=== PATIENT | male | born 1975 | race Caucasian/White ===

== ENCOUNTER 2021-03-15 08:12 | Emergency (ER) | payer BC, SELFPAY ==
[2021-03-15 08:14] VITALS: PULSE 94; RESP 28; TEMP 36.8; O2SAT 96; BMI 31.1
[2021-03-15 08:21] VITALS: BMI 31.1
--- NOTE | 2021-03-15 08:24 | EKG12_ITS ---
Test Reason : STROKE TEAM Blood Pressure : / mmHG Vent. Rate : 086 BPM Atrial Rate : 086 BPM P-R Int : 138 ms QRS Dur : 088 ms QT Int : 378 ms P-R-T Axes : 053 026 050 degrees QTc Int : 452 ms Normal sinus rhythm Low voltage QRS Borderline ECG Confirmed by CORNELIA LILLY, LORENA ([id number]), editor newspaper GUSTAVO AUSTIN ([id number]) on 03/16/2021 11:02:33 AM Referred By: JESSY Confirmed By:LORENA LOCKE MD
--- NOTE | 2021-03-15 08:24 | CT_ITS ---
STUDY: CT HEAD STROKE PROTOCOL W/O CONTRAST INJECTION REASON FOR EXAM: Male, 46 years old. Neuro deficit, acute, stroke suspected RADIATION DOSAGE (If Supplied By Facility): CTDIvol = ( ) mGy, DLP = ( ) mGycm TECHNIQUE: Transaxial CT imaging of the brain was performed without administration of intravenous contrast material. Individualized dose optimization techniques were used for this CT. COMPARISON: No relevant priors. FINDINGS: Normal soft tissue structures. Normal calvarium. Normal size ventricles and extra-axial spaces for the patient''s age. Normal white matter tracts of the cerebral hemispheres. Normal basal ganglia and thalami. Normal brainstem. Normal cerebellum. There is no intracranial hemorrhage. Subtle loss of leung-white differentiation within the right temporal lobe with increased attenuation of the right middle cerebral artery (dense MCA sign) worrisome for an acute right middle cerebral artery infarct. Mucosal thickening of the johnson of the left maxillary sinus consistent with chronic sinusitis. ASPECT score: CT/STROKE Brain/Head without Cont IMPRESSION: Suspect acute right middle cerebral artery infarct. No intracranial hemorrhage. Correlation with MRI is recommended. N.B. : The above Results were Read Back by Aman Mclaughlin MD to Fady Brian MD, and understanding confirmed on 03/15/2021 08:47:55 (ET). Electronically Signed: Aman Mclaughlin MD at 8:49 EST Tel , Service support ,
--- NOTE | 2021-03-15 08:24 | RAD_ITS ---
STUDY: X-RAY CHEST REASON FOR EXAM: Male, 46 years old. Neuro deficit, acute, stroke suspected TECHNIQUE: Single AP portable view of the chest. COMPARISON: None. FINDINGS: The lungs are clear and expanded. There is no demonstrated pleural abnormality. Normal size heart. Normal mediastinum and vernell. Normal visualized pulmonary arteries. Normal visualized aortic arch and descending thoracic aorta. Normal visualized thoracic spine. Normal visualized ribs, clavicles, and shoulders. There is no demonstrated abnormality of the visualized soft tissue structures of the upper abdomen. RAD/Chest 1 View IMPRESSION: Normal x-ray examination of the chest. Electronically Signed: Aman Mclaughlin MD at 9:21 EST Tel , Service support ,
[2021-03-15 08:25] VITALS: BP 124/88; PULSE 86; RESP 24; O2SAT 94
[2021-03-15 08:25] LABS: Bedside Glucose 123 mg/dL (70-110)
--- NOTE | 2021-03-15 08:25 | CT_ITS ---
STUDY: CTA HEAD AND NECK WITH CONTRAST REASON FOR EXAM: Male, 46 years old. Neuro deficit, acute, stroke suspected RADIATION DOSAGE (If Supplied By Facility): CTDIvol = ( 17.93 ) mGy, DLP = ( 804.30 ) mGycm TECHNIQUE: CT angiography was performed with a multi-detector CT scanner. Data acquisition was obtained from the skull base through the vertex following intravenous administration of . MIP images were reconstructed from the axial data set. Post-processing of the angiographic images was performed, with multiplanar reformation and 3D reconstruction. Individualized dose optimization techniques were used for this CT. COMPARISON: No relevant priors. FINDINGS: Normal bilateral petrous carotid arteries. Normal right cavernous carotid artery with a normal supraclinoid bifurcation. Normal left cavernous carotid artery with a normal supraclinoid bifurcation. Normal right A1 segments of the anterior cerebral artery. Normal left A1 segments of the anterior cerebral artery. Normal intact anterior communicating artery (ACOM). Normal bilateral A2 segments of the anterior cerebral arteries. Lack of enhancement of the M1 segment right middle cerebral artery with reconstitution distally in the sylvian fissure worrisome for occlusion. Oormal left M1 and M2 segments of the middle cerebral arteries, with a normal M1 bifurcation. Normal right posterior communicating artery (PCOM). Normal left posterior communicating artery (PCOM). Normal bilateral vertebral arteries. Normal basilar artery with a normal basilar bifurcation. The visualized bilateral superior cerebellar (SCA) arteries are normal. Normal bilateral P1, P2 and visualized P3 segments of the posterior cerebral arteries. There is no demonstrated aneurysm of the nikolski of Page. There is no demonstrated abnormality of the visualized brain. AORTIC ARCH: There is a bovine origin of the great vessels arising from the aortic arch with a common origin of the brachiocephalic and left common carotid artery. Normal origin of the left subclavian artery. Normal origins of the brachiocephalic, left common carotid, and left subclavian arteries. RIGHT CAROTID ARTERIES: Normal right common carotid artery (CCA). Normal right common carotid bulb. Normal origin of the right internal carotid (ICA) artery without a hemodynamically significant stenosis. Normal visualized cervical portion of the right internal carotid artery. Normal origin of the right external carotid artery (ECA). LEFT CAROTID ARTERIES: Normal left common carotid artery (CCA). Normal left common carotid bulb. Normal origin of the left internal carotid (ICA) artery without a hemodynamically significant stenosis. Normal visualized cervical portion of the left internal carotid artery. Normal origin of the left external carotid artery (ECA). VERTEBRAL ARTERIES: Normal bilateral vertebral arteries. CT/STROKE CTA Head AND Neck W/Con IMPRESSION: 1. Occluded M1 segment of the right middle cerebral artery with reconstitution of the distal M1 segment proximal M2 segment in the sylvian fissure. No other intracranial stenosis or aneurysm. 2. Bovine arch. 3. No carotid stenosis. 4. Patent vertebral arteries bilaterally. N.B. : The above Results were Read Back by Aman Mclaughlin MD to Fady Brian and understanding confirmed on 03/15/2021 09:00:34 (ET). Electronically Signed: Aman Mclaughlin MD at 9:02 EST Tel , Service support ,
[2021-03-15 08:35] LABS: Absolute Lymphocyte Count 1.02 X10^3/uL (0.83-4.51); Absolute Neutrophil Count 11.3 X10^3/uL (2.0-7.7); Basophil# 0.03 X10^3/uL; Basophil% 0.2 % (0-1); Eosinophil# 0.03 X10^3/uL; Eosinophils% 0.2 % (0-5); Hematocrit 39.4 % (40-54); Hemoglobin 13.2 g/dL (13.0-16.5); Lymphocyte # 1.02 X10^3/ul (0.83-4.51); Lymphocyte % 7.8 % (19-41); Mean Corp Hgb Conc 33.5 g/dL (32-36); Mean Corpuscular Hgb 32.1 pg (27.0-32.0); Mean Corpuscular Volume 95.9 fL (80-94); Mean Platelet Vol. 9.6 fl (6.2-12.0); Monocyte# 0.62 X10^3/uL; Monocyte% 4.8 % (0-10); NRBC Flagged by Analyzer 0 % (0-5); Neutrophil # 11.28 X10^3/uL (2.7-7.7); Neutrophil % 86.5 % (47-70); Platelet Count 262 K/mm3 (150-450); RBC Distribution Width CV 12.6 % (11.6-14.6); RBC Distribution Width SD 44.6 fl (35.1-43.9); Red Blood Count 4.11 M/mm3 (4.6-6.2); White Blood Count 13.1 K/mm3 (4.4-11.0)
[2021-03-15 08:37] VITALS: O2SAT 97; BMI 31.1
--- NOTE | 2021-03-15 08:40 | NURSING ---
NO OLD EKG IN OUR SYSTEM
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
[2021-03-15 08:52] LABS: Anion Gap 5 (5-15); BUN 14 mg/dL (7-18); BUN/Creat Ratio 15.4 RATIO (10-20); Calcium,Total 7.5 mg/dL (8.5-10.1); Chloride 114 mmol/L (98-107); Creatinine, Serum 0.91 mg/dL (0.70-1.30); EST Glomerular Filtration Rate 94 mL/min (>60); Est Glom Filt Rate - Afr Amer 114 mL/min (>60); Estimated Creatinine Clearance 99.27 ml/min; Glucose 94 mg/dL (74-106); Sodium Level 142 mmol/L (136-145); Troponin-I HS 6 pg/mL (3.0-78.0)
[2021-03-15 08:53] LABS: Alcohol, Blood (Medical)-Serum < 3.0 mg/dL
[2021-03-15 09:10] LABS: International Normalized Ratio 1.4; Prothrombin Time (Protime)PT. 16.2 SECONDS (11.7-14.9)
[2021-03-15 09:11] LABS: Partial Thromboplast Time 31.9 Seconds (24.1-36.2)
--- NOTE | 2021-03-15 09:16 | RAD_ITS ---
STUDY: X-RAY - PELVIS AND LEFT HIP REASON FOR EXAM: Male, 46 years old. pain TECHNIQUE: 3 views of the pelvis and hip. COMPARISON: None. FINDINGS: There is a non-specific bowel gas pattern. Normal visualized soft tissue structures. Normal bilateral iliac wings, sacroiliac joints and visualized sacrum. Normal bilateral superior and inferior pubic rami. Normal pubic symphysis. Normal bilateral ischial tuberosities. Normal visualized femoral head. Normal acetabulum. Normal hip joint. RAD/HIP, UNI W/ Pelvis 2-3 Views IMPRESSION: Normal x-ray examination of the pelvis and hip. Electronically Signed: Aman Mclaughlin MD at 9:53 EST Tel , Service support ,
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
[2021-03-15 09:18] VITALS: BP 118/86; PULSE 96; RESP 19; RESP 23; O2SAT 96; O2SAT 97
[2021-03-15 09:30] VITALS: BP 118/86; PULSE 76; RESP 19; O2SAT 97
[2021-03-15 09:36] VITALS: BP 118/76; PULSE 76; RESP 19; O2SAT 97
--- NOTE | 2021-03-15 09:37 | ED.RN ---
pt is NPO.
--- NOTE | 2021-03-15 09:51 | ED.RN ---
per pt okay to give information to son, leoncio.
--- NOTE | 2021-03-15 10:03 | ED.RN ---
per elsa at [facility], no RN report needed.
== END 2021-03-15 09:59 | disposition short-term general hospital (02) ==
PROVIDERS: Emergency Provider Emergency Medicine; PCP Family Medicine
DX: I63.511 Cerebral infarction due to unspecified occlusion or stenosis of right middle cerebral artery (principal); R47.81 Slurred speech; G83.24 Monoplegia of upper limb affecting left nondominant side; G83.14 Monoplegia of lower limb affecting left nondominant side; R29.810 Facial weakness; R29.712 NIHSS score 12; I10 Essential (primary) hypertension; G43.909 Migraine, unspecified, not intractable, without status migrainosus; Z79.899 Other long term (current) drug therapy; F17.210 Nicotine dependence, cigarettes, uncomplicated; Z86.73 Personal history of transient ischemic attack (TIA), and cerebral infarction without residual deficits
CPT/HCPCS: 70450; 70496; 70498; 71045; 73502; 73630; 80048; 82077; 82962; 84484; 85025; 85610; 85730; 93005; 99285; Q9967; A4216

== ENCOUNTER 2021-03-20 18:40 | Inpatient (IN) | payer BC, SELFPAY ==
[2021-03-20 18:57] VITALS: BMI 29.3
[2021-03-20 19:05] VITALS: BP 121/84; PULSE 82; RESP 16; TEMP 36.4; O2SAT 96
[2021-03-20 19:32] VITALS: O2SAT 98
[2021-03-20] MEDS: Atorvastatin Calcium 40 MG Tablet PO (21:51)
[2021-03-20 22:00] VITALS: BP 124/80; PULSE 80; RESP 18; TEMP 36.6; O2SAT 96
[2021-03-21] MEDS: Enoxaparin 40 MG/0.4 ML Syringe SC (05:49)
[2021-03-21 08:10] VITALS: O2SAT 95
[2021-03-21 08:33] VITALS: BP 105/62; PULSE 80; RESP 16; TEMP 36.1; O2SAT 96
[2021-03-21] MEDS: Pantoprazole Sodium 40 MG Tablet PO (08:51)
[2021-03-21 08:52] VITALS: BP 105/62; PULSE 80
[2021-03-21] MEDS: Methocarbamol 750 MG Tablet PO (08:52)
[2021-03-21] MEDS: Metoprolol(XL)Succ 25 MG Tablet PO (08:52)
[2021-03-21] MEDS: Aspirin 81 MG TAB.CHEW PO (08:52)
[2021-03-21] MEDS: Lisinopril 10 MG Tablet PO (08:53)
[2021-03-21] MEDS: Montelukast 10 MG Tablet PO (08:53)
[2021-03-21] MEDS: Acetaminophen 325 MG Tablet 650 MG PO ×2 (08:58→21:04)
[2021-03-21 09:24] LABS: ALB/GLOB Ratio 0.7 RATIO (0.9-2.4); AST(SGOT) 41 U/L (15-37); Alanine Aminotransfer ALT/SGPT 71 U/L (16-61); Alkaline Phosphatase 82 U/L (45-117); Anion Gap 6 (5-15); BUN 14 mg/dL (7-18); BUN/Creat Ratio 12.3 RATIO (10-20); Calcium,Total 9.3 mg/dL (8.5-10.1); Chloride 104 mmol/L (98-107); Creatinine, Serum 1.14 mg/dL (0.70-1.30); EST Glomerular Filtration Rate 73 mL/min (>60); Est Glom Filt Rate - Afr Amer 88 mL/min (>60); Estimated Creatinine Clearance 79.24 ml/min; Globulin 4.2 g/dL (2.2-4.2); Glucose 109 mg/dL (74-106); Magnesium 2.1 mg/dL (1.6-2.6); Phosphorus 2.8 mg/dL (2.5-4.9); Protein, Total 7.2 g/dL (6.4-8.2); Sodium Level 138 mmol/L (136-145)
[2021-03-21 10:06] LABS: Hematocrit 40.7 % (40-54); Hemoglobin 13.5 g/dL (13.0-16.5); Mean Corp Hgb Conc 33.2 g/dL (32-36); Mean Corpuscular Hgb 31.8 pg (27.0-32.0); Mean Corpuscular Volume 95.8 fL (80-94); Mean Platelet Vol. 9.6 fl (6.2-12.0); Platelet Count 365 K/mm3 (150-450); RBC Distribution Width CV 12.6 % (11.6-14.6); RBC Distribution Width SD 43.9 fl (35.1-43.9); Red Blood Count 4.25 M/mm3 (4.6-6.2); White Blood Count 7.1 K/mm3 (4.4-11.0)
--- NOTE | 2021-03-21 17:53 | HP.PCM_ITS ---
HPI - General General Date of Admission: 03/20/21 Date of Service: 03/21/21 Chief Complaint: Debility due to ischemic CVA. HPI Narrative CASTILLO HOLLINS, is a 46 YO M with a PMH of ischemic CVA (2018), CAD with AL and hx of PTCA/2 stent (2019), HTN, HLD, GERD, tobacco dependence and migraines who presented to the ED at [facility] on 03/15/21 c/o difficulty walking and falls. EMS found him to have a facial droop, slurred speech and Left side weakness. NIHSS score was 12 upon arrival to the ED. Initial head CT showed a dense MCA sign with edematous temporal lobe. He was not a candidate for TPA because he was outside the time window. A CTA showed an occluded M1 segment on the right. Consult with [facility] teleneurology was obtained and the patient was transferred to [facility] for possible endovascular intervention. Upon arrival at [facility] the NIHSS was 13. MRI showed an acute infarct in the right MCA territory involving the right putamen, head of the caudate nucleus, internal capsule, insular cortex and the anterior right temporal lobe. There were small punctate foci of restricted diffusion within the right frontal and parietal cortices. There was diffuse parenchymal edema in the areas of diffusion restriction, particularly the anterior right temporal lobe and right basal ganglia. There were small petechial hemorrhages throughout the infarcted regions of the right basal ganglia. Additional studies showed an ischemic penumbra. He underwent Thrombectomy with return of TICI3 flow. He was evaluated by PT/OT/ST and transfer to acute rehab was recommended. He was transferred to the Acute rehab unit at [facility] on 03/21/21 for 3 hours of therapy daily to restore function/independence at or near his prior level of function. 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 He has tried a nicotine patch and Chantix in the past to help him stop smoking and hen continues to help. [facility] Medical History (Updated 03/30/21 @ 11:[address] Anjum Munoz MD) Asthma History of CVA (cerebrovascular accident) HTN (hypertension) Migraine Renal cyst Home Medications atorvastatin 40 mg PO DAILY 03/15/21 [History Last Taken Unknown] lisinopril 10 mg PO DAILY 03/15/21 [History Last Taken Unknown] metoprolol succinate 25 mg PO DAILY 03/15/21 [History Last Taken Unknown] montelukast 10 mg PO DAILY 03/15/21 [History Last Taken Unknown] pantoprazole 40 mg PO DAILY 03/15/21 [History Last Taken Unknown] aspirin 81 mg PO DAILY 03/20/21 [History Last Taken Unknown] methocarbamol 750 mg PO Q8H 03/20/21 [History Last Taken Unknown] nicotine 1 patch TRANSDERMAL DAILY 03/20/21 [History Last Taken Unknown] Allergy/AdvReac Type Severity Reaction Status Date / Time bee venom protein (honey bee) Allergy NEEDS Verified 03/15/21 08:18 FOLLOW-UP Family History (Updated 03/28/21 @ 10:[address] Layla Parekh MD) Uncle CAD (coronary artery disease) Father Aneurysm Hypertension Mother Hypertension Other Myocardial infarction Family History unable to obtain Surgical History (Updated 03/21/21 @ 19:[address] hSalini Stanley DO) History of cholecystectomy History of cosmetic plastic surgery History of intravascular stent placement Social History (Updated 03/21/21 @ 19:[address] 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 Smoking Status: Current every day smoker tobacco type: cigarettes Tobacco: How many years used: 35 how long ago did patient quit smokin week quit status: considering quitting counseling given: provider counseling substance use type: does not use caffeine: Yes ROS Constitutional Constitutional: Reports fatigue and weakness; Denies anorexia, change in weight, chills, fever(s) or night sweats Eyes Eyes: Denies blurry vision, change in vision, double vision, eye pain or loss of vision ENT HEENT: Denies abnormal hearing, dental pain, dysphagia, headache(s), hearing loss, nasal congestion or sore throat Cardiovascular Cardiovascular: Reports chest pain; Denies dyspnea on exertion, edema, light headedness, orthopnea, palpitations, paroxysmal nocturnal dyspnea or syncope Respiratory/Chest Respiratory/Chest: Denies cough, dyspnea, shortness of breath at rest, shortness of breath with exertion or wheezing Gastrointestinal Gastrointestinal: Denies abdominal pain, constipation, diarrhea, dyspepsia, hematemesis, hematochezia, nausea or vomiting Genitourinary Genitourinary: Denies dysuria, hematuria, nocturia, urinary frequency, urinary hesitancy, urinary incontinence or urinary urgency Musculoskeletal Musculoskeletal: Reports muscle weakness and neck pain; Denies back pain, joint pain or joint swelling Integumentary Integumentary: Denies jaundice, rash or wounds Neurologic Neurologic: Reports abnormal gait, confusion, focal weakness and headache(s); Denies disequilibrium, dizziness, paresthesias, seizures or tremor(s) Psychiatric Psychiatric: Denies anxiety, depression, homicidal ideation or suicidal ideation Endocrine Endocrinology: Denies change in body appearance, polydipsia or polyuria Hematologic/Lymphatic Hematologic/Lymphatic: Denies easy bleeding, easy bruising or lymphadenopathy Allergic/Immunologic Allergic/Immunologic: Denies rhinitis, eczemia or asthma Vital Signs Vital Signs Vital Signs: 03/20/21 19:05 03/20/21 19:32 03/20/21 22:00 Temperature 97.6 F L 97.8 F Temperature Source Oral Oral Pulse Rate 82 80 Respiratory Rate 16 18 Blood Pressure 121/84 H 124/80 H Blood Pressure Mean 96 94 Blood Pressure Source Monitor Monitor Blood Pressure Position Semi-Fowlers Semi-Fowlers Blood Pressure Location Right Arm Right Arm Pulse Ox 96 98 96 Oxygen Delivery Method Room Air Room Air Room Air 03/21/21 08:10 03/21/21 08:33 03/21/21 08:52 Temperature 97.0 F L Temperature Source Oral Pulse Rate 80 80 Respiratory Rate 16 Blood Pressure 105/62 105/62 Blood Pressure Mean 76 Blood Pressure Source Monitor Blood Pressure Position Sitting Blood Pressure Location Right Arm Pulse Ox 95 96 Oxygen Delivery Method Room Air Room Air Weight Weight: 194 lb 10.691 oz Body Mass Index (BMI) 29.3 Indicators for Scoring Admitted with or Primary Diagnosis of CVA/Stroke: Yes Hx of CVA/Stroke: Yes Modified Macy Score MRS Score at time of Evaluation: 3-Moderate disability NIHSS NIHSS 1a. Level of Consciousness: Alert; keenly responsive 1b. LOC Questions: Answers BOTH questions correctly. 1c. LOC Commands: Performs both tasks correctly. 2. Best Gaze: Normal 3. Visual: No visual loss 4. Facial Palsy: Normal symmetrical movements 5a. Left Arm: Drift; arm drifts downward but doesn?t hit the bed 5b. Right Arm: No drift; arm holds 90 (or 45) degrees for full 10 seconds 6a. Left Leg: Drift; leg falls by the end of 5-seconds, but does not hit bed 6b. Right Leg: No drift; leg holds 30-degree position for full 5 seconds 7. Limb Ataxia: Present in 1 limb 8. Sensory: Normal; no sensory loss 9. Best Language: No aphasia; normal 10. Dysarthria: Normal 11. Extinction and Inattention: Visual, tactile, auditory, spatial, or personal inattention Total: 4 Physical Exam Const alert, oriented x3 and no apparent distress Constitutional Narrative: Thinks he can do more than he can but, realizes he would not be able to do his job at this time. Poor safety awareness. General Appearance: cooperative HEENT head/scalp atraumatic and moist oral mucous membranes HEENT Narrative: teeth are in poor repair and are stained Eyes PERRL and EOMs intact bilaterally Eyes Narrative: no nystagmus Neck No nuchal rigidity and no carotid bruits Resp normal respiratory effort and clear to auscultation bilaterally Resp Narrative: no conversational dyspnea Auscultation: Negative for rales or wheezes Cardio regular rate, regular rhythm, S1 normal heart sound, S2 normal heart sound, no murmurs, no rub and no gallops GI normal to inspection, nondistended, normoactive bowel sounds, soft to palpation and non-tender Extremity no clubbing, cyanosis or edema and no calf tenderness Skin Skin Narrative: scarring from rowell as a child and subsequent plastic surgery Neuro CN's II-XII intact bilaterally Neuro Narrative: see the NIHSS scoring. PT notes he has an ataxic gait with scissoring and he has left side neglect and has been running into the doorways per nursing. Impulsive per OT. He scored only 64 out of 100 on JENNIFER-III. Will need daily ST. No problems with swallowing Psych cooperative, denies homicidal ideation and denies suicidal ideation Psych Narrative: he seems euphoric to me and not reality based with regard to the fact that he has now had 2 coronary stents and 2 strokes and his risk for addtional events is high and he is only 46 YOA. Results Lab / Micro Data Result Diagrams: 03/21/21 08:28 03/21/21 08:28 Labs: Laboratory Results - last 24 hr 03/21/21 08:28: WBC 7.1, RBC 4.25 L, Hgb 13.5, Hct 40.7, MCV 95.8 H, MCH 31.8, MCHC 33.2, RDW Std Deviation 43.9, RDW Coeff of Elbert 12.6, Plt Count 365, MPV 9.6 03/21/21 08:28: Sodium 138, Potassium 4.0, Chloride 104, Carbon Dioxide 28.0, Anion Gap 6, BUN 14, Creatinine 1.14, Estim Creat Clear Calc 79.24, Est GFR (MDRD) Af Amer 88, Est GFR (MDRD) Non-Af 73, BUN/Creatinine Ratio 12.3, Glucose 109 H, Calcium 9.3, Phosphorus 2.8, Magnesium 2.1, Total Bilirubin 0.40, AST 41 H, ALT 71 H, Alkaline Phosphatase 82, Total Protein 7.2, Albumin 3.0 L, Globulin 4.2, Albumin/Globulin Ratio 0.7 L Assessment & Plan Assessment/Plan (1) Physical debility: (2) Acute ischemic right MCA stroke: (3) Left-sided weakness: (4) Cognitive dysfunction: (5) Left-sided neglect: (6) CAD (coronary artery disease): (7) Caffeine addiction: (8) Cephalgia: (9) Asthma: (10) GERD (gastroesophageal reflux disease): (11) Hematoma: (12) Tobacco dependence: PLAN: PLAN PT for gait stability OT for ADL's ST for evaluation Analgesics as needed Bowel protocol Fall precautions Assess for Anxiety/Depression GI prophylaxis with pantoprazole DVT prophylaxis with enoxaparin Follow up with PCP, neurology, cardiology following DC from IP Rehab AM lab including CMP, CBC, Mag and Phos Nicotine patch Smoking cessation counseling was given. I also advised him to discontinue caffeine but he refused stating that he could not give up both at the same time. Encouraged him to follow up with cardiology He had a stent to the LAD and the RCA and has continued to smoke. I told him the stents can clot off and he needs to be followed by a dry cleaning manager. He is already resisting advice on how to prevent additional cardiovascular events going forward and he is strangely unconcerned? Will need to talk with his fiancee about personality changes. Both Castillo and his GF tell me they told him at [facility] his heart was OK? Charges/Coding Visit Charges Inpatient E&M: 44962 Init Hosp L3
[2021-03-21 18:01] VITALS: BMI 29.3
--- NOTE | 2021-03-21 18:22 | PCM.RU.PYE ---
Admission Information Primary Diagnosis:: Debility secondary to ischemic CVA Status Changes from Prescreening?: No changes Identified Actual Problem List:: Pain, ALteration in Cmfrt, Cognitve Impr/Memory Loss, Alteration in Sleep, Mobility Impaired, Self Care Deficit, BP, Hypertension and Alteration-Leisure Activ. Potential Problem List:: DVT, Bleeding, Infection, UTI, Aspiration, Falls, Skin Integrity and Depression Risk of Complications DVT: LMWH and ANGIE Hose Bleeding: Monitor Lab Values, Nursing to Teach Precautions for anti-coagulation therapy., Wound, if applicable, to be assessed every shift. and Stroke patients assessed for lethargy or change in status. Infection: Clinical Staff to Monitor for S/S of infection: and S/S of infection include fever, redness, warmth, etc. Urinary Tract Infection: Monitor for frequency, burning, discomfort, or incontinence. and Nursing will obtain urine sample for urinalysis and C&S when ordered. Aspiration: Clinical staff will monitor for coughing, drooling, congestion., Speech will evaluate swallowing and dsyphasia. and Nursing will monitor patient swallowing during meals. Falls: Patient will be evaluated for Fall Precautions and Patient will be placed on Fall Precautions as indicated per protocol. Skin Breakdown: Nursing will assess skin daily using assessment tool. and Nursing will place on Skin Breakdown Precautions as indicated. Pain: Clinical staff will assess patient's pain level per protocol., Medications will be given, if needed, and the pain level reassessed. and Other methods: Massage, distraction, decrease stimulus, etc. used PRN. Plan of Care Patient requires physician specializing in physical medicine and rehab oversight to provide close medical supervision of rehab issues including: Pain Management, Sleep Problems, Bowel and Bladder, Medical and co-morbidity Management, DVT prophylaxis, Rehabilitation Leadership and Coordination of treatment team Patient needs Physical Therapy: For a minimum of 1 hour and At least 5 out of 7 days Patient needs Physical Therapy to improve:: Mobility, Strengthening, Transfers, Stretching, ROM, Endurance, Stairs, Gait and Balance Patient needs Occupational Therapy: For a minimum of 1 hour and At least 5 out of 7 days Patient needs Occupational Therapy to improve ADL's incl.: Eating, Grooming, Bathing, Dressing, Toileting, Toilet transfers, Community Reintegration, Higher functioning activities, Household tasks, Adaptive Equipment, Splinting and Other activities as determined Patient requires speech therapy: For a minimum of 1 hour and At least 5 out of 7 days Patient requires speech therapy for: Swallowing, Cognition, Language Skills and Compensatory Strategies Patient requires 24/ Rehabilitation Nursing for: Pain Issues, Identifying and preventing risk factors, Monitoring and reporting current medical conditions, Assisting with ambulation, transfer, and all ADL's, Teaching patients about disease process and medications, Family teaching, Providing safe environment, Bowel and Bladder Issues, Skin integrity and Medication Management Patient needs Upholsterer Helper/ Case Management for: Discharge Planning, Arranging Home Equipment or Services and Family Interventions Patient needs Dietary and Nutrition Services for: Adequate Nutrition, Nutritional Supplements and Nutritional Education Goals Patient will remain: free from falls and or injury at time of discharge. Patient will perform bed mobility at: MOD I level of assist. Patient will complete transfers from bed to chair at: MOD I level of assist. Patient will ambulate: with LRD and - (200 feet) Patient will complete upper body dressing at: MOD I level of assist. Patient will complete lower body dressing at: MOD I level of assist. Patient will complete toileting at: MOD I level of assist. Patient will perform bathing at: MOD I level of assist. Patient will complete grooming at: MOD I level of assist. Patient will complete home management skills at: MOD I level of assist. Patient will achieve: 12 stairs and - (1 curb step) Patient will have pain level of: of 3 or less Patient's skin will: remain intact Patient will receive: adequate nutrition. Discharge Planning Pt Prognosis for Sig. Practical Improv. w/in Reasonable Time: Good Estimated Length of stay (days): 21 Anticipated D/C Destination: Home with Outpt Therapy Was Preadmission Assessment Accurate?: Yes
[2021-03-21 19:25] VITALS: BP 109/61; PULSE 65; RESP 18; TEMP 36.5; O2SAT 95
[2021-03-21] MEDS: Atorvastatin Calcium 40 MG Tablet PO (20:51)
[2021-03-21] MEDS: oxyCODONE 5 MG Tablet PO (21:04)
[2021-03-21 22:00] VITALS: PULSE 65; RESP 16
[2021-03-22] MEDS: oxyCODONE 5 MG Tablet PO (04:52)
[2021-03-22] MEDS: Enoxaparin 40 MG/0.4 ML Syringe SC (04:54)
[2021-03-22 05:00] VITALS: BMI 29.3
[2021-03-22 07:40] VITALS: O2SAT 94
[2021-03-22 08:11] VITALS: BP 95/69; PULSE 88; RESP 16; TEMP 36.7; O2SAT 96
[2021-03-22] MEDS: Montelukast 10 MG Tablet PO (08:41)
[2021-03-22] MEDS: Pantoprazole Sodium 40 MG Tablet PO (08:41)
[2021-03-22] MEDS: Aspirin 81 MG TAB.CHEW PO (08:41)
[2021-03-22 11:35] VITALS: PULSE 74
[2021-03-22] MEDS: Metoprolol(XL)Succ 25 MG Tablet PO (11:35)
[2021-03-22] MEDS: Lisinopril 10 MG Tablet PO (11:35)
[2021-03-22 17:00] VITALS: BMI 29.3
[2021-03-22 21:22] VITALS: BP 109/77; PULSE 67; RESP 16; TEMP 36.7; O2SAT 98
[2021-03-22] MEDS: Atorvastatin Calcium 40 MG Tablet PO (21:48)
[2021-03-23] MEDS: Enoxaparin 40 MG/0.4 ML Syringe SC (05:38)
[2021-03-23 07:42] VITALS: BP 99/72; PULSE 98; RESP 16; TEMP 36.5; O2SAT 98
[2021-03-23] MEDS: Montelukast 10 MG Tablet PO (07:51)
[2021-03-23] MEDS: Pantoprazole Sodium 40 MG Tablet PO (07:53)
[2021-03-23] MEDS: Aspirin 81 MG TAB.CHEW PO (07:53)
[2021-03-23] MEDS: oxyCODONE 5 MG Tablet PO ×2 (07:59→14:22)
[2021-03-23 09:00] VITALS: O2SAT 96
[2021-03-23 09:26] VITALS: BMI 29.3
--- NOTE | 2021-03-23 10:53 | PCM.PROGNOTE ---
Subjective Subjective Afebrile VSS -blood pressure this a.m. is 99/72 and last evening was 109/77. Maintaining appropriate oxygen saturation on RA Oral intake is adequate Discussed with nursing - no problems that need addressed Reviewed the PT/OT/ST notes. He has significant left side neglect. Visual and tactile and spatial neglect. significant cognitive deficit. Medication list reviewed. Castillo denies lightheadedness, chest pain, shortness of breath, calf pain, abdominal pain, dysuria, lightheadedness. His only complaint today is a headache which I suspect is due to caffeine withdrawal. Objective Data Objective Data Vital Signs: Vital Signs Temp Pulse Resp BP Pulse Ox 97.7 F L 98 16 99/72 98 03/23/21 07:42 03/23/21 07:42 03/23/21 07:42 03/23/21 07:42 03/23/21 07:42 Oxygen Delivery Method Room Air Weight: 194 lb 10.691 oz Body Mass Index (BMI) 29.3 Intake & Output: Intake and Output for Last 24 Hours 03/21/21 03/22/21 03/23/21 23:59 23:59 23:59 Intake Total 2160 / 2160 1240 / 1240 360 / 360 Balance 2160 / 2160 1240 / 1240 360 / 360 Lab / Micro Data Result Diagrams: 03/21/21 08:28 03/21/21 08:28 Physical Exam Const alert, oriented x3 and no apparent distress Resp clear to auscultation bilaterally Cardio regular rate and regular rhythm GI normal to inspection, nondistended, normoactive bowel sounds, soft to palpation and non-tender Extremity no calf tenderness and no pedal edema Skin General Skin Exam: no breakdown Rashes: no rashes Assessment & Plan Assessment/Plan (1) Caffeine addiction: (2) Acute ischemic right MCA stroke: (3) Left-sided neglect: (4) Left-sided weakness: (5) Physical debility: (6) Cephalgia: (7) Tobacco dependence: PLAN: 1. Patient was counseled about smoking cessation once again today and he is committed to trying to stop smoking altogether. 2. Continue caffeine free diet 3. encouraged increased water intake 4. GERD is better than at admission 5. Continue therapy Charges/Coding Visit Charges Inpatient E&M: 55381 Subs Hosp L2
[2021-03-23 11:14] VITALS: BP 93/66; PULSE 69; RESP 18
[2021-03-23 11:18] VITALS: BP 93/66; PULSE 69
[2021-03-23 19:30] VITALS: BP 121/78; PULSE 70; PULSE 85; RESP 14; TEMP 36.6; TEMP 36.7; O2SAT 98; BMI 29.3
[2021-03-23] MEDS: Atorvastatin Calcium 40 MG Tablet PO (19:47)
[2021-03-24] MEDS: Enoxaparin 40 MG/0.4 ML Syringe SC (05:27)
[2021-03-24 07:49] VITALS: BP 115/75; PULSE 83
[2021-03-24] MEDS: Metoprolol(XL)Succ 25 MG Tablet PO (07:49)
[2021-03-24] MEDS: Montelukast 10 MG Tablet PO (07:49)
[2021-03-24] MEDS: Aspirin 81 MG TAB.CHEW PO (07:49)
[2021-03-24] MEDS: Lisinopril 5 MG Tablet PO (07:49)
[2021-03-24] MEDS: Pantoprazole Sodium 40 MG Tablet PO (07:49)
[2021-03-24 08:47] VITALS: BP 115/75; PULSE 83; RESP 18; TEMP 36.9; O2SAT 96
[2021-03-24 11:35] VITALS: O2SAT 97
[2021-03-24] MEDS: oxyCODONE 5 MG Tablet PO (11:44)
[2021-03-24 12:40] VITALS: BMI 29.3
--- NOTE | 2021-03-24 13:20 | PCM.PROGNOTE ---
Subjective Subjective Castillo was seen on team rounds today. His fianc?e Francisca was present in the room. His mother Leyla participated by phone. Afebrile VSS-blood pressure is well controlled. He denies lightheadedness. Maintaining appropriate oxygen saturation on RA Oral intake is good Discussed with nursing - no problems that need addressed Reviewed the PT/OT/ST notes and was present for their presentations in the room Medication list reviewed. Castillo denies chest pain, shortness of breath, cough, dysuria, abdominal pain, nausea/vomiting, lightheadedness. The Oxycodone is effective in controlling the cephalgia which I suspect is due to caffeine withdrawal......he is drinking caffeine free coffee on rehab. He is committed to stop smoking. Objective Data Objective Data Vital Signs: Vital Signs Temp Pulse Resp BP Pulse Ox 98.4 F 83 18 115/75 97 03/24/21 08:47 03/24/21 08:47 03/24/21 08:47 03/24/21 08:47 03/24/21 11:35 Oxygen Delivery Method Room Air Weight: 194 lb 10.691 oz Body Mass Index (BMI) 29.3 Intake & Output: Intake and Output for Last 24 Hours 03/22/21 03/23/21 03/24/21 23:59 23:59 23:59 Intake Total 1240 / 1240 1340 / 1340 Balance 1240 / 1240 1340 / 1340 Lab / Micro Data Result Diagrams: 03/21/21 08:28 03/21/21 08:28 Physical Exam Const alert, oriented x3 and no apparent distress Constitutional Narrative: Sitting in the recliner at the bedside. General Appearance: cooperative HEENT head/scalp atraumatic Mouth: dry mucous membranes Eyes PERRL and EOMs intact bilaterally Eyes Narrative: Still having left side visual neglect but is learning to scan Neck supple and no JVD Resp normal respiratory effort and clear to auscultation bilaterally Resp Narrative: No conversational dyspnea. GI normal to inspection, nondistended, normoactive bowel sounds, soft to palpation and non-tender Extremity General Extremity: Negative for clubbing or edema Skin General Skin Exam: no breakdown Rashes: no rashes Wounds: Negative for wounds noted Neuro CN's II-XII intact bilaterally Neuro Narrative: Weak on the left side. He is ambulating with a straight cane now up to 500 feet. He is easily distracted and technique suffers. I think his biggest challenges are going to cognitive. No driving at [place]. Recommend he attend the driving school in [place] prior to attempting to drive. Psych cooperative Psych Narrative: seems a little too euphoric for his situation Assessment & Plan Assessment/Plan (1) Physical debility: (2) Acute ischemic right MCA stroke: (3) Cognitive dysfunction: (4) Left-sided neglect: (5) Left-sided weakness: (6) Cephalgia: (7) GERD (gastroesophageal reflux disease): (8) CAD (coronary artery disease): (9) Tobacco dependence: (10) Caffeine addiction: PLAN: 1. BENTLEY is likely due to caffeine withdrawal. 2. Continue therapy 3. He has no FMLA from his place of employment. 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 No Driving at [place] 5. Encouraged his fiancee to bring in FMLA papers for herself. Castillo has poor safety awareness and he will need 24/7 supervision when he is discharged. 6. He has not complained of GERD in the past few days.......probably because he is on a caffeine free diet here Charges/Coding Visit Charges Inpatient E&M: 53533 Subs Hosp L2
--- NOTE | 2021-03-24 13:41 | CASEMGMT ---
Social Work IDT met with patient, elzbieta' in room, and mother via conference call for Team meeting. Discussed patient's progress in therapy and nursing. Pt progressing well. Struggling with grasping and left side neglect. ST following. The goal is for pt to return home with elzbieta', but elzbieta' works. Recommended [facility] paperwork for elzbieta' as pt cannot be home alone for the initial transition until it is safe or for mother to assist. Explained [facility] insurance with NRD 03/25 and continued stay is not guaranteed. SW to continue to follow. Sharmila Colby, TRAVEL REGISTERED NURSE NICU PAPERHANGER AND PAINTER
[2021-03-24] MEDS: Atorvastatin Calcium 40 MG Tablet PO (19:29)
[2021-03-24 19:42] VITALS: BP 113/65; PULSE 65; RESP 16; TEMP 36.7; O2SAT 98
[2021-03-25] MEDS: oxyCODONE 5 MG Tablet PO ×2 (02:12→17:37)
[2021-03-25 04:29] VITALS: BMI 29.3
[2021-03-25] MEDS: Enoxaparin 40 MG/0.4 ML Syringe SC (06:07)
[2021-03-25 07:30] VITALS: BP 122/73; PULSE 83; RESP 18; TEMP 36.9; O2SAT 96
[2021-03-25] MEDS: Pantoprazole Sodium 40 MG Tablet PO (08:13)
[2021-03-25] MEDS: Aspirin 81 MG TAB.CHEW PO (08:13)
[2021-03-25 08:14] VITALS: PULSE 83
[2021-03-25] MEDS: Metoprolol(XL)Succ 25 MG Tablet PO (08:14)
[2021-03-25] MEDS: Lisinopril 5 MG Tablet PO (08:14)
[2021-03-25] MEDS: Montelukast 10 MG Tablet PO (08:14)
--- NOTE | 2021-03-25 12:07 | PCM.PN.BLA ---
Progress Note Afebrile VSS blood pressures well controlled. Maintaining appropriate oxygen saturation on RA Oral intake is adequate Discussed with nursing - no problems that need addressed Reviewed the PT/OT/ST notes Medication list reviewed. Continues to complain of cephalgia which is located in the back of the neck and along the trapezius ridges. He denies chest pain, shortness of breath, change in vision, loss of vision, lightheadedness, calf pain. Tells me he did not sleep well last night......blames it on a BENTLEY. Alert and oriented x3, sitting in the recliner and looks comfortable Lungs-clear to auscultation with good air exchange. No conversational dyspnea. Heart-regular rate and rhythm Abdomen-soft, nontender, nondistended, normal bowel sounds No calf pain, no edema Affect is strange. At times he is almost euphoric and at others he is barely cordial? I suspect there is he may have an underlying mental health disorder. Assessment & Plan Assessment/Plan (1) Left-sided weakness: (2) Left-sided neglect: (3) Cognitive dysfunction: (4) Cephalgia: (5) Acute ischemic right MCA stroke: PLAN: 1. Start Elavil at HS to help with sleep and he may have some underlying depression now. 2. Continue therapy 3. Arthritis cream to the posterior neck and the BL trapezius ridges BID 4. Continue therapy. Visit Charges Inpatient E&M: 67563 Subs Hosp L2
[2021-03-25 14:37] VITALS: BMI 29.3
[2021-03-25] MEDS: Arthritis Pain Compound 60 CLICK TUBE TOPICAL ×2 (14:54→19:35)
[2021-03-25 19:30] VITALS: BP 105/66; PULSE 66; RESP 16; TEMP 37.1; O2SAT 97
[2021-03-25] MEDS: Atorvastatin Calcium 40 MG Tablet PO (19:35)
[2021-03-25] MEDS: Amitriptyline 25 MG Tablet 50 MG PO (19:36)
[2021-03-26] MEDS: Enoxaparin 40 MG/0.4 ML Syringe SC (05:56)
[2021-03-26 07:43] VITALS: PULSE 70
[2021-03-26] MEDS: Aspirin 81 MG TAB.CHEW PO (07:43)
[2021-03-26] MEDS: Lisinopril 5 MG Tablet PO (07:43)
[2021-03-26] MEDS: Metoprolol(XL)Succ 25 MG Tablet PO (07:43)
[2021-03-26] MEDS: Montelukast 10 MG Tablet PO (07:43)
[2021-03-26] MEDS: Pantoprazole Sodium 40 MG Tablet PO (07:43)
[2021-03-26] MEDS: Arthritis Pain Compound 60 CLICK TUBE TOPICAL ×2 (07:46→20:43)
[2021-03-26 08:00] VITALS: BP 112/70; PULSE 64; RESP 17; TEMP 36.7; O2SAT 97
[2021-03-26 13:52] VITALS: BMI 29.3
[2021-03-26] MEDS: Atorvastatin Calcium 40 MG Tablet PO (20:44)
[2021-03-26] MEDS: Amitriptyline 25 MG Tablet 50 MG PO (20:44)
[2021-03-26 22:00] VITALS: BP 100/67; PULSE 67; RESP 16; TEMP 36; O2SAT 100
[2021-03-27] MEDS: Enoxaparin 40 MG/0.4 ML Syringe SC (06:13)
[2021-03-27 08:33] VITALS: BP 95/67; PULSE 79; RESP 16; TEMP 36.7; O2SAT 98
[2021-03-27 10:13] VITALS: BP 106/75; PULSE 73
[2021-03-27 10:21] VITALS: PULSE 73
[2021-03-27] MEDS: Montelukast 10 MG Tablet PO (10:21)
[2021-03-27] MEDS: Arthritis Pain Compound 60 CLICK TUBE TOPICAL (10:21)
[2021-03-27] MEDS: Pantoprazole Sodium 40 MG Tablet PO (10:21)
[2021-03-27] MEDS: Aspirin 81 MG TAB.CHEW PO (10:21)
[2021-03-27] MEDS: Metoprolol(XL)Succ 25 MG Tablet PO (10:21)
[2021-03-27 14:10] VITALS: BMI 29.3
[2021-03-27 21:00] VITALS: BP 131/87; PULSE 79; RESP 14; TEMP 36.9; O2SAT 97; BMI 29.3
[2021-03-27] MEDS: Atorvastatin Calcium 40 MG Tablet PO (21:08)
[2021-03-27] MEDS: Amitriptyline 25 MG Tablet 50 MG PO (21:08)
--- NOTE | 2021-03-28 03:17 | NURSING ---
REVIEWED AND AGREE WITH HORTICULTURAL FARMER'S FUNCTIONAL ASSESSMENT AND HANDOFF CHARTING.
[2021-03-28] MEDS: Enoxaparin 40 MG/0.4 ML Syringe SC (05:36)
[2021-03-28 07:30] VITALS: BP 100/57; PULSE 76; RESP 16; TEMP 36.7; O2SAT 94
[2021-03-28] MEDS: Pantoprazole Sodium 40 MG Tablet PO (07:53)
[2021-03-28] MEDS: Aspirin 81 MG TAB.CHEW PO (07:53)
[2021-03-28 07:54] VITALS: PULSE 78
[2021-03-28] MEDS: Metoprolol(XL)Succ 25 MG Tablet PO (07:54)
[2021-03-28] MEDS: Montelukast 10 MG Tablet PO (07:54)
--- NOTE | 2021-03-28 09:26 | NURSING ---
Patient had just finished therapy session and he complained of chest pain and pressure. Up in chair resting. patient's skin is diaphorectic. Dr. Stanley made aware, ekg and troponin lab ordered at this time.
[2021-03-28 09:28] VITALS: BP 142/90; PULSE 78; RESP 18; TEMP 35.7
--- NOTE | 2021-03-28 09:35 | NURSING ---
[employer] Team arrived.
[2021-03-28 09:51] VITALS: BP 114/72; PULSE 75
[2021-03-28] MEDS: Nitroglycerin (INPATIENT USE) 0.4 MG TAB.SUBL SL (09:51)
[2021-03-28] MEDS: Lisinopril 5 MG Tablet PO (09:54)
--- NOTE | 2021-03-28 09:55 | NURSING ---
Family aware, patient will be going to PCU and [facility] team arrived and left.
[2021-03-28 10:23] LABS: Troponin-I HS 18 pg/mL (3.0-78.0)
--- NOTE | 2021-03-30 11:30 | PCM.DC.SUM ---
Providers Date of Admission: 03/20/21 Date of Discharge: 03/28/21 Primary Care Physician: Dr. Kristie Magdaleno MD Reason For Visit: STROKE Diagnosis Discharge Diagnosis (1) Chest pain: Status: Acute Code(s): R07.9 - Chest pain, unspecified Qualifiers: Chest pain type: unspecified Qualified Code(s): R07.9 - Chest pain, unspecified (2) Physical debility: Status: Acute Code(s): R53.81 - Other malaise (3) Acute ischemic right MCA stroke: Status: Acute Code(s): I63.511 - Cerebral infarction due to unspecified occlusion or stenosis of right middle cerebral artery (4) Left-sided weakness: Status: Acute Code(s): R53.1 - Weakness (5) Cognitive dysfunction: Status: Acute Code(s): F09 - Unspecified mental disorder due to known physiological condition (6) Left-sided neglect: Status: Acute Code(s): 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 (7) CAD (coronary artery disease): Status: Acute Code(s): I25.10 - Atherosclerotic heart disease of ruby coronary artery without angina pectoris (8) HTN (hypertension): Status: Chronic Code(s): I10 - Essential (primary) hypertension (9) Caffeine addiction: Status: Acute Code(s): F15.20 - Other stimulant dependence, uncomplicated (10) Cephalgia: Status: Acute Code(s): R51.9 - Headache, unspecified (11) Asthma: Status: Acute Code(s): J45.909 - Unspecified asthma, uncomplicated (12) GERD (gastroesophageal reflux disease): Status: Acute Code(s): K21.9 - Gastro-esophageal reflux disease without esophagitis (13) Hematoma: Status: Acute Code(s): T14.8XXA - Other injury of unspecified body region, initial encounter (14) Tobacco dependence: Status: Acute Code(s): F17.200 - Nicotine dependence, unspecified, uncomplicated Medications at Discharge Home Medications atorvastatin 40 mg PO DAILY 03/15/21 lisinopril 10 mg PO DAILY 03/15/21 metoprolol succinate 25 mg PO DAILY 03/15/21 montelukast 10 mg PO DAILY 03/15/21 pantoprazole 40 mg PO DAILY 03/15/21 aspirin 81 mg PO DAILY 03/20/21 methocarbamol 750 mg PO Q8H 03/20/21 nicotine 1 patch TRANSDERMAL DAILY 03/20/21 Hospital Course Operations None Procedures None Summary of Care Provided Minutes Spent on Discharge: 30 Hospital Course: ANNEMARIE HOLLINS, is a 46 YO M with a PMH of ischemic CVA (2018), CAD with GA and hx of PTCA/2 stent (2018), HTN, HLD, GERD, tobacco dependence and migraines who presented to the ED at [facility] on 03/15/21 c/o difficulty walking and falls. EMS found him to have a facial droop, slurred speech and Left side weakness. NIHSS score was 12 upon arrival to the ED. Initial head CT showed a dense MCA sign with edematous temporal lobe. He was not a candidate for TPA because he was outside the time window. A CTA showed an occluded M1 segment on the right. Consult with [facility] teleneurology was obtained and the patient was transferred to [facility] for possible endovascular intervention. Upon arrival at [facility] the NIHSS was 13. MRI showed an acute infarct in the right MCA territory involving the right putamen, head of the caudate nucleus, internal capsule, insular cortex and the anterior right temporal lobe. There were small punctate foci of restricted diffusion within the right frontal and parietal cortices. There was diffuse parenchymal edema in the areas of diffusion restriction, particularly the anterior right temporal lobe and right basal ganglia. There were small petechial hemorrhages throughout the infarcted regions of the right basal ganglia. Additional studies showed an ischemic penumbra. He underwent Thrombectomy with return of TICI3 flow. He was evaluated by PT/OT/ST and transfer to acute rehab was recommended. He was transferred to the Acute rehab unit at [facility] on 03/21/21 for 3 hours of therapy daily to restore function/independence at or near his prior level of function. Annemarie was progressing well with PT/OT. His biggest problem is with cognition. He also is strangely euphoric and unconcerned with regard to the fact that he is only 46 years old and has had 2 strokes and 2 cardiac stents. He apparently has no sick time and no FMLA where he works and is concerned about how he will support his family if he can not work. His fiancee met with the and he may need to apply sooner rather than later for disability. The fiancee was encouraged to bring in [place] papers because Annemarie has poor safety awareness and he is impulsive and he will need to be monitored at home 22/11 for the first few weeks. On 03/28/21 Annemarie complained to his nurse that he had CP. A AIR CARRIER INSPECTOR was called. The EKG showed no ST elevation or significant ST depression. Since he has a known hx of CAD with stents to the LAD and RCA in 2019 and he continued to smoke he must be evaluated and monitored to r/o NSTEMI/unstable angina. He was transferred to PCU and serial troponins and cardiology consult was ordered. since he is not yet 48 and has now and 2 cardiac stents and 2 strokes and now possibly an GA I think we should r/o a hypercoagulable disorder and when he is off anticoagulants will order a hypercoagulable panel. Physical Exam Narrative I was not in the building at the time of the chest pain and therefore did not examine at the time of his DC from rehab. Please see Dr. Parekh's H&P for the results of her PE on the day of DC. Weight / BMI Weight Weight: 197 lb Body Mass Index (BMI) 29.3 ABG / Lab / Microbiology Data Result Diagrams: 03/21/21 08:28 03/21/21 08:28 Meaningful Use Info Meaningful Use Diagnoses (Choose all that apply): Ischemic CVA CVA Therapy Assessed for PT,OT and/or ST?: Yes Ischemic Stroke Antithrombotic order at d/c?: Yes Dx of Atrial fib/flutter?: No Statins at discharge?: Yes Primary Dx Acute Ischemic CVA?: Yes IV tPA ordered during stay?: No Reason IV t-PA not ordered: Treatment not Indicated Discharge Plan Admission Admit Date/Time: 03/20/21 18:40 Attending Provider: Shalini Stanley Primary Care Provider: Kristie Magdaleno Discharge Orders/Prescriptions Prescriptions: No Action atorvastatin 40 mg Tablet 40 mg PO DAILY RF: 0 pantoprazole 40 mg Tablet,Delayed Release (Dr/Ec) 40 mg PO DAILY RF: 0 lisinopril 10 mg Tablet 10 mg PO DAILY RF: 0 montelukast 10 mg Tablet 10 mg PO DAILY RF: 0 metoprolol succinate 25 mg Capsule,Sprinkle,Er 24hr 25 mg PO DAILY RF: 0 methocarbamol 750 mg Tablet 750 mg PO Q8H RF: 0 nicotine 21 mg/24 hr Patch 24 Hour 1 patch TRANSDERMAL DAILY RF: 0 aspirin 81 mg Tablet 81 mg PO DAILY RF: 0 Referrals / Follow Up: Kristie Magdaleno MD [Primary Care Provider] - Disposition Disposition (needs filled in before D/C Order can be placed): Acute Care Hospital Charges/Coding Visit Charges Inpatient E&M: 48503 Disch Hosp
== END 2021-03-28 10:02 | disposition short-term general hospital (02) | DRG 57 ==
PROVIDERS: Admitting Provider Internal Medicine; PCP Family Medicine; Visit Provider Internal Medicine
DX: I69.354 Hemiplegia and hemiparesis following cerebral infarction affecting left non-dominant side (principal); I69.392 Facial weakness following cerebral infarction; I69.328 Other speech and language deficits following cerebral infarction; I25.10 Atherosclerotic heart disease of native coronary artery without angina pectoris; E78.5 Hyperlipidemia, unspecified; K21.9 Gastro-esophageal reflux disease without esophagitis; J45.909 Unspecified asthma, uncomplicated; F17.210 Nicotine dependence, cigarettes, uncomplicated; I10 Essential (primary) hypertension; Z79.899 Other long term (current) drug therapy; Z79.82 Long term (current) use of aspirin
CPT/HCPCS: 36415; 80053; 83735; 84100; 84484; 85027; 92507; 92523; 92610; 93005; 97110; 97112; 97116; 97162; 97166; 97530; 97535; 97802; 99251; 99406; G0463

== ENCOUNTER 2021-03-28 10:42 | Inpatient (IN) | payer BC, SELFPAY ==
[2021-03-28] VITALS (7 sets, daily range): BP systolic 122–129; BP diastolic 81–86; PULSE 66–130; RESP 18; TEMP 36.6; O2SAT 96–98; BMI 28.5
--- NOTE | 2021-03-28 10:31 | PCS.PANDOC ---
PANDEMIC DOCUMENTATION INITIATED: Date: 12/15/2020 Time: 190
--- NOTE | 2021-03-28 10:37 | HP.PCM.HOS_ITS ---
HPI - General General Date of Admission: 03/28/21 Date of Service: 03/28/21 Chief Complaint: Chest pain HPI Narrative The patient is a 46 y/o M w/ PMHx: Tobacco use, Asthma, GERD, HTN, HLD, CAD s/p PCI RCA, LAD ~ 2 years prior, recent 03/15/21 onset L sided hemiplegia with CT head with dense MCA sign with edematous temporal lobe felt not a TPA candidate with a CTA demonstrating an occluded M1 segment on the right transferred to [facility] for possible endovascular intervention at that time then transitioned post acute CVA care to acute rehab on 03/19/21 with ongoing therapies and evaluation for postacute care with onset on 03/28/2021 midsternal chest discomfort specifically occurring while he was actively working with physical and occupational therapy, described as a pressure, rated initially 7 out of 10 in severity with associated diaphoresis, dyspnea, dry mouth rating to the right upper extremity with right upper extremity paresthesias associated prompting acute care response with EKG obtained with no acute evidence of ischemia. Patient during evaluation did eventually improve with chest discomfort rated 2-3 out of 10. Given patient current history and prior CAD with PCI transition to PCU for evaluation. Discussed case with rehab physician Dr. Stanley. Patient was administered sublingual nitro and acute rehab prior to transition. [facility] Medical History (Updated 03/28/21 @ 10:[address] Layla Parekh MD) Asthma History of CVA (cerebrovascular accident) HTN (hypertension) Migraine Renal cyst Home Medications atorvastatin 40 mg PO DAILY 03/15/21 [History Last Taken Unknown] lisinopril 10 mg PO DAILY 03/15/21 [History Last Taken Unknown] metoprolol succinate 25 mg PO DAILY 03/15/21 [History Last Taken Unknown] montelukast 10 mg PO DAILY 03/15/21 [History Last Taken Unknown] pantoprazole 40 mg PO DAILY 03/15/21 [History Last Taken Unknown] aspirin 81 mg PO DAILY 03/20/21 [History Last Taken Unknown] methocarbamol 750 mg PO Q8H 03/20/21 [History Last Taken Unknown] nicotine 1 patch TRANSDERMAL DAILY 03/20/21 [History Last Taken Unknown] Allergy/AdvReac Type Severity Reaction Status Date / Time bee venom protein (honey bee) Allergy NEEDS Verified 03/15/21 08:18 FOLLOW-UP Family History (Updated 03/28/21 @ 10:[address] Layla Parekh MD) Uncle CAD (coronary artery disease) Father Aneurysm Hypertension Mother Hypertension Other Myocardial infarction Surgical History (Updated 03/21/21 @ 19:[address] Shalini Stanley DO) History of cholecystectomy History of cosmetic plastic surgery History of intravascular stent placement Social History (Updated 03/21/21 @ 19:[address] 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 HEENT: Eyes: No visual loss, blurred vision, double vision or yellow sclerae. Ears, Nose, Throat: No hearing loss, sneezing, congestion, runny nose or sore throat. SKIN: No rash or itching, lesions, wounds. CARDIOVASCULAR: + Chest pressure, No palpitations, edema, orthopnea, syncopal events. RESPIRATORY: + Shortness of breath, No cough or sputum, wheezing, hemoptysis. GASTROINTESTINAL: No anorexia, nausea, vomiting or diarrhea, abdominal pain, melena, BRBPR. GENITOURINARY: No dysuria, frequency, urgency or retention. NEUROLOGICAL: Recent acute CVA w/ L sided hemiplegia, paresthesias RUE with chest pain, No headache, dizziness, syncope, paralysis, ataxia, change in bowel or bladder control, seizure. MUSCULOSKELETAL: + muscle, back pain, joint pain or stiffness. HEMATOLOGIC: No anemia, bleeding or bruising. LYMPHATICS: No enlarged nodes. No history of splenectomy. PSYCHIATRIC: No history of depression or anxiety. ENDOCRINOLOGIC: + reports of sweating, cold or heat intolerance. No polyuria or polydipsia. ALLERGIES: + history of asthma, hives, eczema or rhinitis. Vital Signs Vital Signs Vital Signs: 03/28/21 10:30 Temperature 97.9 F Temperature Source Oral Pulse Rate 130 H Respiratory Rate 18 Blood Pressure 129/86 H Blood Pressure Mean 100 Blood Pressure Source Monitor Blood Pressure Position Semi-Fowlers Blood Pressure Location Right Arm Pulse Ox 98 Oxygen Delivery Method Room Air Weight Weight: 193 lb 5.526 oz Body Mass Index (BMI) 28.5 Physical Exam Narrative Physical Examination: General: Awake, alert, oriented x 3 and cooperative, seated upright in acute rehab bed, notes chest discomfort is improving, less and down out of 2-3 out of 10. Skin: Normal color, normal turgor, no icterus, no cyanosis. HEENT: AT/NC, EOMI, PERRLA, MMM, no carotid bruits or JVD noted. Lungs: CTA bilaterally, moderate effort, mild decrease BL bases, no rales, ronchi or wheezing. Heart: Regular rate and rhythm; no gallop, rub audible. Abdomen: Soft, overweight, NTTP, ND, normal BS, no obvious evidence of HSM. Extremities: No cyanosis, clubbing, or edema. Neurological: Patient awake, alert, oriented as noted, cognitive function intact; pupils equally reactive to light and accommodation, cranial nerves II- XII grossly normal, moving all 4 extremities however patient does have left- sided hemiplegia, able to lift left upper extremity against gravity, left lower extremity significantly improving, able to ambulate in the room, no deficits to the right side, strength moderately global decreased although more pronounced to the left upper extremity with decreased custom shoemaker strength even. Psychiatric: Affect appears mildly uncomfortable, no acute evidence of depressive or anxiety feelings. Assessment & Plan Assessment/Plan (1) Chest pain: QUALIFIERS: Chest pain type: unspecified Qualified Code(s): R07.9 - Chest pain, unspecified PLAN: The patient is a 46 y/o M w/ PMHx: Tobacco use, Asthma, GERD, HTN, HLD, CAD s/p PCI RCA, LAD ~ 2 years prior, recent 03/15/21 onset L sided hemiplegia with CT head with dense MCA sign with edematous temporal lobe felt not a TPA candidate with a CTA demonstrating an occluded M1 segment on the right transferred to [facility] for possible endovascular intervention at that time then transitioned post acute CVA care to acute rehab on 03/19/21 with ongoing therapies and evaluation for postacute care with onset while performing physical and occupational therapy on 03/28/2021 midsternal chest discomfort described as a pressure. #1. Chest Pain w/ Acute Unstable Angina: EKG in acute rehab w/ no acute cardiopulmonary findings, CXR requested, initial cardiac enzyme performed in rehab and pending. Will direct admit to PCU, maintain on a monitored bed, continue serial cardiac enzymes and EKGs. Obtain magnesium level upon admission. Given concern for unstable angina will initiate heparin drip. Continue medical management. AM FLP. Cardiology consulted, given patient cardiac history may be more appropriate for cardiac catheterization, will maintain n.p.o. status pending cardiology evaluation. ECHO requested. ASA, NG, morphine. #2. Recent acute right MCA territory infarct involving right Putterman, head of caudate nucleus, internal capsule, insular cortex and anterior right temporal lobe: Patient with left-sided hemiplegia, left lower extremity has been improving, transition from acute rehab as noted, will continue physical and occupational therapies, maintained on aspirin, statin, hypertensive regimen as noted with alterations per #1. #3. CAD: Status post PCI RCA and LAD approximately 2 years prior to current presentation, maintained on aspirin, metoprolol, lisinopril, statin therapy. #4. Hypertension: Continue home regimen including metoprolol, lisinopril, PRN hydralazine. #5. Hyperlipidemia: Continue home statin regimen. AM FLP. #6. Tobacco Abuse: Encouraged cessation, inpatient consultation per RT, NR if desired. #7. Chronic asthma with allergic rhinitis: Not on any routine inhalers, will have as needed albuterol, encourage head of bed and I-S usage if appropriate, continue patient montelukast regimen. #8. GERD: We will continue patient home PPI. #9. DVT prophylaxis: SCDs, maintain on heparin drip given current presentation. Charges/Coding Visit Charges OBSV E&M: 91616 Initial observation care L3
--- NOTE | 2021-03-28 10:40 | EKG12_ITS ---
Test Reason : Blood Pressure : / mmHG Vent. Rate : 083 BPM Atrial Rate : 083 BPM P-R Int : 142 ms QRS Dur : 088 ms QT Int : 364 ms P-R-T Axes : 055 018 014 degrees QTc Int : 427 ms Normal sinus rhythm Low voltage QRS Borderline ECG When compared with ECG of 15-MAR-2021 08:47, No significant change was found Confirmed by CORNELIA LILLY, LORENA ([id number]), editorial manager GUSTAVO AUSTIN ([id number]) on 03/31/2021 9:23:08 AM Referred By: DIRK Confirmed By:LORENA LOCKE MD
--- NOTE | 2021-03-28 10:50 | ECHOCS_ITS ---
Reason For Study: CAD, CP Procedure This was a 2D Doppler, Color Flow transthoracic echocardiogram. Technically difficult study due to patients condition. Patch/Bandage over parasternal window from recent cardiac device implantation. Contrast injection and bubble study performed. Exam performed portable in patient room. Left Ventricle Normal left ventricle. The estimated ejection fraction is 40-45 %. Right Ventricle Normal right ventricle. Normal systolic function. Atria Normal left atrium. Normal right atrium. Mitral Valve The mitral valve is structurally normal. No prolapse or stenosis seen. Trivial mitral valve insufficiency. Tricuspid Valve Normal tricuspid valve. Trivial tricuspid valve insufficiency. Aortic Valve Normal aortic valve. Pulmonic Valve The pulmonic valve is not well visualized. Great Vessels Normal aortic root. Pericardium/Pleural No pericardial effusion. Medication Diluted definity 3ml given slow IV push to enhance endocardial definition. Performed a rapid injection of agitated mix of 9 cc saline and 1cc air to assess for atrial septal defect. MMode/2D Measurements & Calculations LVIDd: 5.0 cm IVSd: 0.64 cm LA dimension: 3.9 cm LVIDs: 3.4 cm LVPWd: 0.82 cm FS: 32.2 % LAV(MOD-sp4): 30.4 ml LVAd ap4: 37.9 cm2 SV(MOD-sp4): 59.3 ml LVLd ap4: 8.9 cm EDV(MOD-sp4): 130.3 ml EDV(sp4-el): 137.9 ml LVAs ap4: 26.9 cm2 LVLs ap4: 8.2 cm ESV(MOD-sp4): 71.0 ml ESV(sp4-el): 75.4 ml EF(MOD-sp4): 45.5 % EF(sp4-el): 45.3 % SV(sp4-el): 62.5 ml LA A4 area: 14.4 cm2 RA A4 area: 14.2 cm2 Time Measurements MV dec time: 0.23 sec Doppler Measurements & Calculations MV E max valdemar: 61.8 cm/sec Lat Peak E' Valdemar: 9.7 cm/sec Med Peak E' Valdemar: 8.7 cm/sec MV A max valdemar: 79.6 cm/sec E/E' lat: 6.3 E/E' med: 7.1 MV E/A: 0.78 MV V2 max: 75.7 cm/sec MV P1/2t max valdemar: 70.5 cm/sec Ao V2 max: 109.5 cm/sec MV max P.3 mmHg MV P1/2t: 64.7 msec Ao max P.8 mmHg MV V2 mean: 40.4 cm/sec MV mean P.76 mmHg MV dec slope: 319.5 cm/sec2 MV V2 VTI: 22.0 cm MVA(P1/2t): 3.4 cm2 LV V1 max: 99.3 cm/sec PA V2 max: 87.6 cm/sec LV V1 max P.9 mmHg ECHO/Echo Complete W/ Contrast Interpretation Summary The estimated ejection fraction is 40-45 % Apical Hypokinesia No prior echo to compare. Ordering Physician: Layla Parekh Referring Physician: Kristie Magdaleno Performed By: El Petit RCS
[2021-03-28] MEDS: 0.9% Normal Saline 1,000 ML 100 ML IV ×2 (10:58→21:13)
[2021-03-28] MEDS: 0.9% Saline Lock 10 ML Syringe IV ×2 (10:58→15:01)
--- NOTE | 2021-03-28 12:00 | RAD_ITS ---
STUDY: X-RAY CHEST REASON FOR EXAM: Male, 46 years old. Chest pain. TECHNIQUE: Single frontal view of the chest. COMPARISON: 03/15/2021. FINDINGS: The lungs are clear and expanded. There is no demonstrated pleural abnormality. Normal size heart. New loop recorder. Normal mediastinum and vernell. Normal visualized pulmonary arteries. Normal visualized aortic arch and descending thoracic aorta. Normal visualized thoracic spine. Normal visualized ribs, clavicles, and shoulders. There is no demonstrated abnormality of the visualized soft tissue structures of the upper abdomen. RAD/Chest 1 View (Portable) IMPRESSION: No acute abnormality. Electronically Signed: Nicholas Harris MD at 12:39 EST , Service support ,
[2021-03-28 13:14] LABS: Prothrombin Time (Protime)PT. 12.6 SECONDS (11.7-14.9)
[2021-03-28 13:15] LABS: Partial Thromboplast Time 40.1 Seconds (24.1-36.2)
[2021-03-28] MEDS: Methocarbamol 750 MG Tablet PO ×2 (13:21→21:19)
[2021-03-28 13:24] LABS: Absolute Lymphocyte Count 2.69 X10^3/uL (0.83-4.51); Absolute Neutrophil Count 5.6 X10^3/uL (2.0-7.7); Basophil# 0.04 X10^3/uL; Basophil% 0.4 % (0-1); Eosinophils% 2.1 % (0-5); Hematocrit 42.1 % (40-54); Hemoglobin 14.4 g/dL (13.0-16.5); Lymphocyte # 2.69 X10^3/ul (0.83-4.51); Lymphocyte % 28.1 % (19-41); Mean Corp Hgb Conc 34.2 g/dL (32-36); Mean Corpuscular Hgb 32.4 pg (27.0-32.0); Mean Corpuscular Volume 94.6 fL (80-94); Mean Platelet Vol. 9.6 fl (6.2-12.0); Monocyte# 1.03 X10^3/uL; Monocyte% 10.7 % (0-10); NRBC Flagged by Analyzer 0 % (0-5); Neutrophil % 58.4 % (47-70); Platelet Count 384 K/mm3 (150-450); RBC Distribution Width CV 12.6 % (11.6-14.6); RBC Distribution Width SD 43.6 fl (35.1-43.9); Red Blood Count 4.45 M/mm3 (4.6-6.2); White Blood Count 9.6 K/mm3 (4.4-11.0)
[2021-03-28] MEDS: Heparin Injection (Vial) 5,000 UNIT/ML VIAL 6000 UNIT IV (13:31)
[2021-03-28] MEDS: Mag Hydrox/Al Hydrox/Simeth 30 ML UDC PO (13:31)
[2021-03-28] MEDS: HEPARIN/D5w 25,000 UNITS 25,000 UNITS/250 ML IV.SOLN. 12 UNITS IV (13:32)
[2021-03-28 13:44] LABS: Troponin-I HS 660 pg/mL (3.0-78.0)
[2021-03-28 13:55] LABS: Anion Gap 8 (5-15); BUN 21 mg/dL (7-18); BUN/Creat Ratio 17.1 RATIO (10-20); Calcium,Total 9.2 mg/dL (8.5-10.1); Chloride 107 mmol/L (98-107); Creatinine, Serum 1.23 mg/dL (0.70-1.30); EST Glomerular Filtration Rate 67 mL/min (>60); Est Glom Filt Rate - Afr Amer 81 mL/min (>60); Estimated Creatinine Clearance 73.45 ml/min; Glucose 108 mg/dL (74-106); Magnesium 2.4 mg/dL (1.6-2.6); Potassium 4.1 mmol/L (3.5-5.1); Sodium Level 139 mmol/L (136-145)
--- NOTE | 2021-03-28 14:06 | PCM.CONS.C ---
Assessment & Plan Assessment/Plan (1) CAD (coronary artery disease): (2) Acute ischemic right MCA stroke: (3) Chest pain: QUALIFIERS: Chest pain type: unspecified Qualified Code(s): R07.9 - Chest pain, unspecified (4) Acute non-ST elevation myocardial infarction (NSTEMI): PLAN: 46-year-old patient transferred with symptoms of chest pain from the rehab center Patient with history of hypertension, hyperlipidemia, CAD 2 years ago he had a PCI and stent of the LAD and the RCA Patient had a history of tobacco abuse and recently had CVA with left-sided hemiplegia transferred to [facility] and was sent back over to the rehab center here at [facility] Evidently patient was working with the occupational and physical therapy when he started to complain of midsternal chest pain with some diaphoresis or shortness of breath. Cardiac care plan and recommendations; 1. Cardiac examination essentially normal, EKG showed normal sinus with low voltage 2. Patient currently on medical treatment with heparin, beta-itzel, statin, JENNIFER inhibitor and low-dose aspirin 3. The clinical diagnosis is CAD, with non-ST elevation CO we will continue to monitor the cardiac biomarkers. 4. Echocardiogram showed mild to moderate LV systolic dysfunction ejection fraction in the range of 40-45% with the apical hypokinesia 5. We will continue current medical treatment and will evaluate with cardiac catheterization on Tuesday. HPI Consult Data Date of Consult: 03/28/21 HPI Narrative Reason for Consultation: CAD/non-STEMI/CVA with left hemiplegia HPI Narrative: ANNEMARIE HOLLINS, is a 46 M who presents [facility] Medical History (Updated 03/28/21 @ 14:[address] Familia Snider MD) Asthma History of CVA (cerebrovascular accident) HTN (hypertension) Migraine Renal cyst Home Medications atorvastatin 40 mg PO DAILY 03/15/21 [History Last Taken Unknown] lisinopril 10 mg PO DAILY 03/15/21 [History Last Taken Unknown] metoprolol succinate 25 mg PO DAILY 03/15/21 [History Last Taken Unknown] montelukast 10 mg PO DAILY 03/15/21 [History Last Taken Unknown] pantoprazole 40 mg PO DAILY 03/15/21 [History Last Taken Unknown] aspirin 81 mg PO DAILY 03/20/21 [History Last Taken Unknown] methocarbamol 750 mg PO Q8H 03/20/21 [History Last Taken Unknown] nicotine 1 patch TRANSDERMAL DAILY 03/20/21 [History Last Taken Unknown] Allergy/AdvReac Type Severity Reaction Status Date / Time bee venom protein (honey bee) Allergy NEEDS Verified 03/15/21 08:18 FOLLOW-UP Family History (Updated 03/28/21 @ 10:[address] Layla Parekh MD) Uncle CAD (coronary artery disease) Father Aneurysm Hypertension Mother Hypertension Other Myocardial infarction Surgical History (Updated 03/21/21 @ 19:[address] Shalini Stanley DO) History of cholecystectomy History of cosmetic plastic surgery History of intravascular stent placement Social History (Updated 03/21/21 @ 19:[address] 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 Smoking Status: Current every day smoker tobacco type: cigarettes Tobacco: How many years used: 35 how long ago did patient quit smokin week quit status: considering quitting counseling given: provider counseling substance use type: does not use caffeine: Yes Physical Exam Narrative Seen evaluated at bedside along with the nursing staff Symptoms of chest pain resolved Cardiac examination S1-S2 normal, no murmur no systolic or diastolic murmur, no pericardial rub or gallop rhythm Chest examination; clear to auscultation bilaterally Central nervous system examination he had weakness in the left upper and left lower extremities Examination lower extremity no lower extremity edema no clubbing or cyanosis. Risk Stratification Risk Stratification Applicable: Yes Age >/= 65: No >/= 3 CAD Risk Factors (HTN, HLD, DM, family hx of CAD, or current smoker): Yes Aspirin Use in the Past 7 Days: Yes (for 2 years) Severe Angina (>/= episodes in 24 hours): No EKG ST Changes >/= 0.5mm: No Positive Cardiac Marker: Yes (troponin I 660) ALEKSANDR Risk Stratification Score: 3 ALEKSANDR % Risk: 13% Risk Objective Data Vital Signs: Vital Signs Temp Pulse Resp BP Pulse Ox 97.9 F 78 18 129/86 H 98 03/28/21 10:30 03/28/21 11:01 03/28/21 10:30 03/28/21 10:30 03/28/21 10:30 Oxygen Delivery Method Room Air Weight: 193 lb 5.526 oz Body Mass Index (BMI) 28.5 Intake & Output: Intake and Output for Last 24 Hours 03/26/21 03/27/21 03/28/21 23:59 23:59 23:59 Intake Total 0 / 0 Balance 0 / 0 Lab / Micro Data Result Diagrams: 03/28/21 09:55 03/28/21 09:55 Labs: Laboratory Results - last 24 hr 03/28/21 09:55: WBC 9.6, RBC 4.45 L, Hgb 14.4, Hct 42.1, MCV 94.6 H, MCH 32.4 H, MCHC 34.2, RDW Std Deviation 43.6, RDW Coeff of Elbert 12.6, Plt Count 384, MPV 9.6, Immature Gran % (Auto) 0.300, Neut % (Auto) 58.4, Lymph % (Auto) 28.1, Butts % (Auto) 10.7 H, Eos % (Auto) 2.1, Baso % (Auto) 0.4, Absolute Neuts (auto) 5.6, Absolute Lymphs (auto) 2.69, Nucleated RBC % 0 03/28/21 09:55: PT 12.6, INR 1.0, APTT 40.1 H 03/28/21 09:55: Sodium 139, Potassium 4.1, Chloride 107, Carbon Dioxide 24.0, Anion Gap 8, BUN 21 H, Creatinine 1.23, Estim Creat Clear Calc 73.45, Est GFR (MDRD) Af Amer 81, Est GFR (MDRD) Non-Af 67, BUN/Creatinine Ratio 17.1, Glucose 108 H, Calcium 9.2, Magnesium 2.4 03/28/21 09:55: Magnesium Cancelled, Troponin I High Sens Cancelled 03/28/21 12:21: Troponin I High Sens 660 H* Cardiology Labs/Tests 03/28/21 09:55: WBC 9.6, RBC 4.45 L, Hgb 14.4, Hct 42.1, MCV 94.6 H, MCH 32.4 H, MCHC 34.2, Plt Count 384, MPV 9.6, Immature Gran % (Auto) 0.300, Neut % (Auto) 58.4, Lymph % (Auto) 28.1, Butts % (Auto) 10.7 H, Eos % (Auto) 2.1, Baso % (Auto) 0.4, Absolute Neuts (auto) 5.6, Nucleated RBC % 0 03/28/21 09:55: PT 12.6, INR 1.0, APTT 40.1 H 03/28/21 09:55: Sodium 139, Potassium 4.1, Chloride 107, Carbon Dioxide 24.0, Anion Gap 8, BUN 21 H, Creatinine 1.23, Est GFR (MDRD) Af Amer 81, Est GFR (MDRD) Non-Af 67, BUN/Creatinine Ratio 17.1, Glucose 108 H, Calcium 9.2, Magnesium 2.4 03/28/21 09:55: Magnesium Cancelled Rhythm: EKG: ECHO: Stress Test: Cardiac Cath: PCI: CT Surgery: Holter monitor: EPS: PPM: CXR: Chest CT Scan: Radiography Diagnostic Testing: Radiology Impression Echocardiogram 03/28/21 10:50 Interpretation Summary The estimated ejection fraction is 40-45 % Apical Hypokinesia No prior echo to compare. Ordering Physician: Layla Parekh Referring Physician: Kristie Magdaleno Performed By: El Petit RCS Chest X-Ray 03/28/21 12:00 IMPRESSION: No acute abnormality. Electronically Signed: Nicholas Harris MD at 12:39 EST , Service support ,
[2021-03-28] MEDS: Ondansetron 4 MG/2 ML Vial IV (15:01)
[2021-03-28] MEDS: Acetaminophen 325 MG Tablet 650 MG PO (16:52)
[2021-03-28 17:20] LABS: Troponin-I HS 7856 pg/mL (3.0-78.0)
[2021-03-28 20:14] LABS: Partial Thromboplast Time 154.1 Seconds (24.1-36.2)
[2021-03-28] MEDS: Atorvastatin Calcium 40 MG Tablet PO (21:19)
[2021-03-29] VITALS (11 sets, daily range): BP systolic 82–132; BP diastolic 60–87; PULSE 67–86; RESP 16–18; TEMP 36.2–37.8; O2SAT 92–96
[2021-03-29 02:54] LABS: Basophil# 0.03 X10^3/uL; Basophil% 0.3 % (0-1); Eosinophil# 0.13 X10^3/uL; Eosinophils% 1.2 % (0-5); Hematocrit 38.7 % (40-54); Lymphocyte % 17.9 % (19-41); Mean Corp Hgb Conc 33.6 g/dL (32-36); Mean Corpuscular Hgb 31.6 pg (27.0-32.0); Mean Corpuscular Volume 94.2 fL (80-94); Mean Platelet Vol. 9.2 fl (6.2-12.0); Monocyte# 0.97 X10^3/uL; Monocyte% 8.7 % (0-10); NRBC Flagged by Analyzer 0 % (0-5); Neutrophil # 8.01 X10^3/uL (2.7-7.7); Neutrophil % 71.6 % (47-70); Platelet Count 351 K/mm3 (150-450); RBC Distribution Width CV 12.5 % (11.6-14.6); RBC Distribution Width SD 43.5 fl (35.1-43.9); Red Blood Count 4.11 M/mm3 (4.6-6.2); White Blood Count 11.2 K/mm3 (4.4-11.0)
[2021-03-29 03:13] LABS: ALB/GLOB Ratio 0.8 RATIO (0.9-2.4); AST(SGOT) 133 U/L (15-37); Alanine Aminotransfer ALT/SGPT 45 U/L (16-61); Albumin, Serum 2.8 g/dL (3.2-5.0); Alkaline Phosphatase 67 U/L (45-117); Anion Gap 5 (5-15); BUN 18 mg/dL (7-18); BUN/Creat Ratio 15.9 RATIO (10-20); Calcium,Total 8.5 mg/dL (8.5-10.1); Chloride 109 mmol/L (98-107); Cholesterol 117 mg/dL (200); Creatinine, Serum 1.13 mg/dL (0.70-1.30); EST Glomerular Filtration Rate 74 mL/min (>60); Est Glom Filt Rate - Afr Amer 89 mL/min (>60); Estimated Creatinine Clearance 79.95 ml/min; Globulin 3.6 g/dL (2.2-4.2); Glucose 112 mg/dL (74-106); High Density Lipoprotein 33 mg/dL; Potassium 4.3 mmol/L (3.5-5.1); Protein, Total 6.4 g/dL (6.4-8.2); Sodium Level 139 mmol/L (136-145); Triglycerides 112 mg/dL; Very Low Density Lipoprotein 22 mg/dL (5-40)
[2021-03-29] MEDS: Heparin Injection (Vial) 5,000 UNIT/ML VIAL IV ×2 (03:29→16:51)
--- NOTE | 2021-03-29 05:55 | EKG12_ITS ---
Test Reason : AM EKG Blood Pressure : / mmHG Vent. Rate : 069 BPM Atrial Rate : 069 BPM P-R Int : 116 ms QRS Dur : 090 ms QT Int : 372 ms P-R-T Axes : 030 006 049 degrees QTc Int : 398 ms Normal sinus rhythm Low voltage QRS Nonspecific T wave abnormality Abnormal ECG When compared with ECG of 28-MAR-2021 12:01, MANUAL COMPARISON REQUIRED, DATA IS UNCONFIRMED Confirmed by CORNELIA LILLY, LORENA ([id number]), features editor GUSTAVO AUSTIN ([id number]) on 03/31/2021 9:23:58 AM Referred By: DR LAMBERT Confirmed By:LORENA LOCKE MD
[2021-03-29] MEDS: 0.9% Normal Saline 1,000 ML 100 ML IV ×2 (06:05→23:42)
[2021-03-29] MEDS: Methocarbamol 750 MG Tablet PO ×3 (06:05→21:36)
[2021-03-29] MEDS: Montelukast 10 MG Tablet PO (10:02)
[2021-03-29] MEDS: Lisinopril 10 MG Tablet PO (10:03)
[2021-03-29] MEDS: Pantoprazole Sodium 40 MG Tablet PO (10:03)
[2021-03-29] MEDS: Aspirin 81 MG TAB.CHEW PO (10:03)
[2021-03-29] MEDS: Metoprolol(XL)Succ 25 MG Tablet PO (10:09)
[2021-03-29] MEDS: tiZANidine HCl 2 MG Tablet 4 MG PO (10:42)
[2021-03-29] MEDS: HEPARIN/D5w 25,000 UNITS 25,000 UNITS/250 ML IV.SOLN. 10 UNITS IV (10:47)
--- NOTE | 2021-03-29 11:11 | PCM.PN.CARD ---
Subjective Subjective Seen evaluated today no further episode of chest pain still have the weakness on the left side Objective Data Vital Signs: Vital Signs Temp Pulse Resp BP Pulse Ox 97.2 F L 85 18 120/72 95 03/29/21 09:58 03/29/21 10:09 03/29/21 09:58 03/29/21 09:58 03/29/21 09:58 Oxygen Delivery Method Room Air Weight: 199 lb 15.348 oz Body Mass Index (BMI) 28.5 Intake & Output: Intake and Output for Last 24 Hours 03/27/21 03/28/21 03/29/21 23:59 23:59 23:59 Intake Total 1682.6 / 1682.6 1940.10 / 1940.10 Output Total 700 / 700 Balance 1682.6 / 1682.6 1240.10 / 1240.10 Lab / Micro Data Result Diagrams: 03/29/21 02:30 03/29/21 02:30 Labs: Laboratory Results - last 24 hr 03/28/21 09:55: WBC 9.6, RBC 4.45 L, Hgb 14.4, Hct 42.1, MCV 94.6 H, MCH 32.4 H, MCHC 34.2, RDW Std Deviation 43.6, RDW Coeff of Elbert 12.6, Plt Count 384, MPV 9.6, Immature Gran % (Auto) 0.300, Neut % (Auto) 58.4, Lymph % (Auto) 28.1, [place] % (Auto) 10.7 H, Eos % (Auto) 2.1, Baso % (Auto) 0.4, Absolute Neuts (auto) 5.6, Absolute Lymphs (auto) 2.69, Nucleated RBC % 0 03/28/21 09:55: PT 12.6, INR 1.0, APTT 40.1 H 03/28/21 09:55: Sodium 139, Potassium 4.1, Chloride 107, Carbon Dioxide 24.0, Anion Gap 8, BUN 21 H, Creatinine 1.23, Estim Creat Clear Calc 73.45, Est GFR (MDRD) Af Amer 81, Est GFR (MDRD) Non-Af 67, BUN/Creatinine Ratio 17.1, Glucose 108 H, Calcium 9.2, Magnesium 2.4 03/28/21 09:55: Magnesium Cancelled, Troponin I High Sens Cancelled 11/27/21 12:21: Troponin I High Sens 660 H* 03/28/21 16:32: Troponin I High Sens 7856 H* 03/28/21 19:32: APTT 154.1 H* 03/29/21 02:30: WBC 11.2 H, RBC 4.11 L, Hgb 13.0, Hct 38.7 L, MCV 94.2 H, MCH 31.6, MCHC 33.6, RDW Std Deviation 43.5, RDW Coeff of Elbert 12.5, Plt Count 351, MPV 9.2, Immature Gran % (Auto) 0.300, Neut % (Auto) 71.6 H, Lymph % (Auto) 17.9 L, [place] % (Auto) 8.7, Eos % (Auto) 1.2, Baso % (Auto) 0.3, Absolute Neuts (auto) 8.0 H, Absolute Lymphs (auto) 2.00, Nucleated RBC % 0 03/29/21 02:30: Sodium 139, Potassium 4.3, Chloride 109 H, Carbon Dioxide 25.0, Anion Gap 5, BUN 18, Creatinine 1.13, Estim Creat Clear Calc 79.95, Est GFR (MDRD) Af Amer 89, Est GFR (MDRD) Non-Af 74, BUN/Creatinine Ratio 15.9, Glucose 112 H, Calcium 8.5, Total Bilirubin 0.40, AST 133 H, ALT 45, Alkaline Phosphatase 67, Total Protein 6.4, Albumin 2.8 L, Globulin 3.6, Albumin/Globulin Ratio 0.8 L, Triglycerides 112, Cholesterol 117, LDL Cholesterol 62, VLDL Cholesterol 22, HDL Cholesterol 33 L 03/29/21 02:30: APTT 49.0 H 03/29/21 09:17: APTT 65.0 H Cardiology Labs/Tests 03/28/21 09:55: WBC 9.6, RBC 4.45 L, Hgb 14.4, Hct 42.1, MCV 94.6 H, MCH 32.4 H, MCHC 34.2, Plt Count 384, MPV 9.6, Immature Gran % (Auto) 0.300, Neut % (Auto) 58.4, Lymph % (Auto) 28.1, [place] % (Auto) 10.7 H, Eos % (Auto) 2.1, Baso % (Auto) 0.4, Absolute Neuts (auto) 5.6, Nucleated RBC % 0 03/28/21 09:55: PT 12.6, INR 1.0, APTT 40.1 H 03/28/21 09:55: Sodium 139, Potassium 4.1, Chloride 107, Carbon Dioxide 24.0, Anion Gap 8, BUN 21 H, Creatinine 1.23, Est GFR (MDRD) Af Amer 81, Est GFR (MDRD) Non-Af 67, BUN/Creatinine Ratio 17.1, Glucose 108 H, Calcium 9.2, Magnesium 2.4 03/28/21 09:55: Magnesium Cancelled 03/28/21 19:32: APTT 154.1 H* 03/29/21 02:30: WBC 11.2 H, RBC 4.11 L, Hgb 13.0, Hct 38.7 L, MCV 94.2 H, MCH 31.6, MCHC 33.6, Plt Count 351, MPV 9.2, Immature Gran % (Auto) 0.300, Neut % (Auto) 71.6 H, Lymph % (Auto) 17.9 L, [place] % (Auto) 8.7, Eos % (Auto) 1.2, Baso % (Auto) 0.3, Absolute Neuts (auto) 8.0 H, Nucleated RBC % 0 03/29/21 02:30: Sodium 139, Potassium 4.3, Chloride 109 H, Carbon Dioxide 25.0, Anion Gap 5, BUN 18, Creatinine 1.13, Est GFR (MDRD) Af Amer 89, Est GFR (MDRD) Non-Af 74, BUN/Creatinine Ratio 15.9, Glucose 112 H, Calcium 8.5, Total Bilirubin 0.40, Triglycerides 112, Cholesterol 117, LDL Cholesterol 62, VLDL Cholesterol 22, HDL Cholesterol 33 L 03/29/21 02:30: APTT 49.0 H 03/29/21 09:17: APTT 65.0 H Rhythm: Normal sinus rhythm EKG: Normal sinus, low voltage with nonspecific T wave abnormalities. Radiography Diagnostic Testing: Radiology Impression Echocardiogram 03/28/21 10:50 Interpretation Summary The estimated ejection fraction is 40-45 % Apical Hypokinesia No prior echo to compare. Ordering Physician: Layla Parekh Referring Physician: Kristie Magdaleno Performed By: El Petit RCS Chest X-Ray 03/28/21 12:00 IMPRESSION: No acute abnormality. Electronically Signed: Nicholas Harris MD at 12:39 EST , Service support , Physical Exam Narrative Alert orientated x3 Not in acute distress No symptoms of active chest pain Cardiovascular exam; S1-S2 regular, there is no murmur no systolic or diastolic murmur No pericardial rub or gallop Chest examination clear to auscultation bilateral. Examination for lower extremity no clubbing no cyanosis no lower extremity edema Central nervous system exam patient had left-sided weakness Assessment & Plan Assessment/Plan (1) Left-sided weakness: (2) GERD (gastroesophageal reflux disease): (3) Tobacco dependence: (4) CAD (coronary artery disease): (5) Acute ischemic right MCA stroke: (6) Acute non-ST elevation myocardial infarction (NSTEMI): PLAN: This 46-year-old patient with known history of CAD 2 years ago he had a PCI and stent of LAD/RCA And had recent right middle cerebral artery ischemic stroke affecting his left side with left-sided weakness/hemiplegia improving Evidently patient was in the rehab unit here at [facility] when he started to develop symptoms of retrosternal chest pain with shortness of breath and brought over to the PCU for monitoring subsequent evaluation with the cardiac biomarker and echocardiogram clearly demonstrate evidence of significant elevation of high sensitive troponins with a clinical diagnosis of non-ST elevation myocardial infarction. Cardiac care plan and recommendations; 1. Patient remained stable clinically he had no active chest pain, review of the cardiac telemetry revealed normal sinus rhythm 2. We will continue the current medical treatment 3. Patient had abnormal echocardiogram with apical hypokinesia with ejection fraction in the range of 40-45% Will proceed with cardiac catheterization to assess for patency of the coronary artery stents as well to evaluate for progression of CAD. Risk and benefit of the procedure explained in detail to the patient elected to proceed and informed consent obtained.
--- NOTE | 2021-03-29 11:48 | PN.HOSP_ITS ---
Subjective Subjective Patient with no acute events overnight per self and per nursing report. Patient states he has had resolution of his chest discomfort. Discussed his enzyme trending with plan cardiac catheterization Tuesday to which patient is amenable. Patient does report that he is at had onset of a migraine and suffers from these chronically with significant tension in the neck and aura especially with vision. Discussed that unfortunately given his current status we need to avoid any aggressive NSAID therapy. Discussed options and at this point he is willing to try some tizanidine especially given his stiff neck. Did encourage him when he follows up with neurology to discuss his chronic migraines as from his description he needs to be on something chronically. Patient denies fevers, chills, nausea, emesis, abdominal pain, chest pain or dyspnea. Objective Data Objective Data Vital Signs: Vital Signs Temp Pulse Resp BP Pulse Ox 97.2 F L 85 18 120/72 95 03/29/21 09:58 03/29/21 10:09 03/29/21 09:58 03/29/21 09:58 03/29/21 11:19 Oxygen Delivery Method Room Air Weight: 199 lb 15.348 oz Body Mass Index (BMI) 28.5 Intake & Output: Intake and Output for Last 24 Hours 03/27/21 03/28/21 03/29/21 23:59 23:59 23:59 Intake Total 1682.6 / 1682.6 1940.10 / 1940.10 Output Total 700 / 700 Balance 1682.6 / 1682.6 1240.10 / 1240.10 Lab / Micro Data Result Diagrams: 03/29/21 02:30 03/29/21 02:30 Labs: Laboratory Results - last 24 hr 03/28/21 09:55: WBC 9.6, RBC 4.45 L, Hgb 14.4, Hct 42.1, MCV 94.6 H, MCH 32.4 H, MCHC 34.2, RDW Std Deviation 43.6, RDW Coeff of Elbert 12.6, Plt Count 384, MPV 9.6, Immature Gran % (Auto) 0.300, Neut % (Auto) 58.4, Lymph % (Auto) 28.1, [place] % (Auto) 10.7 H, Eos % (Auto) 2.1, Baso % (Auto) 0.4, Absolute Neuts (auto) 5.6, Absolute Lymphs (auto) 2.69, Nucleated RBC % 0 03/28/21 09:55: PT 12.6, INR 1.0, APTT 40.1 H 03/28/21 09:55: Sodium 139, Potassium 4.1, Chloride 107, Carbon Dioxide 24.0, Anion Gap 8, BUN 21 H, Creatinine 1.23, Estim Creat Clear Calc 73.45, Est GFR (MDRD) Af Amer 81, Est GFR (MDRD) Non-Af 67, BUN/Creatinine Ratio 17.1, Glucose 108 H, Calcium 9.2, Magnesium 2.4 03/28/21 09:55: Magnesium Cancelled, Troponin I High Sens Cancelled 03/28/21 12:21: Troponin I High Sens 660 H* 03/28/21 16:32: Troponin I High Sens 7856 H* 03/28/21 19:32: APTT 154.1 H* 03/29/21 02:30: WBC 11.2 H, RBC 4.11 L, Hgb 13.0, Hct 38.7 L, MCV 94.2 H, MCH 31.6, MCHC 33.6, RDW Std Deviation 43.5, RDW Coeff of Elbert 12.5, Plt Count 351, MPV 9.2, Immature Gran % (Auto) 0.300, Neut % (Auto) 71.6 H, Lymph % (Auto) 17.9 L, [place] % (Auto) 8.7, Eos % (Auto) 1.2, Baso % (Auto) 0.3, Absolute Neuts (auto) 8.0 H, Absolute Lymphs (auto) 2.00, Nucleated RBC % 0 03/29/21 02:30: Sodium 139, Potassium 4.3, Chloride 109 H, Carbon Dioxide 25.0, Anion Gap 5, BUN 18, Creatinine 1.13, Estim Creat Clear Calc 79.95, Est GFR (MDRD) Af Amer 89, Est GFR (MDRD) Non-Af 74, BUN/Creatinine Ratio 15.9, Glucose 112 H, Calcium 8.5, Total Bilirubin 0.40, AST 133 H, ALT 45, Alkaline Ph osphatase 67, Total Protein 6.4, Albumin 2.8 L, Globulin 3.6, Albumin/Globulin Ratio 0.8 L, Triglycerides 112, Cholesterol 117, LDL Cholesterol 62, VLDL C holesterol 22, HDL Cholesterol 33 L 03/29/21 02:30: APTT 49.0 H 03/29/21 09:17: APTT 65.0 H 03/29/21 09:17: Troponin I High Sens 06251 H* Radiography Diagnostic Testing: Radiology Impression Echocardiogram 03/28/21 10:50 Interpretation Summary The estimated ejection fraction is 40-45 % Apical Hypokinesia No prior echo to compare. Ordering Physician: Layla Parekh Referring Physician: Kristie Magdaleno Performed By: El Petit RCS Chest X-Ray 03/28/21 12:00 IMPRESSION: No acute abnormality. Electronically Signed: Nicholas Harris MD at 12:39 EST , Service support , Physical Exam Narrative Physical Examination: General: Awake, alert, oriented x 3 and cooperative, seated upright in the PCU bedside chair, no further chest pain. Does report a migraine currently but watching TV and does not appear in marked discomfort. Skin: Normal color, normal turgor, no icterus, no cyanosis. HEENT: AT/NC, EOMI, PERRLA, MMM. Lungs: CTA bilaterally, moderate effort, mild decrease BL bases, no rales, ronchi or wheezing. Heart: Regular rate and rhythm; no gallop, rub audible. Abdomen: Soft, overweight, NTTP, ND, normal BS. Extremities: No cyanosis, clubbing, or edema. Neurological: Patient awake, alert, oriented as noted, cognitive function intact; pupils equally reactive to light and accommodation, cranial nerves II-XII grossly normal, moving all 4 extremities however patient does have left- sided hemiplegia, able to lift left upper extremity against gravity, left lower extremity significantly improving, able to ambulate in the room, no deficits to the right side, strength moderately global decreased although more pronounced to the left upper extremity with decreased doctor of naprapathic medicine strength even. Psychiatric: Affect appears appropriate, no obvious distress or discomfort despite headache complaint, no acute evidence of depressive or anxiety feelings. Assessment & Plan Assessment/Plan (1) Chest pain: QUALIFIERS: Chest pain type: unspecified Qualified Code(s): R07.9 - Chest pain, unspecified PLAN: The patient is a 46 y/o M w/ PMHx: Tobacco use, Asthma, GERD, HTN, HLD, CAD s/p PCI RCA, LAD ~ 2 years prior, recent 03/15/21 onset L sided hemiplegia with CT head with dense MCA sign with edematous temporal lobe felt not a TPA candidate with a CTA demonstrating an occluded M1 segment on the right transferred to [facility] for possible endovascular intervention at that time then transitioned post acute CVA care to acute rehab on 03/19/21 with ongoing therapies and evaluation for postacute care with onset while performing physical and occupational therapy on 03/28/2021 midsternal chest discomfort described as a pressure. #1. Chest Pain w/ Acute NSTEMI: EKG in acute rehab w/ no acute cardiopulmonary findings, CXR requested, initial cardiac enzyme performed in rehab and pending. Patient was a direct admitted to PCU, maintained on monitor, given concern for unstable angina which eventually presented to self to be an acute NSTEMI patient had been immediately initiated on heparin therapy, serial cardiac enzymes with initial 18-> 660-> 7856-> 26152. Magnesium 2.4. FLP with TG 112, total cholesterol 117, LDL 62, VLDL 22, HDL 33. Echocardiogram requested. Continue medical therapy with aspirin, statin, metoprolol, lisinopril regimen. Cardiology consulted with planned 03/30/2021 cardiac catheterization. Will maintain n.p.o. status after midnight, reinstitute judicious hydration at midnight given planned catheterization. ASA, NG, morphine. #2. Recent acute right MCA territory infarct involving right [place], head of caudate nucleus, internal capsule, insular cortex and anterior right temporal lobe: Patient with left-sided hemiplegia, left lower extremity has been improving, transition from acute rehab as noted, will continue physical and occupational therapies, maintained on aspirin, statin, hypertensive regimen as noted with alterations per #1. #3. Chronic migraines: Given presentation #1 with recent #2 there is some limitation on what patient may be administered. Given some concern about associated neck strain will administer and have as needed tizanidine. We will hold on any Decadron or Toradol at this time. Will initiate Depacon as well as Neurontin given significant patient complaints. We will hold on any Imitrex concept especially given recent stroke. Did encourage patient to follow-up with neurology for his stroke and at that time also discussed that he is been having chronic migraines for many years. #3. CAD: Status post PCI RCA and LAD approximately 2 years prior to current presentation, maintained on aspirin, metoprolol, lisinopril, statin therapy. #4. Hypertension: Continue home regimen including metoprolol, lisinopril, PRN hydralazine. #5. Hyperlipidemia: Continue home statin regimen. AM FLP with TG 112, total cholesterol 117, LDL 62, VLDL 22, HDL 33. #6. Tobacco Abuse: Encouraged cessation, inpatient consultation per RT, NR if desired. #7. Chronic asthma with allergic rhinitis: Not on any routine inhalers, will have as needed albuterol, encourage head of bed and I-S usage if appropriate, continue patient montelukast regimen. #8. GERD: We will continue patient home PPI. #9. DVT prophylaxis: SCDs, maintain on heparin drip given current presentation. Charges/Coding Visit Charges Inpatient E&M: 27494 Subs Hosp L3
[2021-03-29 12:17] LABS: Troponin-I HS 20092 pg/mL (3.0-78.0)
[2021-03-29] MEDS: Gabapentin 100 MG Capsule PO ×2 (13:45→17:04)
[2021-03-29 14:05] LABS: Troponin-I HS 17228 pg/mL (3.0-78.0)
[2021-03-29] MEDS: 0.9% Saline Lock 10 ML Syringe IV (14:22)
[2021-03-29 16:44] LABS: Partial Thromboplast Time 52.3 Seconds (24.1-36.2)
[2021-03-29 17:57] LABS: Troponin-I HS 14905 pg/mL (3.0-78.0)
[2021-03-29] MEDS: Atorvastatin Calcium 40 MG Tablet PO (21:34)
[2021-03-29 22:27] LABS: Absolute Lymphocyte Count 2.85 X10^3/uL (0.83-4.51); Absolute Neutrophil Count 5.8 X10^3/uL (2.0-7.7); Basophil# 0.03 X10^3/uL; Basophil% 0.3 % (0-1); Eosinophil# 0.14 X10^3/uL; Eosinophils% 1.4 % (0-5); Hematocrit 38.6 % (40-54); Hemoglobin 13.1 g/dL (13.0-16.5); Lymphocyte # 2.85 X10^3/ul (0.83-4.51); Lymphocyte % 29.4 % (19-41); Mean Corp Hgb Conc 33.9 g/dL (32-36); Mean Corpuscular Hgb 32.2 pg (27.0-32.0); Mean Corpuscular Volume 94.8 fL (80-94); Mean Platelet Vol. 9.1 fl (6.2-12.0); Monocyte% 9.3 % (0-10); NRBC Flagged by Analyzer 0 % (0-5); Neutrophil # 5.75 X10^3/uL (2.7-7.7); Neutrophil % 59.2 % (47-70); Platelet Count 336 K/mm3 (150-450); RBC Distribution Width CV 12.7 % (11.6-14.6); RBC Distribution Width SD 44.2 fl (35.1-43.9); Red Blood Count 4.07 M/mm3 (4.6-6.2); White Blood Count 9.7 K/mm3 (4.4-11.0)
[2021-03-29] MEDS: 0.9% Normal Saline 1,000 ML 999 ML IV (22:27)
[2021-03-29] MEDS: Acetaminophen 325 MG Tablet 650 MG PO (22:29)
[2021-03-29 22:38] LABS: Bacteria 0 SEEN /hpf (None Seen); Mucous, Urine 0 SEEN /hpf (<or=2+); Red Blood Cells-Urine 0 SEEN /hpf (0-5); Squamous Epithelial Cells - UA 0 SEEN /hpf (0-5); White Blood Cells 0 SEEN /hpf (0-5)
[2021-03-29 22:45] LABS: BUN 15 mg/dL (7-18); Creatinine, Serum 1.14 mg/dL (0.70-1.30); EST Glomerular Filtration Rate 73 mL/min (>60); Estimated Creatinine Clearance 79.24 ml/min; Glucose 102 mg/dL (74-106)
[2021-03-29 22:46] LABS: Color, Urine Yellow (Yellow); Glucose, Dipstick Normal (Normal); Ketone-Dipstick 5 mg/dl (Negative); Leukocyte Esterase-Dipstick Negative /ul (Negative); Nitrite-Dipstick Negative (Negative); Occult Blood-Urine Negative /ul (Negative); Protein-Dipstick Negative (Negative); Specific Gravity, Urine 1.015 (1.002-1.030); Urine Bilirubin Dipstick Negative (Negative); Urine Clarity Clear (Clear); Urine Urobilinogen Normal (Normal); Urine pH 6.5 (5.0 - 8.0)
[2021-03-29 22:46] LABS: Anion Gap 5 (5-15); BUN/Creat Ratio 13.2 RATIO (10-20); Calcium,Total 8.9 mg/dL (8.5-10.1); Chloride 105 mmol/L (98-107); Est Glom Filt Rate - Afr Amer 88 mL/min (>60); Potassium 4.7 mmol/L (3.5-5.1); Sodium Level 137 mmol/L (136-145)
[2021-03-29 23:01] LABS: Lactic Acid 1.1 mmol/L (0.4-1.9)
[2021-03-30] VITALS (17 sets, daily range): BP systolic 91–158; BP diastolic 62–97; PULSE 65–90; RESP 16–18; TEMP 36.5–37.1; O2SAT 93–100
[2021-03-30 05:28] LABS: Absolute Lymphocyte Count 2.66 X10^3/uL (0.83-4.51); Absolute Neutrophil Count 4.8 X10^3/uL (2.0-7.7); Basophil# 0.04 X10^3/uL; Basophil% 0.5 % (0-1); Eosinophils% 2.3 % (0-5); Hematocrit 36.4 % (40-54); Hemoglobin 12.6 g/dL (13.0-16.5); Lymphocyte # 2.66 X10^3/ul (0.83-4.51); Mean Corp Hgb Conc 34.6 g/dL (32-36); Mean Corpuscular Hgb 32.9 pg (27.0-32.0); Monocyte# 0.86 X10^3/uL; NRBC Flagged by Analyzer 0 % (0-5); Neutrophil # 4.78 X10^3/uL (2.7-7.7); Neutrophil % 55.8 % (47-70); Platelet Count 303 K/mm3 (150-450); RBC Distribution Width CV 12.7 % (11.6-14.6); RBC Distribution Width SD 44.3 fl (35.1-43.9); Red Blood Count 3.83 M/mm3 (4.6-6.2); White Blood Count 8.6 K/mm3 (4.4-11.0)
[2021-03-30] MEDS: Aspirin 81 MG TAB.CHEW PO (05:40)
[2021-03-30] MEDS: Methocarbamol 750 MG Tablet PO ×3 (05:40→20:54)
[2021-03-30 05:45] LABS: ALB/GLOB Ratio 0.7 RATIO (0.9-2.4); AST(SGOT) 62 U/L (15-37); Alanine Aminotransfer ALT/SGPT 37 U/L (16-61); Albumin, Serum 2.6 g/dL (3.2-5.0); Alkaline Phosphatase 63 U/L (45-117); Anion Gap 5 (5-15); BUN 16 mg/dL (7-18); BUN/Creat Ratio 13.9 RATIO (10-20); Calcium,Total 8.5 mg/dL (8.5-10.1); Chloride 107 mmol/L (98-107); Creatinine, Serum 1.15 mg/dL (0.70-1.30); EST Glomerular Filtration Rate 72 mL/min (>60); Est Glom Filt Rate - Afr Amer 87 mL/min (>60); Estimated Creatinine Clearance 78.56 ml/min; Globulin 3.6 g/dL (2.2-4.2); Glucose 92 mg/dL (74-106); Potassium 4.6 mmol/L (3.5-5.1); Protein, Total 6.2 g/dL (6.4-8.2); Sodium Level 137 mmol/L (136-145)
[2021-03-30 05:46] LABS: Partial Thromboplast Time 52.3 Seconds (24.1-36.2)
[2021-03-30 05:54] LABS: International Normalized Ratio 1.1; Prothrombin Time (Protime)PT. 13.2 SECONDS (11.7-14.9)
--- NOTE | 2021-03-30 05:55 | EKG12_ITS ---
Test Reason : AM EKG Blood Pressure : / mmHG Vent. Rate : 072 BPM Atrial Rate : 072 BPM P-R Int : 136 ms QRS Dur : 090 ms QT Int : 442 ms P-R-T Axes : 043 016 101 degrees QTc Int : 483 ms Normal sinus rhythm Low voltage QRS T wave abnormality, consider anterolateral ischemia Prolonged QT Abnormal ECG When compared with ECG of 29-MAR-2021 05:52, MANUAL COMPARISON REQUIRED, DATA IS UNCONFIRMED Confirmed by CORNELIA LILLY, LORENA ([id number]), editorial project manager GUSTAVO AUSTIN ([id number]) on 03/31/2021 9:23:26 AM Referred By: DR LAMBERT Confirmed By:LORENA LOCKE MD
--- NOTE | 2021-03-30 06:36 | PN.HOSP_ITS ---
Subjective Subjective Patient overnight with low-grade temperature of T1 100 with no specific complaints associated with unremarkable urinalysis with urine culture pending, chest x-ray with no acute cardiopulmonary findings, blood culture x2 pending and a Covid negative test. He since then has remained completely afebrile. He denies any further chest discomfort. Patient does report that he is migraine free which is the first time and may be months to years. AM EKG with now ST depressions, change from prior, cardiology aware. Patient denies fevers, chills, nausea, emesis, abdominal pain, chest pain or dyspnea. Objective Data Objective Data Vital Signs: Vital Signs Temp Pulse Resp BP Pulse Ox 98.5 F 74 16 91/67 94 03/30/21 04:38 03/30/21 04:38 03/30/21 04:38 03/30/21 04:38 03/30/21 04:38 Oxygen Delivery Method Room Air Weight: 199 lb 15.348 oz Body Mass Index (BMI) 28.5 Intake & Output: Intake and Output for Last 24 Hours 03/28/21 03/29/21 03/30/21 23:59 23:59 23:59 Intake Total 1682.6 / 1682.6 3978.42 / 4278.42 788.33 / 788.33 Output Total 700 / 1100 1100 / 1100 Balance 1682.6 / 1682.6 3278.42 / 3178.42 -311.67 / -311.67 Lab / Micro Data Result Diagrams: 03/30/21 05:10 03/30/21 05:10 Labs: Laboratory Results - last 24 hr 03/29/21 09:17: APTT 65.0 H 03/29/21 09:17: Troponin I [place] Sens 27711 H* 03/29/21 11:45: Troponin I High Sens 16866 H* 03/29/21 13:23: Troponin I High Sens 08050 H* 03/29/21 16:05: APTT 52.3 H 03/29/21 17:22: Troponin I High Sens 55563 H* 03/29/21 22:13: APTT 58.0 H 03/29/21 22:13: WBC 9.7, RBC 4.07 L, Hgb 13.1, Hct 38.6 L, MCV 94.8 H, MCH 32.2 H, MCHC 33.9, RDW Std Deviation 44.2 H, RDW Coeff of Elbert 12.7, Plt Count 336, MPV 9.1, Immature Gran % (Auto) 0.400, Neut % (Auto) 59.2, Lymph % (Auto) 29.4, [place] % (Auto) 9.3, Eos % (Auto) 1.4, Baso % (Auto) 0.3, Absolute Neuts (auto) 5.8, Absolute Lymphs (auto) 2.85, Nucleated RBC % 0 03/29/21 22:13: Sodium 137, Potassium 4.7, Chloride 105, Carbon Dioxide 27.0, Anion Gap 5, BUN 15, Creatinine 1.14, Estim Creat Clear Calc 79.24, Est GFR (MDRD) Af Amer 88, Est GFR (MDRD) Non-Af 73, BUN/Creatinine Ratio 13.2, Glucose 102, Calcium 8.9 03/29/21 22:13: Lactic Acid 1.1 03/29/21 22:28: Urine Color Yellow, Urine Clarity Clear, Urine pH 6.5, Ur Speci fic [place] 1.015, Urine Protein Negative, Urine Glucose (UA) Normal, Urine Ketones 5 H, Urine Occult Blood Negative, Urine Nitrite Negative, Urine Bilirubin Negative, Urine Urobilinogen Normal, Ur Leukocyte Esterase Negative, Urine RBC 0 SEEN, Urine WBC 0 SEEN, Ur Squamous Epith Cells 0 SEEN, Urine Bacteria 0 SEEN, Urine Mucus 0 SEEN 03/30/21 05:10: WBC 8.6, RBC 3.83 L, Hgb 12.6 L, Hct 36.4 L, MCV 95.0 H, MCH 32.9 H, MCHC 34.6, RDW Std Deviation 44.3 H, RDW Coeff of [place] 12.7, Plt Count 303, MPV 9.0, Immature Gran % (Auto) 0.400, Neut % (Auto) 55.8, Lymph % (Auto) 31.0, [place] % (Auto) 10.0, Eos % (Auto) 2.3, Baso % (Auto) 0.5, Absolute Neuts (auto) 4.8, Absolute Lymphs (auto) 2.66, Nucleated RBC % 0 03/30/21 05:10: PT 13.2, INR 1.1 03/30/21 05:10: Sodium 137, Potassium 4.6, Chloride 107, Carbon Dioxide 25.0, Anion Gap 5, BUN 16, Creatinine 1.15, Estim Creat Clear Calc 78.56, Est GFR (MDRD) Af Amer 87, Est GFR (MDRD) Non-Af 72, BUN/Creatinine Ratio 13.9, Glucose 92, Calcium 8.5, Total Bilirubin 0.50, AST 62 H, ALT 37, Alkaline Phosphatase 63, Total Protein 6.2 L, Albumin 2.6 L, Globulin 3.6, Albumin/Globulin Ratio 0.7 L 03/30/21 05:10: APTT 52.3 H Micro: Microbiology 03/29/21 22:20 Nasal Secretion SARS-CoV-2 Antigen (Rapid) - Final Physical Exam Narrative Physical Examination: General: Awake, alert, oriented x 3 and cooperative, seated upright in the PCU bed, denies any complaints, notes he feels significantly improved and has no migraine, denies any further chest pain. Skin: Normal color, normal turgor, no icterus, no cyanosis. HEENT: AT/NC, EOMI, PERRLA, MMM. Lungs: CTA bilaterally, moderate effort, mild decrease BL bases, no rales, ronchi or wheezing. Heart: Regular rate and rhythm; no gallop, rub audible. Abdomen: Soft, overweight, NTTP, ND, normal BS. Extremities: No cyanosis, clubbing, or edema. 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 Psychiatric: Affect appears appropriate, no obvious distress or discomfort despite headache complaint, no acute evidence of depressive or anxiety feelings. Assessment & Plan Assessment/Plan (1) Chest pain: QUALIFIERS: Chest pain type: unspecified Qualified Code(s): R07.9 - Chest pain, unspecified PLAN: The patient is a 46 y/o M w/ PMHx: Tobacco use, Asthma, GERD, HTN, HLD, CAD s/p PCI RCA, LAD ~ 2 years prior, recent 03/15/21 onset L sided hemiplegia with CT head with dense MCA sign with edematous temporal lobe felt not a TPA candidate with a CTA demonstrating an occluded M1 segment on the right transferred to [facility] for possible endovascular intervention at that time then transitioned post acute CVA care to acute rehab on 03/19/21 with ongoing therapies and evaluation for postacute care with onset while performing physical and occupational therapy on 03/28/2021 midsternal chest discomfort described as a pressure. #1. Chest Pain w/ Acute NSTEMI with mid LAD stent complete occlusion: EKG in acute rehab w/ no acute cardiopulmonary findings, CXR requested, initial cardiac enzyme performed in rehab and pending. Patient was a direct admitted to PCU, maintained on monitor, given concern for unstable angina which eventually prese nted to self to be an acute NSTEMI patient had been immediately initiated on heparin therapy, serial cardiac enzymes with initial 18-> 660-> 7856-> 82173 - >03/29/21 [id number], trending downward. Magnesium 2.4. FLP with TG 112, total cholesterol 117, LDL 62, VLDL 22, HDL 33. Echocardiogram w/ EF 40 to 45% with apical hypokinesis with no prior comparison. Continue medical therapy with aspirin, pending plan addition of Brilinta, statin, metoprolol, lisinopril regimen. Cardiology consulted with 03/30/2021 cardiac catheterization with totally occluded mid left anterior descending artery stent with faint distal filling and moderate disease noted in the circumflex artery with reduced LV systolic function with severe hypokinesis anterior wall and apex as well as inferior apical wall. Immediately upon findings in the cardiac catheterization lab discussion ensued with cardiology given concerns about stenting with usage of addition Brilinta given recent stroke. Did perform a stat neurology consu ltation and discussed patient's case with neurology clearance for start of both aspirin and Brilinta with only recommendation to have a follow-up CT which will be delayed to 03/31/2021 given usage of contrast during cardiac catheterization as obtaining a CT earlier would yield inappropriate results. Of note on discharge patient will need a Brilinta medication assistance card and likely plan at 30 to 60-day transition to Plavix per discussion with cardiology. #2. Recent acute right MCA territory infarct involving right [place], head of caudate nucleus, internal capsule, insular cortex and anterior right temporal lobe: Patient with left-sided hemiplegia, left lower extremity has been impr oving, transition from acute rehab as noted, will continue physical and occupational therapies, maintained on aspirin, statin, hypertensive regimen as noted with alterations per #1. #3. Chronic migraines: Given presentation #1 with recent #2 there is some limitation on what patient may be administered. Given some concern about associated neck strain administered as needed tizanidine with a one-time dose additionally, held on any usage of Decadron or Toradol given recent stroke and acute heart attack as noted #1 and #2, initiated on IV Depacon as well as 3 times daily low-dose gabapentin with significant improvement. 03/30/2021 we will transition to nightly 500 ER Depakote and continue low-dose gabapentin. Will encourage patient again to follow-up with neurology to discuss regimen for chronic migraines if he has any recurrence. #3. CAD: Status post PCI RCA and LAD approximately 2 years prior to current presentation, maintained on aspirin, pending plan addition of Brilinta given n umber 1, metoprolol, lisinopril, statin therapy. #4. Hypertension: Continue home regimen including metoprolol, lisinopril, PRN hydralazine. #5. Hyperlipidemia: Continue home statin regimen. AM FLP with TG 112, total cholesterol 117, LDL 62, VLDL 22, HDL 33. #6. Tobacco Abuse: Encouraged cessation, inpatient consultation per RT, NR if desired. #7. Chronic asthma with allergic rhinitis: Not on any routine inhalers, will have as needed albuterol, encourage head of bed and I-S usage if appropriate, continue patient montelukast regimen. #8. GERD: We will continue patient home PPI. #9. DVT prophylaxis: SCDs, maintain on heparin drip given current presentation with transition to chemoprophylactic regimen given enzymes trending downward per cardiology discretion. Discussed discharge planning with case management/social work and patient is likely not going to be a candidate to return to acute rehab unless insurance is amenable. Charges/Coding Visit Charges Inpatient E&M: 23061 Subs Hosp L3
[2021-03-30] MEDS: 0.9% Normal Saline 1,000 ML 15 ML IV (08:09)
--- NOTE | 2021-03-30 08:44 | CASEMGMT ---
According to the [facility] website, the following are in-network tertiary facilities: [facility], [facility], [facility], [facility], [facility], [facility], [facility], [facility], [facility], and . [facility] CM
--- NOTE | 2021-03-30 09:43 | CASEMGMT ---
UYEN noted patient came from [facility] Inpatient Rehab Unit. SW also noted in therapy's notes patient wants to go home at discharge. SW met with patient and his significant other and patient does want to go home. SW let him know home health can be arranged if he would like. Will continue to follow to see how patient does with therapy. Eleanor Rowe [employer] ARIANA
--- NOTE | 2021-03-30 11:11 | PN.CARD_ITS ---
Subjective Subjective Patient seen and evaluated. Appears to be doing well. Objective Data Vital Signs: Vital Signs Temp Pulse Resp BP Pulse Ox 97.7 F L 76 18 95/70 96 03/30/21 08:05 03/30/21 08:05 03/30/21 08:05 03/30/21 08:05 03/30/21 08:06 Oxygen Delivery Method Room Air Weight: 199 lb 15.348 oz Body Mass Index (BMI) 28.5 Intake & Output: Intake and Output for Last 24 Hours 03/28/21 03/29/21 03/30/21 23:59 23:59 23:59 Intake Total 1682.6 / 1682.6 3978.42 / 4278.42 843.33 / 843.33 Output Total 700 / 1100 1100 / 1100 Balance 1682.6 / 1682.6 3278.42 / 3178.42 -256.67 / -256.67 Lab / Micro Data Result Diagrams: 03/30/21 05:10 03/30/21 05:10 Labs: Laboratory Results - last 24 hr 03/29/21 09:17: Troponin I High Sens 72759 H* 03/29/21 11:45: Troponin I High Sens 48409 H* 03/29/21 13:23: Troponin I High Sens 26577 H* 03/29/21 16:05: APTT 52.3 H 03/29/21 17:22: Troponin I High Sens 32715 H* 03/29/21 22:13: APTT 58.0 H 03/29/21 22:13: WBC 9.7, RBC 4.07 L, Hgb 13.1, Hct 38.6 L, MCV 94.8 H, MCH 32.2 H, MCHC 33.9, RDW Std Deviation 44.2 H, RDW Coeff of Elbert 12.7, Plt Count 336, MPV 9.1, Immature Gran % (Auto) 0.400, Neut % (Auto) 59.2, Lymph % (Auto) 29.4, [place] % (Auto) 9.3, Eos % (Auto) 1.4, Baso % (Auto) 0.3, Absolute Neuts (auto) 5.8, Absolute Lymphs (auto) 2.85, Nucleated RBC % 0 03/29/21 22:13: Sodium 137, Potassium 4.7, Chloride 105, Carbon Dioxide 27.0, Anion Gap 5, BUN 15, Creatinine 1.14, Estim Creat Clear Calc 79.24, Est GFR (MDRD) Af Amer 88, Est GFR (MDRD) Non-Af 73, BUN/Creatinine Ratio 13.2, Glucose 102, Calcium 8.9 03/29/21 22:13: Lactic Acid 1.1 03/29/21 22:28: Urine Color Yellow, Urine Clarity Clear, Urine pH 6.5, Ur Specific [place] 1.015, Urine Protein Negative, Urine Glucose (UA) Normal, Urine Ketones 5 H, Urine Occult Blood Negative, Urine Nitrite Negative, Urine Bilirubin Negative, Urine Urobilinogen Normal, Ur Leukocyte Esterase Negative, Urine RBC 0 SEEN, Urine WBC 0 SEEN, Ur Squamous Epith Cells 0 SEEN, Urine Bacteria 0 SEEN, Urine Mucus 0 SEEN 03/30/21 05:10: WBC 8.6, RBC 3.83 L, Hgb 12.6 L, Hct 36.4 L, MCV 95.0 H, MCH 32.9 H, MCHC 34.6, RDW Std Deviation 44.3 H, RDW Coeff of Elbert 12.7, Plt Count 303, MPV 9.0, Immature Gran % (Auto) 0.400, Neut % (Auto) 55.8, Lymph % (Auto) 31.0, [place] % (Auto) 10.0, Eos % (Auto) 2.3, Baso % (Auto) 0.5, Absolute Neuts (auto) 4.8, Absolute Lymphs (auto) 2.66, Nucleated RBC % 0 03/30/21 05:10: PT 13.2, INR 1.1 03/30/21 05:10: Sodium 137, Potassium 4.6, Chloride 107, Carbon Dioxide 25.0, Anion Gap 5, BUN 16, Creatinine 1.15, Estim Creat Clear Calc 78.56, Est GFR (MDRD) Af Amer 87, Est GFR (MDRD) Non-Af 72, BUN/Creatinine Ratio 13.9, Glucose 92, Calcium 8.5, Total Bilirubin 0.50, AST 62 H, ALT 37, Alkaline Phosphatase 63, Total Protein 6.2 L, Albumin 2.6 L, Globulin 3.6, Albumin/Globulin Ratio 0.7 L 03/30/21 05:10: APTT 52.3 H Micro: Microbiology 03/29/21 22:20 Nasal Secretion SARS-CoV-2 Antigen (Rapid) - Final Cardiology Labs/Tests 03/29/21 16:05: APTT 52.3 H 03/29/21 22:13: APTT 58.0 H 03/29/21 22:13: WBC 9.7, RBC 4.07 L, Hgb 13.1, Hct 38.6 L, MCV 94.8 H, MCH 32.2 H, MCHC 33.9, Plt Count 336, MPV 9.1, Immature Gran % (Auto) 0.400, Neut % (Auto) 59.2, Lymph % (Auto) 29.4, [place] % (Auto) 9.3, Eos % (Auto) 1.4, Baso % (Auto) 0.3, Absolute Neuts (auto) 5.8, Nucleated RBC % 0 03/29/21 22:13: Sodium 137, Potassium 4.7, Chloride 105, Carbon Dioxide 27.0, Anion Gap 5, BUN 15, Creatinine 1.14, Est GFR (MDRD) Af Amer 88, Est GFR (MDRD) Non-Af 73, BUN/Creatinine Ratio 13.2, Glucose 102, Calcium 8.9 03/29/21 22:13: Lactic Acid 1.1 03/29/21 22:28: Urine Color Yellow, Urine Clarity Clear, Urine pH 6.5, Ur Specific [place] 1.015, Urine Protein Negative, Urine Glucose (UA) Normal, Urine Ketones 5 H, Urine Occult Blood Negative, Urine Nitrite Negative, Urine Bilirubin Negative, Urine Urobilinogen Normal, Ur Leukocyte Esterase Negative, Urine RBC 0 SEEN, Urine WBC 0 SEEN 03/30/21 05:10: WBC 8.6, RBC 3.83 L, Hgb 12.6 L, Hct 36.4 L, MCV 95.0 H, MCH 32.9 H, MCHC 34.6, Plt Count 303, MPV 9.0, Immature Gran % (Auto) 0.400, Neut % (Auto) 55.8, Lymph % (Auto) 31.0, [place] % (Auto) 10.0, Eos % (Auto) 2.3, Baso % (Auto) 0.5, Absolute Neuts (auto) 4.8, Nucleated RBC % 0 03/30/21 05:10: PT 13.2, INR 1.1 03/30/21 05:10: Sodium 137, Potassium 4.6, Chloride 107, Carbon Dioxide 25.0, Anion Gap 5, BUN 16, Creatinine 1.15, Est GFR (MDRD) Af Amer 87, Est GFR (MDRD) Non-Af 72, BUN/Creatinine Ratio 13.9, Glucose 92, Calcium 8.5, Total Bilirubin 0.50 03/30/21 05:10: APTT 52.3 H Rhythm: EKG: ECHO: Stress Test: Cardiac Cath: PCI: CT Surgery: Holter monitor: EPS: PPM: CXR: Chest CT Scan: Physical Exam Const alert, oriented x3 and no apparent distress General Appearance: cooperative HEENT hearing grossly normal bilaterally Head and Scalp: atraumatic Eyes EOMs intact bilaterally Neck General: normal visual inspection Chest inspection of chest normal and palpation of chest normal Resp normal respiratory effort Auscultation: clear to auscultation bilaterally Cardio regular rate, regular rhythm, S1 normal heart sound and S2 normal heart sound Jugular Venous Distention: JVD GI normal to inspection, nondistended, normoactive bowel sounds Extremity normal capillary refill and no pedal edema Peripheral Pulses: Yes pulses 2+ throughout and femoral pulses present Skin no rashes or lesions noted Neuro oriented x3 and CN's II-XII intact bilaterally Psych Appearance: grossly normal and appropriate Assessment & Plan Assessment/Plan (1) Acute non-ST elevation myocardial infarction (NSTEMI): PLAN: He is status post non-ST elevation myocardial infarction. He underwent a cardiac catheterization today which demonstrated a total occlusion of the left anterior descending artery stent. It appears that this was likely secondary to discontinuation of the clopidogrel. His other arteries appeared to be free of significant disease. There was 50% stenosis in the circumflex artery and the stent in the right coronary artery was patent. * Based on the above we will proceed with angioplasty and stenting of the left anterior descending artery * Will likely use Brilinta since Integrilin is contraindicated within a month of his last stroke * Continue aspirin (2) Acute ischemic right MCA stroke: PLAN: He is status post acute right MCA stroke with intervention by neurosurgery. We will consult with them about long-term antiplatelet therapy this soon post CVA We will continue to monitor his loop recorder
--- NOTE | 2021-03-30 11:19 | TELEMED_ITS ---
[facility] has confirmed receipt of a request for visit. This document confirms receipt of the order initiating the consult. To find the results of the consultation, please view the patient's reports for the scanned Telemed Consult.
--- NOTE | 2021-03-30 11:23 | CL.D_ITS ---
Patient Name: ANNEMARIE HOLLINS Study Date: 03/30/2021 Performing: Anjum Munoz MD Ht: 68.89 inches 175 cm : 1975 Wt: 200.62 lbs 91 kg Age: 46 Gender: male BSA: 2.07 PROCEDURE(S) PERFORMED [id number]/[id number]/LV [id number] W OR WO PTCA, SINGLE CORONARY ARTERY CLINICAL PROFILE AND INDICATIONS Indications: ACS <= 24 hrs Heart Failure: None Stress/Imaging Stress/Image Study Performed: No CONCLUSIONS Totally occluded mid left anterior descending artery stent with faint distal filling and moderate dis ease noted in the circumflex artery Reduced left ventricular systolic function with severe hypokinesis of the anterior wall and apex and inferior apical wall RECOMMENDATIONS Referred for immediate PCI Discussed with neuro about use of 2 B3 inhibitor and antiplatelet agent DESCRIPTION OF PROCEDURE The patient arrived to the procedure lab. The risks and benefits of the procedure as well as a full d escription of our services here and current unavailability of surgical backup were fully explained to the patient and/or their significant other prior to the catheterization. The Timeout was completed, verifying the correct patient and procedure. The patient's procedural site was prepped and draped in the usual fashion. Local anesthetic was given subcutaneously to right radial region with Lidocaine 2% . Using a modified Seldinger technique, arterial access was obtained via the right radial artery, a 6 Fr sheath was inserted. Right Coronary Artery selective angiography was then performed in multiple v iews using a 5 Fr. 4.0 Austin catheter. Left Coronary Artery selective angiography was performed in mu ltiple views using a 5 Fr. 4.0 [place] catheter. Left Ventriculography was performed in GUERRA projection using a 5 Fr. Pigtail catheter. LV to AO pullback pressures were then recorded. CORONARY ANGIOGRAPHY DOMINANCE: Right Dominant LEFT HEART ASSESSMENT Left Ventricular Ejection Fraction: by LV Gram 40 % Anterior Hypokinesis - Severe. Apical Hypokinesis - Severe Depressed Left Ventricular systolic function LEFT MAIN: Angiographically normal LEFT ANTERIOR DESCENDING ARTERY: MID LAD: is occluded CIRCUMFLEX ARTERY: MID CIRC: 50 % Stenosis RIGHT CORONARY ARTERY: Previously placed stent is patent COMPLICATIONS PROCEDURE MEDICATIONS Fentanyl 50 mcg IV Versed 1 mg IV Versed 1 mg IV Oxygen: 2 L/min via nasal cannula Brilinta 180 mg PO @ 03/30/2021 11:16:46 Heparin given IA 03/30/2021 10:32:21 Heparin 5000 unit(s) IV 03/30/2021 11:16:38 Verapamil 2.5mg, Ntg 100mcgs, 3000 units of Heparin given IA 03/30/2021 10:32:21 SUMMARY OF HEMODYNAMIC DATA Time AIR REST ECG 10:20:54 Art 113/69 (81) 10:38:21 AO 99/73 (87) SA 10:53:09 LV 105/18, 24 11:00:22 LV 101/18, 23 11:00:28 LV 96/22, 27 11:01:42 LVp 92/22, 29 11:01:48 AOp 109/75 (93) 11:01:53 Signed By Anjum Munoz MD On 03/30/2021 11:22:20 AM Anjum Munoz MD
[2021-03-30] MEDS: 0.9% Normal Saline 1,000 ML 100 ML IV ×2 (13:02→23:22)
[2021-03-30] MEDS: Montelukast 10 MG Tablet PO (13:04)
[2021-03-30] MEDS: Gabapentin 100 MG Capsule PO ×2 (13:05→17:55)
--- NOTE | 2021-03-30 13:25 | CASEMGMT ---
MOIZ BRITO Face to Face with patient for initial transition planning/care coordination assessment. MIOZ BRITO introduced self and role at [facility]. Patient lying in bed, alert and oriented. Patient willing to participate in assessment and is able to answer all questions appropriately. Care providers, pharmacy, and demographics verified. Patient wishes to discharge home and is interested in outpatient therapy at discharge, CM to assist with obtaining script from hospitalist. Patient states he has no further needs or concerns at this time. CM to follow for discharge planning needs that may arise. PCP: Sharla Specialists: June breaker mechanic Preferred Pharmacy: [facility] Insurance: [place] Prescription Benefit: yes Living Will/HPOA: none LNOK: significant other Living Arrangements: Patient lives with significant other in a single story home with 5 steps and railing to enter the home. Patient states he was independent at home. Transportation: self, significant other DME/HHC: patient denies DME at home or previous HHC. Patient states he can borrow walker from mother. Patient states he is interested in medical alert button. MOIZ BRITO provided patient with resources for medical alert. Disposition Plan: Patient to discharge home with family support and follow-up plans in place. Jimena FONTANEZ, RN, CM
--- NOTE | 2021-03-30 14:04 | EKG12_ITS ---
Test Reason : AM EKG Blood Pressure : / mmHG Vent. Rate : 088 BPM Atrial Rate : 088 BPM P-R Int : 130 ms QRS Dur : 086 ms QT Int : 380 ms P-R-T Axes : 047 003 112 degrees QTc Int : 459 ms Normal sinus rhythm Low voltage QRS T wave abnormality, consider anterolateral ischemia Abnormal ECG Confirmed by RICK LILLY, KATELYN ([id number]), map editor GUSTAVO AUSTIN ([id number]) on 04/01/2021 8:40:50 AM Referred By: FAUSTO Confirmed By:KATELYN CABRERA MD
--- NOTE | 2021-03-30 14:12 | EKG12_ITS ---
Test Reason : PCI Blood Pressure : / mmHG Vent. Rate : 079 BPM Atrial Rate : 079 BPM P-R Int : 132 ms QRS Dur : 090 ms QT Int : 402 ms P-R-T Axes : 043 010 112 degrees QTc Int : 460 ms Normal sinus rhythm Low voltage QRS T wave abnormality, consider Anterior-lateral ischemia Abnormal ECG Confirmed by RICK LILLY, KATELYN ([id number]), assignment editor GUSTAVO AUSTIN ([id number]) on 04/01/2021 12:45:28 PM Referred By: RICK Confirmed By:KATELYN CABRERA MD
--- NOTE | 2021-03-30 14:37 | CL.I_ITS ---
Patient Name: ANNEMARIE HOLLINS Study Date: 03/30/2021 Performing: Robbi Kuo MD Ht: 69 inches 175 cm : 1975 Wt: 200.9 lbs 91 kg Age: 46 Gender: male BSA: 2.07 PROCEDURE(S) PERFORMED [id number], SINGLE CORONARY ARTERY [id number] MECHANICAL THROMBECTOMY (ANGIOJET) [id number] CLINICAL PROFILE AND CO-MORBIDITIES Indications: ACS <= 24 hrs Heart Failure: None Stress/Imaging Stress/Image Study Performed: No CONCLUSIONS Successful thrombectomy and PTCA to instent thrombosis of mLAD RECOMMENDATIONS DESCRIPTION OF PROCEDURE The patient arrived to the procedure lab. The risks and benefits of the procedure as well as a full d escription of our services here and current unavailability of surgical backup were fully explained to the patient and/or their significant other prior to the catheterization. The Timeout was completed, verifying the correct patient and procedure. The patient's procedural site was prepped and draped in the usual fashion. Local anesthetic was given subcutaneously to right radial region with Lidocaine 2% Using a modified Seldinger technique,arterial access was obtained via the right radial artery, a 6Fr sheath was inserted. Right Coronary Artery selective angiography was then performed in multiple view s using a 5 Fr. 4.0 [place] catheter. Left Coronary Artery selective angiography was performed in multi ple views using a 5 Fr. 4.0 [place] catheter. Left Ventriculography was performed in GUERRA projection usi ng a 5 Fr. Pigtail catheter. LV to AO pullback pressures were then recorded. XB 3.0 Guide catheter was inserted and engaged into the LCA. BMW Guide wire was advanced to the L AD. Priority One inserted into mid LAD Priority One inserted Pass # 1 Priority One inserted Pass # 2 Priority One Removed Angiogram performed post Priority One use. Angiogram performed post Priority One use. Priority One inserted Pass # 3 Priority One Removed 1.5 x 15 Emerge Balloon catheter was advanc ed across lesion in the LAD, mid. PTCA balloon inflated at 14 atms for 25 secs. Angiogram performed p ost balloon dilatation. Angiogram performed post Spiroflex Pass. 1.5 x 15 Emerge Balloon catheter wa s advanced across lesion in the LAD, mid. Angiogram performed post balloon. The arterial sheath was pulled and a TR Band was applied for hemostasis 11c air inserted. INTERVENTION INFORMATION LESION SITE: LAD (Mid) Lesion Complexity: High/C, chronic total occlusion: No, lesion at bifurcation: Yes, thrombus present: Yes, lesion length: 12 mm, culprit lesion: Yes, Previously treated lesion: Yes, Timeframe of previou s treatment: 1-2 years, Previously treated with a stent: Yes Stent Type: with FREDDY, In-stent restenosi s: No, In-stent Thrombosis: Yes Pre Stenosis: 100 % Pre intervention ALEKSANDR flow: 0 PROCEDURE: Thrombectomy, Balloon Angioplasty There was embolization to the distal tip of the LAD with ALEKSANDR 2 flow in this location. [place] was perrformed with the previously inflated 1.5mm balloon. The vessel was very small in this location and not ideal for PTCA or thrombectomy. Integrillin could not be used due to recent CVA Post Stenosis: 0 % Post intervention ALEKSANDR flow: 3 Lesion Devices: Cardinal 6 Fr XB3.0 100cm Guide Catheter Haile .014 BMW [place] Straight 190cm Terumo Priority One Aspiration Catheter Angelo Sci EMERGE MR 1.50x15 BALLOON Medtronic 6 Fr. Amory AP Aspiration Catheter COMPLICATIONS No Complications PROCEDURE MEDICATIONS Fentanyl 50 mcg IV Versed 1 mg IV Versed 1 mg IV Oxygen: 2 L/min via nasal cannula Brilinta 180 mg PO @ 03/30/2021 11:16:46 Heparin given IA 03/30/2021 10:32:21 Heparin 5000 unit(s) IV 03/30/2021 11:16:38 Heparin 1000 unit(s) IV 03/30/2021 11:40:00 Heparin 1000 unit(s) IV 03/30/2021 11:58:39 Nitro 200 mcg IC 03/30/2021 11:56:03 Verapamil 2.5mg, Ntg 100mcgs, 3000 units of Heparin given IA 03/30/2021 10:32:21 SUMMARY OF HEMODYNAMIC DATA Time AIR REST ECG 10:20:54 Art 113/69 (81) 10:38:21 AO 99/73 (87) SA 10:53:09 LV 105/18, 24 11:00:22 LV 101/18, 23 11:00:28 LV 96/22, 27 11:01:42 LVp 92/22, 29 11:01:48 AOp 109/75 (93) 11:01:53 RM AIR REST 11:22:22 Signed By Robbi Kuo MD On 03/30/2021 14:35:41 Robbi Kuo MD
--- NOTE | 2021-03-30 15:25 | CRPHASE1_ITS ---
Patient Communication PHII Cardiac Rehab Discussed with Patient:: Yes Guide to Cardiac Rehab Given to Patient:: Yes Cardiac Rehab Facility Choice List Given to Patient:: Yes Choice Program [facility] PHII:: Communication Given to CR, Refer to [facility] Mixer Diamond Powder:: Amos Kuo Phase II Cardiac Rehab:: Yes Sessions:: 36 sessions - 3 days/wk, 12 weeks Cardiac Rehabilitation Info Cardiac Rehabilitation Program Information: Cardiac Rehabilitation is important for patients like you who are recovering from a heart problem. Cardiac rehabilitation programs are recognized as integral to the continued care of the patient with coronary heart disease. The cardiac rehabilitation program is designed to optimize a patient's physical, psychological, and social functioning. Health post acute care nurse practitioner work in cardiac rehabilitation programs and assist you with getting the treatments you need to get stronger and healthier - like exercise, healthy eating habits, and medications. Cardiac rehabilitation has been show to help people with heart problems live longer and have better life enjoyment than people who do not go to cardiac rehabilitation. Please contact the Cardiac Rehabilitation Program at [facility] at in two weeks if you have not heard from them.
--- NOTE | 2021-03-30 15:25 | CRPH1.INST_ITS ---
General Education CAD and cardiac anatomy and function:: Patient communicates acknowledgment Explanation of diagnoses and procedures:: Patient communicates acknowledgment Sign/Symptoms of SD:: Patient communicates acknowledgment Antiplatelet therapy: Patient communicates acknowledgment Proper use of NTG-SL: Patient communicates acknowledgment Emergency procedures and activation of EMS: Patient communicates acknowledgment Compliance of all prescribed medications: Patient communicates acknowledgment Smoking Patient Nicotine/Smoking Risk Factors Are:: Cigarettes Recommendations Include:: Smoking cessation strategies/Smoking packet, Second- hand smoke recommendation, Participation in a smoking cessation program Nicotine/Smoking Response Code:: Patient communicates acknowledgment Dyslipidemia Patient Dyslipidemia Risk Factors Are:: Total Cholesterol - 117, Triglycerides - 112, HDL - 33, LDL - 62 Recommendations Include:: Lipid profile provided, Reviewed NCEP/ATP guidelines Dyslipidemia Response Code:: Patient communicates acknowledgment Hypertension Recommendations Include:: Maintain BP <130/85, DASH dietary guidelines, Decrease/maintain normal body weight, Moderation of ETOH Hypertension:: Patient communicates acknowledgment Heart Disease Patient Heart Disease Risk Factors Are:: Family history of heart disease < 65 years old, Previous cardiac event - stents in 2019 Recommendations Include:: Educated family members of their risk, Educated family members of importance of prevention of heart disease Heart Disease Response Code:: Patient communicates acknowledgment
[2021-03-30] MEDS: Atorvastatin Calcium 40 MG Tablet PO (20:53)
[2021-03-30] MEDS: TICAGRELOR 90 MG TABLET PO (20:54)
[2021-03-30] MEDS: Divalproex (ER) 500 MG Tablet PO (20:54)
[2021-03-31 00:34] LABS: Partial Thromboplast Time 33.9 Seconds (24.1-36.2)
[2021-03-31] MEDS: HEPARIN/D5w 25,000 UNITS 25,000 UNITS/250 ML IV.SOLN. 11 UNITS IV (00:59)
[2021-03-31] MEDS: Heparin Injection (Vial) 5,000 UNIT/ML VIAL IV (00:59)
[2021-03-31 02:51] VITALS: PULSE 76
[2021-03-31 03:00] VITALS: BP 103/74; PULSE 84; RESP 16; TEMP 37.2; O2SAT 94
--- NOTE | 2021-03-31 06:33 | PCM.PN.HOSP ---
Subjective Subjective CT head pending. Migraine still gone. Objective Data Objective Data Vital Signs: Vital Signs Temp Pulse Resp BP Pulse Ox 98.9 F 84 16 103/74 94 03/31/21 03:00 03/31/21 03:00 03/31/21 03:00 03/31/21 03:00 03/31/21 03:00 Oxygen Delivery Method Room Air Weight: 198 lb 6.656 oz Body Mass Index (BMI) 28.5 Intake & Output: Intake and Output for Last 24 Hours 03/29/21 03/30/21 03/31/21 23:59 23:59 23:59 Intake Total 3978.42 / 4278.42 3452.66 / 3452.66 640 / 640 Output Total 700 / 1100 1725 / 1725 500 / 500 Balance 3278.42 / 3178.42 1727.66 / 1727.66 140 / 140 Lab / Micro Data Result Diagrams: 03/30/21 05:10 03/30/21 05:10 Labs: Laboratory Results - last 24 hr 03/30/21 23:09: APTT 33.9 Micro: Microbiology 03/29/21 22:20 Nasal Secretion SARS-CoV-2 Antigen (Rapid) - Final Physical Exam Narrative Physical Examination: General: Awake, alert, oriented x 3 and cooperative, seated upright in the PCU bed, denies any complaints, notes he feels significantly improved and has no migraine, denies any further chest pain. Skin: Normal color, normal turgor, no icterus, no cyanosis. HEENT: AT/NC, EOMI, PERRLA, MMM. Lungs: CTA bilaterally, moderate effort, mild decrease BL bases, no rales, ronchi or wheezing. Heart: Regular rate and rhythm; no gallop, rub audible. Abdomen: Soft, overweight, NTTP, ND, normal BS. Extremities: No cyanosis, clubbing, or edema. Neurological: Patient awake, alert, oriented as noted, cognitive function intact; pupils equally reactive to light and accommodation, cranial nerves II-XII grossly normal, moving all 4 extremities however patient does have left-sided hemiplegia, able to lift left upper extremity against gravity, left lower extremity significantly improving, able to ambulate in the room, no deficits to the right side, strength moderately global decreased although more pronounced to the left upper extremity with decreased director of instructional technology strength even. Psychiatric: Affect appears appropriate, no obvious distress or discomfort despite headache complaint, no acute evidence of depressive or anxiety feelings. Assessment & Plan Assessment/Plan (1) Chest pain: QUALIFIERS: Chest pain type: unspecified Qualified Code(s): R07.9 - Chest pain, unspecified PLAN: The patient is a 46 y/o M w/ PMHx: Tobacco use, Asthma, GERD, HTN, HLD, CAD s/p PCI RCA, LAD ~ 2 years prior, recent 03/15/21 onset L sided hemiplegia with CT head with dense MCA sign with edematous temporal lobe felt not a TPA candidate with a CTA demonstrating an occluded M1 segment on the right transferred to [facility] for possible endovascular intervention at that time then transitioned post acute CVA care to acute rehab on 03/19/21 with ongoing therapies and evaluation for postacute care with onset while performing physical and occupational therapy on 03/28/2021 midsternal chest discomfort described as a pressure. #1. Chest Pain w/ Acute NSTEMI with mid LAD stent complete occlusion: EKG in acute rehab w/ no acute cardiopulmonary findings, CXR requested, initial cardiac enzyme performed in rehab and pending. Patient was a direct admitted to PCU, maintained on monitor, given concern for unstable angina which eventually presented to self to be an acute NSTEMI patient had been immediately initiated on heparin therapy, serial cardiac enzymes with initial 18-> 660-> 7856-> 55027 ->03/29/21 [id number], trending downward. Magnesium 2.4. FLP with TG 112, total cholesterol 117, LDL 62, VLDL 22, HDL 33. Echocardiogram w/ EF 40 to 45% with apical hypokinesis with no prior comparison. Continue medical therapy with aspirin, pending plan addition of Brilinta, statin, metoprolol, lisinopril regimen. Cardiology consulted with 03/30/2021 cardiac catheterization with totally occluded mid left anterior descending artery stent with faint distal filling and moderate disease noted in the circumflex artery with reduced LV systolic function with severe hypokinesis anterior wall and apex as well as inferior apical wall. Immediately upon findings in the cardiac catheterization lab discussion ensued with cardiology given concerns about stenting with usage of addition Brilinta given recent stroke. Did perform a stat neurology consultation and discussed patient's case with neurology clearance for start of both aspirin and Brilinta with only recommendation to have a follow-up CT which will be delayed to 03/31/2021 given usage of contrast during cardiac catheterization as obtaining a CT earlier would yield inappropriate results. Of note on discharge patient will need a Brilinta medication assistance card and likely plan at 30 to 60-day transition to Plavix per discussion with cardiology. #2. Recent acute right MCA territory infarct involving right [place], head of caudate nucleus, internal capsule, insular cortex and anterior right temporal lobe: Patient with left-sided hemiplegia, left lower extremity has been improving, transition from acute rehab as noted, will continue physical and occupational therapies, maintained on aspirin, statin, hypertensive regimen as noted with alterations per #1. #3. Chronic migraines: Given presentation #1 with recent #2 there is some limitation on what patient may be administered. Given some concern about associated neck strain administered as needed tizanidine with a one-time dose additionally, held on any usage of Decadron or Toradol given recent stroke and acute heart attack as noted #1 and #2, initiated on IV Depacon as well as 3 times daily low-dose gabapentin with significant improvement. 03/30/2021 we will transition to nightly 500 ER Depakote and continue low-dose gabapentin. Will encourage patient again to follow-up with neurology to discuss regimen for chronic migraines if he has any recurrence. #3. CAD: Status post PCI RCA and LAD approximately 2 years prior to current presentation, maintained on aspirin, pending plan addition of Brilinta given number 1, metoprolol, lisinopril, statin therapy. #4. Hypertension: Continue home regimen including metoprolol, lisinopril, PRN hydralazine. #5. Hyperlipidemia: Continue home statin regimen. AM FLP with TG 112, total cholesterol 117, LDL 62, VLDL 22, HDL 33. #6. Tobacco Abuse: Encouraged cessation, inpatient consultation per RT, NR if desired. #7. Chronic asthma with allergic rhinitis: Not on any routine inhalers, will have as needed albuterol, encourage head of bed and I-S usage if appropriate, continue patient montelukast regimen. #8. GERD: We will continue patient home PPI. #9. DVT prophylaxis: SCDs, maintain on heparin drip given current presentation with transition to chemoprophylactic regimen given enzymes trending downward per cardiology discretion. Discussed discharge planning with case management/social work and patient is likely not going to be a candidate to return to acute rehab unless insurance is amenable.
[2021-03-31] MEDS: Methocarbamol 750 MG Tablet PO (06:59)
--- NOTE | 2021-03-31 07:20 | PN.CARD_ITS ---
Subjective Subjective Patient seen and evaluated Objective Data Vital Signs: Vital Signs Temp Pulse Resp BP Pulse Ox 98.9 F 84 16 103/74 94 03/31/21 03:00 03/31/21 03:00 03/31/21 03:00 03/31/21 03:00 03/31/21 03:00 Oxygen Delivery Method Room Air Weight: 198 lb 6.656 oz Body Mass Index (BMI) 28.5 Intake & Output: Intake and Output for Last 24 Hours 03/29/21 03/30/21 03/31/21 23:59 23:59 23:59 Intake Total 3978.42 / 4278.42 3452.66 / 3452.66 1478.95 / 1478.95 Output Total 700 / 1100 1725 / 1725 500 / 500 Balance 3278.42 / 3178.42 1727.66 / 1727.66 978.95 / 978.95 Lab / Micro Data Result Diagrams: 03/30/21 05:10 03/30/21 05:10 Labs: Laboratory Results - last 24 hr 03/30/21 23:09: APTT 33.9 Cardiology Labs/Tests 03/30/21 23:09: APTT 33.9 Rhythm: EKG: ECHO: Stress Test: Cardiac Cath: PCI: CT Surgery: Holter monitor: EPS: PPM: CXR: Chest CT Scan: Physical Exam Const alert, oriented x3 and no apparent distress General Appearance: cooperative HEENT hearing grossly normal bilaterally Eyes EOMs intact bilaterally Neck General: normal visual inspection Chest inspection of chest normal and palpation of chest normal Resp normal respiratory effort Auscultation: clear to auscultation bilaterally Cardio regular rate, regular rhythm, S1 normal heart sound and S2 normal heart sound Jugular Venous Distention: JVD GI normal to inspection, nondistended, normoactive bowel sounds Extremity normal capillary refill and no pedal edema Skin no rashes or lesions noted Neuro oriented x3 and CN's II-XII intact bilaterally Psych Appearance: grossly normal and appropriate Assessment & Plan Assessment/Plan (1) Acute non-ST elevation myocardial infarction (NSTEMI): PLAN: He is status post non-ST elevation myocardial infarction. He u nderwent a cardiac catheterization which demonstrated a total occlusion of the left anterior descending artery stent. It appears that this was likely secondary to discontinuation of the clopidogrel. His other arteries appeared to be free of significant disease. There was 50% stenosis in the circumflex artery and the stent in the right coronary artery was patent. * Based on the above we l proceeded with angioplasty and stenting of the left anterior descending artery * Will likely use Brilinta since Integrilin is contraindicated within a month of his last stroke * Continue aspirin (2) Acute ischemic right MCA stroke: PLAN: He is status post acute right MCA stroke with intervention by neurosurgery. We will consult with them about long-term antiplatelet therapy this soon post CVA He is scheduled to have a CT as baseline prior to discharge. We will continue to monitor his loop recorder
[2021-03-31 08:00] VITALS: O2SAT 97
--- NOTE | 2021-03-31 08:06 | DS.PCM_ITS ---
Providers Date of Admission: 03/28/21 Primary Care Physician: Dr. Kristie Magdaleno MD Consultations 03/28/21 10:40 Consult: Cardiology Routine Consulting Provider: Familia Snider Reason for Consult: Unstable angina, hx CAD s/p PCI x 2 EMERGENT Consult: No MD Notified: Yes Date Notified: 03/28/21 Time Notified: 10:40 Method of Notification: cortext Reason For Visit: CHEST PAIN Diagnosis Discharge Diagnosis (1) Acute non-ST elevation myocardial infarction (NSTEMI): Status: Acute Code(s): I21.4 - Non-ST elevation (NSTEMI) myocardial infarction (2) Acute ischemic right MCA stroke: Status: Acute Code(s): I63.511 - Cerebral infarction due to unspecified occlusion or stenosis of right middle cerebral artery Medications at Discharge Home Medications aspirin 81 mg PO BREAKFAST 30 Days #30 tab 03/31/21 atorvastatin 40 mg PO DAILY 30 Days #30 tab 03/31/21 divalproex 500 mg PO QHS 30 Days #30 tab 03/31/21 gabapentin 100 mg PO TIDCM 30 Days #90 cap 03/31/21 lisinopril 10 mg PO DAILY 30 Days #30 tab 03/31/21 methocarbamol 750 mg PO Q8H PRN 30 Days #90 tab 03/31/21 metoprolol succinate 25 mg PO DAILY 30 Days #30 ea 03/31/21 montelukast 10 mg PO DAILY 30 Days #30 tab 03/31/21 nicotine 1 patch TRANSDERMAL DAILY 14 Days #14 ea 03/31/21 pantoprazole 40 mg PO DAILY 30 Days #30 tab 03/31/21 ticagrelor [Brilinta] 90 mg PO BID 30 Days #60 tab 03/31/21 Hospital Course Operations None Procedures 2-D Echocardiogram, Cardiac catheterization and EKG Summary of Care Provided Minutes Spent on Discharge: 35 Hospital Course: DISCHARGE NOTE: Discharge Diagnoses: The patient is a 46 y/o M w/ PMHx: Tobacco use, Asthma, GERD, HTN, HLD, CAD s/p PCI RCA, LAD ~ 2 years prior, recent 03/15/21 onset L sided hemiplegia with CT head with dense MCA sign with edematous temporal lobe felt not a TPA candidate with a CTA demonstrating an occluded M1 segment on the right transferred to [facility] for possible endovascular intervention at that time then transitioned post acute CVA care to acute rehab on 03/19/21 with ongoing therapies and evaluation for postacute care with onset while performing physical and occupational therapy on 03/28/2021 midsternal chest discomfort described as a pressure. #1. Chest Pain w/ Acute NSTEMI with mid LAD stent complete occlusion s/p AV PCI #2. Recent acute right MCA territory infarct involving right Putterman, head of caudate nucleus, internal capsule, insular cortex and anterior right temporal lobe with left-sided hemiplegia #3. Chronic migraines with acute intractable migraine #3. CAD status post prior PCI RCA and LAD #4. Hypertension #5. Hyperlipidemia #6. Tobacco Abuse #7. Chronic asthma with allergic rhinitis #8. GERD Discharge Summary: The patient is a 46 y/o M w/ PMHx: Tobacco use, Asthma, GERD, HTN, HLD, CAD s/p PCI RCA, LAD ~ 2 years prior, recent 03/15/21 onset L sided hemiplegia with CT head with dense MCA sign with edematous temporal lobe felt not a TPA candidate with a CTA demonstrating an occluded M1 segment on the right transferred to [facility] for possible endovascular intervention at that time then transitioned post acute CVA care to acute rehab on 03/19/21 with ongoing therapies and evaluation for postacute care with onset while performing physical and occupational therapy on 03/28/2021 midsternal chest discomfort described as a pressure. EKG in acute rehab w/ no acute cardiopulmonary findings, CXR requested, initial cardiac enzyme performed in rehab and pending. Patient was a direct admitted to PCU, maintained on monitor, given concern for unstable angina which eventually presented to self to be an acute NSTEMI patient had been immediately initiated on heparin therapy, serial cardiac enzymes with initial 18-> 660-> 7856-> 61647 ->03/29/21 [id number], trending downward. Magnesium 2.4. FLP with TG 112, total cholesterol 117, LDL 62, VLDL 22, HDL 33. Echocardiogram w/ EF 40 to 45% with apical hypokinesis with no prior comparison. Continued medical therapy with aspirin, added Brilinta, statin, metoprolol, lisinopril regimen. Cardiology consulted with 03/30/2021 cardiac catheterization with totally occluded mid left anterior descending artery stent with faint distal filling and moderate disease noted in the circumflex artery with reduced LV systolic function with severe hypokinesis anterior wall and apex as well as inferior apical wall. Immediately upon findings in the cardiac catheterization lab discussion ensued with cardiology given concerns about stenting with usage of addition Brilinta given recent stroke. Did perform a stat neurology consultation and discussed patient's case with neurology clearance for start of both aspirin and Brilinta with only recommendation to have a follow-up CT which was performed 03/31/21 and demonstrated R MCA infarct with edema but no evidence of acute bleed. Of note on discharge patient will need a Brilinta medication assistance card and likely plan at 30 to 60-day transition to Plavix per discussion with cardiology. Patient upon discharge requested home discharge with outpatient PT and OT which was arranged and also requested continuation of all his previously arranged neuro visit follow-ups per [facility]. Requested cardiology follow-up in 1 week. Patient with ongoing intractable migraine upon presentation; however, given his acute OR and recent acute CVA there were limitations on medications. He was initiated on IV Depacon as well as 3 times daily low-dose gabapentin with significant improvement. 03/30/2021 transitioned to nightly 500 ER Depakote and continue low-dose gabapentin w/ recommended discussion at follow-up with neurology to discuss regimen for chronic migraines if he has any recurrence. Patient cleared per Cardiology for discharge. Discharge Time: > 35 Minutes DAY OF DISCHARGE PROGRESS NOTE: Subjective: Patient without acute event overnight per self and nursing report. Patient denies any recurrent chest discomfort. Patient also notes his migraine has remained resolved. He notes he slept well. Patient amenable to continue regimen with follow-up with neurology. Patient denies fever, chills, nausea, emesis, abdominal pain, chest pain or dyspnea. Patient agreeable to discharge to home with outpatient PT and OT requested. Patient will be discharged with follow-up with primary care physician, cardiology as well as follow-up with several neurology appointments already prearranged by [facility]. Objective: T 98.1, heart rate 100, BP 105/76, respiratory rate 18, 99% on room air. Physical Examination: General: Awake, alert, oriented x 3 and cooperative, seated upright in the PCU bed, no acute distress, no further chest pain and migraine remains resolved. Skin: Normal color, normal turgor, no icterus, no cyanosis. HEENT: AT/NC, EOMI, PERRLA, MMM. Lungs: CTA bilaterally, moderate effort, mild decrease BL bases, no rales, ronchi or wheezing. Heart: Regular rate and rhythm; no gallop, rub audible. Abdomen: Soft, overweight, NTTP, ND, normal BS. Extremities: No cyanosis, clubbing, or edema. 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 Psychiatric: Affect appears appropriate, no acute evidence of depressive or anxiety feelings. Assessment and Plan: Please see hospital summary above. Weight / BMI Weight Weight: 198 lb 6.656 oz Body Mass Index (BMI) 28.5 ABG / Lab / Microbiology Data Result Diagrams: 03/30/21 05:10 03/30/21 05:10 Laboratory: Laboratory Results - last 24 hr 03/30/21 23:09: APTT 33.9 Microbiology: Microbiology 03/29/21 22:28 Urine, Random Urine Culture - Preliminary Culture exhibits no growth. 03/29/21 22:20 Nasal Secretion SARS-CoV-2 Antigen (Rapid) - Final D/C Instructions Discharge Diet: Low fat / Low cholesterol Call your doctor if your incision/area has: Continuous Slow Oozing, Sudden Increased Bleeding, Increased Pain/ Swelling, Increased Redness, Foul Smelling Discharge and Swelling at the incision site Call your doctor if you observe: Fever of 101 or Higher, Dizziness, Chest pain, Increased palpitations (irregular heartbeat) and Uncontrolled pain Suture Line Care: - (Recurrent severe migraines.) Meaningful Use Info Meaningful Use Diagnoses (Choose all that apply): AMI AMI/Post PCI/Angioplasty Aspirin given w/in 24hrs of arrival?: Yes ASA at discharge?: Yes Antiplatelet Therapy at Discharge:: Yes Statins at discharge?: Yes Castillo/ARB at discharge?: Yes Beta Lila at discharge?: Yes Done w/ Acute OR measure.: Yes Documented LVEF (%): 45 Discharge Plan Admission Admit Date/Time: 03/28/21 10:42 Primary Reason for Your Visit: Acute NSTEMI with mid LAD stent complete oc clusion Attending Provider: Layla Parekh Primary Care Provider: Kristie Magdaleno Consulting Providers: Familia Snider Instructions Additional Instructions / Restrictions: Patient Problems: Altered Health Status related to Hospitalization Patient Goals: *Optimal Level of Health *Keep Appointments *Medication Compliance *Remain SafeADDITIONAL FOLLOW-UP FROM RECENT [facility] STROKE ADMISSION: Dr. 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 Fabain Ariza 07/28/20 arrive by 4:15 pm [facility] It is very important you continue outpatient physical and occupation therapies given your request for discharge to home. You are not cleared to drive until cleared per Neurology at follow-up. CHRONIC MIGRAINES: You have been started on low dose three times daily gabapentin and nightly depakote ER. Please continue the depakote ER until re- evaluation per Neurology as they can also treat your chronic migraines in addition to your primary care physician. You may wean off the gabapentin over time. It is important to work on migraine trigger avoidance and lifestyle changes. RECENT HEART ATTACK AND STENT PLACEMENT: It is vital you continue your new medications including the aspirin and brillinta. You will be transitioned at cardiology follow-up to plavix. Upon discharge a discount care has been given for your brillinta rx. NICOTINE: Please continue the nicotine replacement plan for tobacco cessation. You have been given 2 weeks of the highest patch dose. Please discuss decreased patch doses at primary care follow-up. Discharge Orders/Prescriptions Prescriptions: New aspirin 81 mg Tablet,Chewable 81 mg PO BREAKFAST 30 Days Qty: 30 RF: 1 divalproex 500 mg Tablet Extended Release 24 Hr 500 mg PO QHS 30 Days Qty: 30 RF: 1 gabapentin 100 mg Capsule 100 mg PO TIDCM 30 Days Qty: 90 RF: 1 Brilinta 90 mg Tablet 90 mg PO BID 30 Days Qty: 60 RF: 1 Continued atorvastatin 40 mg Tablet 40 mg PO DAILY 30 Days Qty: 30 RF: 0 pantoprazole 40 mg Tablet,Delayed Release (Dr/Ec) 40 mg PO DAILY 30 Days Qty: 30 RF: 1 lisinopril 10 mg Tablet 10 mg PO DAILY 30 Days Qty: 30 RF: 1 nicotine 21 mg/24 hr Patch 24 Hour 1 patch TRANSDERMAL DAILY 14 Days Qty: 14 RF: 0 montelukast 10 mg Tablet 10 mg PO DAILY 30 Days Qty: 30 RF: 1 metoprolol succinate 25 mg Capsule,Sprinkle,Er 24hr 25 mg PO DAILY 30 Days Qty: 30 RF: 1 Changed methocarbamol 750 mg Tablet 750 mg PO Q8H PRN (Reason: muscle relaxer, strain) 30 Days Qty: 90 RF: 0 Discontinued aspirin 81 mg Tablet 81 mg PO DAILY RF: 0 Referrals / Follow Up: Anjum Munoz MD [STAFF PHYSICIAN] - (Follow-up in 4 weeks, may see VEGETABLE VENDOR.) Kristie Magdaleno MD [Primary Care Provider] - (Follow-up within 3-5 days hospital discharge.) Juma Siddiqi MD [STAFF PHYSICIAN] - (If you would prefer to follow-up locally after your arranged follow-up visits in [place] with Neurology you may opt to contact Dr. Siddiqi's office.) Disposition Disposition (needs filled in before D/C Order can be placed): Home Health Service Charges/Coding Visit Charges Inpatient E&M: 46304 Disch Hosp
[2021-03-31 08:12] VITALS: PULSE 92
--- NOTE | 2021-03-31 09:45 | CASEMGMT ---
Pt provided with Brilinta co-pay coupon card and script for OP therapy as pt would like to take it somewhere closer to where he lives. Pt voices no further questions/concerns/needs. Carol ROCKWELL CM
[2021-03-31] MEDS: Gabapentin 100 MG Capsule PO (09:47)
[2021-03-31] MEDS: Aspirin 81 MG TAB.CHEW PO (09:47)
[2021-03-31 10:00] VITALS: BP 105/76; PULSE 100
[2021-03-31] MEDS: TICAGRELOR 90 MG TABLET PO (10:00)
[2021-03-31] MEDS: Montelukast 10 MG Tablet PO (10:00)
[2021-03-31] MEDS: Pantoprazole Sodium 40 MG Tablet PO (10:00)
--- NOTE | 2021-03-31 10:00 | EKG12_ITS ---
Test Reason : CP ADMISSION Blood Pressure : / mmHG Vent. Rate : 068 BPM Atrial Rate : 068 BPM P-R Int : 132 ms QRS Dur : 088 ms QT Int : 390 ms P-R-T Axes : 010 040 015 degrees QTc Int : 414 ms Normal sinus rhythm Low voltage QRS Borderline ECG When compared with ECG of 28-MAR-2021 09:38, MANUAL COMPARISON REQUIRED, DATA IS UNCONFIRMED Confirmed by CORNELIA LILLY, LORENA ([id number]), small engine trainer GUSTAVO AUSTIN ([id number]) on 03/31/2021 9:25:10 AM Referred By: VICTOR M Confirmed By:LORENA LOCKE MD
[2021-03-31 10:35] VITALS: BP 105/76; PULSE 100; RESP 18; TEMP 36.7; O2SAT 99
--- NOTE | 2021-03-31 12:00 | CT_ITS ---
STUDY: CT BRAIN WITHOUT CONTRAST REASON FOR EXAM: Male, 46 years old. S/p CVA, follow-up. RADIATION DOSAGE (If Supplied By Facility): CTDIvol = ( 47.06 ) mGy, DLP = ( 890.33 ) mGycm TECHNIQUE: Transaxial CT imaging of the brain was performed without administration of intravenous contrast material. Individualized dose optimization techniques were used for this CT. COMPARISON: Comparison is made with prior study dated 03/15/2021. FINDINGS: Normal soft tissue structures. Normal calvarium. Since prior study, there has been progression of the infarction involving the distribution of the right middle cerebral artery territory with the progressive edematous changes involving the right temporal parietal lobe as well as the right basal ganglia. There is evidence of a mass effect on the right frontal horn. Normal brainstem. Normal cerebellum. There is no intracranial hemorrhage. There are no findings of an acute ischemic infarction. Normal visualized paranasal sinuses. CT/Brain/Head without Contrast IMPRESSION: Since prior study, there has been a progression of the infarction involving the distribution of the right middle cerebral artery territory. There is a mass effect on the right frontal horn. Electronically Signed: Mike De León MD at 10:13 EST , Service support ,
== END 2021-03-31 10:49 | disposition home health service (06) | DRG 247 ==
PROVIDERS: Family Medicine; Hospitalist; Internal Medicine Interventional Cardiology; Admitting Provider Family Medicine; PCP Family Medicine; Visit Provider Family Medicine
DX: I21.4 Non-ST elevation (NSTEMI) myocardial infarction (principal); I69.354 Hemiplegia and hemiparesis following cerebral infarction affecting left non-dominant side; I25.10 Atherosclerotic heart disease of native coronary artery without angina pectoris; E78.5 Hyperlipidemia, unspecified; I10 Essential (primary) hypertension; G43.919 Migraine, unspecified, intractable, without status migrainosus; I25.2 Old myocardial infarction; K21.9 Gastro-esophageal reflux disease without esophagitis; N28.1 Cyst of kidney, acquired; J45.909 Unspecified asthma, uncomplicated; Z79.82 Long term (current) use of aspirin; Z79.899 Other long term (current) drug therapy; F17.210 Nicotine dependence, cigarettes, uncomplicated
CPT/HCPCS: 36415; 70450; 71045; 80048; 80053; 80061; 81001; 83605; 83735; 84484; 85025; 85610; 85730; 87040; 87086; 87426; 92920; 92973; 93005; 93306; 93458; 97162; 97165; 97530; 97535; 99152; 99153; C1757; J7030; J7040; Q9957; Q9967; A4216; C1725; C1769; C1887; C1894; C8929; J2405; J3490

== ENCOUNTER 2021-05-05 17:55 | Inpatient (IN) | payer BC, MEDICAID, SELFPAY ==
[2021-05-05 17:58] VITALS: BP 106/64; PULSE 75; RESP 16; TEMP 36.4; O2SAT 98; BMI 28.8
[2021-05-05 19:30] VITALS: BP 108/65; PULSE 91; RESP 18; TEMP 37.1; O2SAT 98
[2021-05-05] MEDS: oxyCODONE 5 MG Tablet PO (20:43)
[2021-05-05] MEDS: Atorvastatin Calcium 40 MG Tablet PO (22:58)
[2021-05-05] MEDS: Enoxaparin 100 MG/ML Syringe 90 MG SC (22:58)
[2021-05-05] MEDS: Divalproex (ER) 500 MG Tablet PO (22:58)
[2021-05-05] MEDS: Senna/Docusate Sodium 1 Tablet 2 TABLET PO (22:59)
[2021-05-05] MEDS: Acetaminophen 325 MG Tablet 975 MG PO (22:59)
[2021-05-06] MEDS: oxyCODONE 5 MG Tablet PO ×3 (03:49→20:44)
[2021-05-06 05:53] LABS: Absolute Lymphocyte Count 2.24 X10^3/uL (0.83-4.51); Absolute Neutrophil Count 4.3 X10^3/uL (2.0-7.7); Basophil# 0.03 X10^3/uL; Basophil% 0.4 % (0-1); Eosinophil# 0.29 X10^3/uL; Eosinophils% 3.9 % (0-5); Hematocrit 26.6 % (40-54); Hemoglobin 8.4 g/dL (13.0-16.5); Lymphocyte # 2.24 X10^3/ul (0.83-4.51); Lymphocyte % 29.7 % (19-41); Mean Corp Hgb Conc 31.6 g/dL (32-36); Mean Corpuscular Hgb 30.9 pg (27.0-32.0); Mean Corpuscular Volume 97.8 fL (80-94); Mean Platelet Vol. 8.3 fl (6.2-12.0); Monocyte# 0.56 X10^3/uL; Monocyte% 7.4 % (0-10); NRBC Flagged by Analyzer 0.5 % (0-5); Neutrophil % 57.1 % (47-70); Platelet Count 594 K/mm3 (150-450); RBC Distribution Width CV 15.1 % (11.6-14.6); RBC Distribution Width SD 52.9 fl (35.1-43.9); Red Blood Count 2.72 M/mm3 (4.6-6.2); White Blood Count 7.5 K/mm3 (4.4-11.0)
[2021-05-06 06:00] LABS: Prothrombin Time (Protime)PT. 21.6 SECONDS (11.7-14.9)
[2021-05-06] MEDS: Acetaminophen 325 MG Tablet 975 MG PO ×3 (06:14→22:19)
[2021-05-06 06:16] LABS: ALB/GLOB Ratio 0.6 RATIO (0.9-2.4); AST(SGOT) 26 U/L (15-37); Alanine Aminotransfer ALT/SGPT 78 U/L (16-61); Alkaline Phosphatase 68 U/L (45-117); Anion Gap 5 (5-15); BUN 18 mg/dL (7-18); BUN/Creat Ratio 18.8 RATIO (10-20); Calcium,Total 8.6 mg/dL (8.5-10.1); Chloride 106 mmol/L (98-107); Creatinine, Serum 0.96 mg/dL (0.70-1.30); EST Glomerular Filtration Rate 89 mL/min (>60); Est Glom Filt Rate - Afr Amer 108 mL/min (>60); Globulin 3.5 g/dL (2.2-4.2); Glucose 94 mg/dL (74-106); Magnesium 2.1 mg/dL (1.6-2.6); Phosphorus 4.5 mg/dL (2.5-4.9); Potassium 4.7 mmol/L (3.5-5.1); Protein, Total 5.5 g/dL (6.4-8.2); Sodium Level 138 mmol/L (136-145)
[2021-05-06 06:40] VITALS: O2SAT 93
[2021-05-06 07:48] VITALS: BP 112/69; PULSE 74; RESP 16; TEMP 36.8; O2SAT 99
[2021-05-06] MEDS: Gabapentin 100 MG Capsule PO ×3 (08:35→17:16)
[2021-05-06] MEDS: Enoxaparin 100 MG/ML Syringe 90 MG SC ×2 (08:35→22:20)
[2021-05-06] MEDS: Senna/Docusate Sodium 1 Tablet 2 TABLET PO ×2 (08:36→22:20)
[2021-05-06] MEDS: Lisinopril 10 MG Tablet PO (08:36)
[2021-05-06] MEDS: Clopidogrel Bisulfate 75 MG Tablet PO (08:36)
[2021-05-06] MEDS: Pantoprazole Sodium 40 MG Tablet PO ×2 (08:36→22:20)
[2021-05-06] MEDS: Montelukast 10 MG Tablet PO (08:36)
[2021-05-06 08:37] VITALS: BP 112/69; PULSE 74
[2021-05-06] MEDS: Metoprolol(XL)Succ 25 MG Tablet PO (08:37)
--- NOTE | 2021-05-06 10:41 | PCM.HP.STD ---
HPI - General General Date of Admission: 05/05/21 HPI Narrative ANNEMARIE HOLLINS, is a 46 YO M who who is known to me from a previous admission for ischemic CVA in the R MCA distribution in March of 2021 for which he had a thrombectomy at [facility]. He also had a loop recorder inserted at [facility]. While still in rehab on 03/28/21 he had a NSTEMI and was transferred to an acute monitored hosital bed. He undewent cardiac catheterization on 03/30/21 and this showed an instent occulsion of the LAD. He underwent thrombectomy/angioplasty of the LAD. The previous stent to the RCA was patent. He was also noted to have a 50% stenosis of the circ at the time of catheterization. He was discharged home rather than to rehab, at his request, on 03/30/21 on Brilinta and ASA. Appts were scheduled for him with neurology, cardiology and his PCP, Christine Magdaleno MD. On 04/20/21 he had N/lightheadedness in the evening and the next morning he experienced severe pain in the RLE which progressed to inability to move the R foot and distal R leg. He presented to an outside ED and was found to have critical arterial ischemia of the RLE due to occlusion of the aortic bifurcation with clot. He was emergently transferred to and underwent emergency surgery for revascularization of the RLE. He had extensive thrombectomy and also had a PTCA of the PT artery and a 4 compartment thrombectomy. Post op course was complicated by ARF due to rhabdomyolysis, acute blood loss anemia requiring transfusion and hyperkalemia. He was seen by PT/OT and continues to have Left side weakness and L facial droop from the R MCA CVA in March of 2021. In addition he has some weakness of the RLE and has healing fasciotomies with a wound vac. PT/OT recommended acute rehab and Annemarie chose to return to [facility] acute rehab. Annemarie tells me that he was told at his hypercoagulable W/U was negative and they do not know why he is having arterial clots. He tells me that he only missed medications on 04/20/21 because he was lightheaded, nauseated and vomiting. He also tells me that he has not smoked since his admission to the rehab unit in March. ECHO at showed a 50% EF (it was 40% in March when he had the NSTEMI), diastolic dysfunction, apical wall motion abnormality and no PFO or thrombus. Procedures at included US guided left TRANSPORTATION CONSULTANT access, aortogram, R leg angiogram, percutaneous thrombectomy, CLOUD SYSTEMS ADMINISTRATOR of the R PT and R leg 4 compartment fasciotomy on 04/21/21. There was occlusion of the aortic bifurcation with extension of clot into the bilateral iliac arteries and there was also occlusion of the right external iliac artery, common femoral artery, profunda, superficial femoral artery proximally, superficial femoral artery mid, superficial femoral artery distal and the popliteal artery. There was also probable occlusion of the right posterior tibial, peroneal and anterior tibial arteries. One of the progress notes from vascular medicine at states the anti-cardiolipin antibodies and the Anti [id number] was negative but, JAK2, lupus anticoagulant and Lipoprotein A were still pending. NONE of the hypercoagulable labs were included in the DC packet. Vascular did say they preferred Warfarin rather than a NOAC. He has a virtual appt with vascular medicine on May 21. He had CT of the abd/pelvis and chest while at and there were no findings consistent with possible malignancy. He does have emphysematous changes in primarily the upper lobes. All labs done today were personally reviewed. White blood cell count is normal at 7.5. Hemoglobin is 8.4 and platelets are elevated at 594. INR is 2.0 today and was 2.[address] [facility]. Creatinine is 0.96 which is within his baseline. The phosphorus is 4.5 and the magnesium is 2.1. [facility] Medical History (Updated 05/06/21 @ 16:[address] Shalini Stanley, ) Acute ischemic right MCA stroke Acute non-ST elevation myocardial infarction (NSTEMI) Acute renal failure due to rhabdomyolysis Aortic occlusion Asthma Atherosclerotic heart disease of jena coronary artery without angina pectoris CAD (coronary artery disease) COPD (chronic obstructive pulmonary disease) Diastolic dysfunction Essential hypertension GERD (gastroesophageal reflux disease) History of CVA (cerebrovascular accident) Ischemic cardiomyopathy Migraine Renal cyst Secondary rhabdomyolysis Tobacco dependence Home Medications atorvastatin 40 mg PO DAILY 30 Days #30 tab 03/31/21 [Rx Last Taken Unknown] lisinopril 10 mg PO DAILY 30 Days #30 tab 03/31/21 [Rx Last Taken Unknown] methocarbamol 750 mg PO Q8H PRN 30 Days #90 tab 03/31/21 [Rx Last Taken Unknown] metoprolol succinate 25 mg PO DAILY 30 Days #30 ea 03/31/21 [Rx Last Taken Unknown] montelukast 10 mg PO DAILY 30 Days #30 tab 03/31/21 [Rx Last Taken Unknown] nicotine 1 patch TRANSDERMAL DAILY 14 Days #14 ea 03/31/21 [Rx Last Taken Unknown] pantoprazole 40 mg PO DAILY 30 Days #30 tab 03/31/21 [Rx Last Taken Unknown] aspirin 81 mg PO BREAKFAST 05/05/21 [History Last Taken Unknown] divalproex 500 mg PO QHS 05/05/21 [History Last Taken Unknown] gabapentin 100 mg PO TIDCM 05/05/21 [History Last Taken Unknown] ticagrelor [Brilinta] 90 mg PO BID 05/05/21 [History Last Taken Unknown] Allergy/AdvReac Type Severity Reaction Status Date / Time bee venom protein (honey bee) Allergy NEEDS Verified 03/15/21 08:18 FOLLOW-UP Family History (Updated 03/28/21 @ 10:[address] Layla Parekh MD) Uncle CAD (coronary artery disease) Father Aneurysm Hypertension Mother Hypertension Other Myocardial infarction Surgical History (Updated 05/06/21 @ 13:[address] Shalini Stanley DO) History of cholecystectomy History of coronary angioplasty (03/30/21) History of coronary artery stent placement History of cosmetic plastic surgery History of fasciotomy History of revascularization procedure of lower extremity Social History (Updated 05/06/21 @ 14:[address] 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 and neg history of recent travel: No sexually active: Yes do you think of yourself as: straight/heterosexual current gender identity: male Smoking Status: Former smoker quit date: 03/16/21 Tobacco: How many years used: 35 counseling given: provider counseling substance use type: does not use caffeine: Yes ROS Constitutional Constitutional: Reports fatigue and weakness; Denies anorexia, change in weight, chills, fever(s) or night sweats Eyes Eyes: Denies blurry vision, change in vision, eye pain or loss of vision ENT HEENT: Reports other Details: no headaches since starting on Depakote and Gabapentin for treatment of migraines ; Denies abnormal hearing, dysphagia, headache(s), hearing loss, nasal congestion or sore throat Cardiovascular Cardiovascular: Reports dyspnea on exertion, edema, lightheadedness and orthopnea; Denies chest pain, palpitations, paroxysmal nocturnal dyspnea or syncope Respiratory/Chest Respiratory/Chest: Reports shortness of breath with exertion; Denies cough, dyspnea, shortness of breath at rest or wheezing Gastrointestinal Gastrointestinal: Reports abdominal pain and nausea; Denies constipation, diarrhea, dyspepsia, hematemesis, hematochezia or vomiting Genitourinary Genitourinary: Denies dysuria, hematuria, nocturia, urinary frequency, urinary hesitancy, urinary incontinence or urinary urgency Musculoskeletal Musculoskeletal: Reports abnormal gait, difficulty walking, muscle weakness, myalgias and neck pain; Denies back pain, joint pain or joint swelling Integumentary Integumentary: Reports other Details: fasciotomies RLE Neurologic Neurologic: Reports dizziness and focal weakness; Denies confusion, disequilibrium, headache(s), paresthesias, seizures or tremor(s) Psychiatric Psychiatric: Reports other Details: He is much more realistic than previous admissions and no longer seems euphoric and is not overestimating his abilities at this time ; Denies anxiety, depression, homicidal ideation or suicidal ideation Endocrine Endocrinology: Denies change in body appearance, polydipsia or polyuria Hematologic/Lymphatic Hematologic/Lymphatic: Denies easy bleeding, easy bruising or lymphadenopathy Allergic/Immunologic Allergic/Immunologic: Denies rhinitis, eczemia or asthma Vital Signs Vital Signs Vital Signs: 05/05/21 17:58 05/05/21 19:30 05/06/21 06:40 Temperature 97.5 F L 98.8 F Temperature Source Oral Temporal Pulse Rate 75 91 Respiratory Rate 16 18 Blood Pressure 106/64 108/65 Blood Pressure Mean 78 79 Blood Pressure Source Monitor Monitor Blood Pressure Position Semi-Fowlers Semi-Fowlers Blood Pressure Location Left Arm Right Arm Pulse Ox 98 98 93 Oxygen Delivery Method Room Air Room Air Room Air 05/06/21 07:48 05/06/21 08:37 Temperature 98.3 F Temperature Source Oral Pulse Rate 74 74 Respiratory Rate 16 Blood Pressure 112/69 112/69 Blood Pressure Mean 83 Blood Pressure Source Monitor Blood Pressure Position Semi-Fowlers Blood Pressure Location Right Arm Pulse Ox 99 Oxygen Delivery Method Room Air Weight Weight: 195 lb 8 oz Body Mass Index (BMI) 28.8 Physical Exam Const alert, oriented x3 and no apparent distress Constitutional Narrative: Making good eye contact, appropriate. Less verbose than at the previous admission to rehab. He is appropriate now and realistic about his condition/physical abilities now. Having some trouble sleeping at night due to muscle pain. Pain gets much worse with dressing changes. General Appearance: cooperative, ill appearing and appears older than stated age HEENT moist oral mucous membranes HEENT Narrative: poor dentition. Teeth are missing and they are stained. Eyes General Eye: normal appearance of both eyes and normal light reflex; Negative for proptosis Neck no lymphadenopathy, supple, no JVD and no carotid bruits Resp normal respiratory effort, no use of accessory muscles and clear to auscultation bilaterally Resp Narrative: Not tachypneic and no conversational dyspnea. Cardio regular rate, regular rhythm, S1 normal heart sound, S2 normal heart sound, no murmurs, no rub and no gallops GI normal to inspection, nondistended, normoactive bowel sounds and non-tender GI Narrative: No guarding with palpation. Extremity Extremity Narrative: edema of the RLE and the L arm........I think the edema in the left arm is because it is weak from the stroke in March and he is not using it. No clubbing Skin Skin Narrative: No rashes, no skin breakdown. There are 2 fasciotomies of the distal RLE located on the medial and lateral sides. they are both getting wet to dry dressing once a day. There is serosanguineous drainage on the dressing. Following removal of the gauze the wound bases were noted to be beefy red and granulating. There is no odor and no purulent DC. There is approximately 5% slough of the medial incision and this is located at the wound margin. The Lateral wound has < 5% slough and once again the slough is located at the wound margin. There is some serosanguineous drainage from the wound but no major bleeding. A wet to dry dressing was reapplied. He was premedicated with 10 mg of Oxycodone prior to the dressing change and he tolerated the dressing change fairly well. He has good sensation of the R toes and foot and there is good cap refill. the R DP is 3/3 and the PT is 1-2/3 by palpation but there is a lot of edema of the medial ankle. Neuro oriented x3 Neuro Narrative: minimal left facial droop, generalized weakness (worse on the left UE than the R and both legs are weak.), persistent cognitive dysfunction with difficulty following complex commands, difficulty with naming and poor memory. No swallowing difficulties. Modified [place] score at this time is 5. Has not been out of bed in 2 weeks prior to admission to the rehab unit. Fatigues easily. Had been falling at home prior to the aortic occlusion. Still with some neglect of the Left LE when standing and pivoting. Psych affect normal Psych Narrative: Appropriate, making good eye contact. Able to stay on topic and focus. No flight of ideas. Does not appear anxious or depressed. Conversant and relating well to staff. Results Lab / Micro Data Result Diagrams: 05/06/21 05:40 05/06/21 05:40 Labs: Laboratory Results - last 24 hr 05/06/21 05:40: WBC 7.5, RBC 2.72 L, Hgb 8.4 L, Hct 26.6 L, MCV 97.8 H, MCH 30.9, MCHC 31.6 L, RDW Std Deviation 52.9 H, RDW Coeff of Elbert 15.1 H, Plt Count 594 H, MPV 8.3, Immature Gran % (Auto) 1.500 H, Neut % (Auto) 57.1, Lymph % (Auto) 29.7, [place] % (Auto) 7.4, Eos % (Auto) 3.9, Baso % (Auto) 0.4, Absolute Neuts (auto) 4.3, Absolute Lymphs (auto) 2.24, Nucleated RBC % 0.5 05/06/21 05:40: PT 21.6 H, INR 2.0 05/06/21 05:40: Sodium 138, Potassium 4.7, Chloride 106, Carbon Dioxide 27.0, Anion Gap 5, BUN 18, Creatinine 0.96, Estim Creat Clear Calc 94.10, Est GFR (MDRD) Af Amer 108, Est GFR (MDRD) Non-Af 89, BUN/Creatinine Ratio 18.8, Glucose 94, Calcium 8.6, Phosphorus 4.5, Magnesium 2.1, Total Bilirubin 0.30, AST 26, ALT 78 H, Alkaline Phosphatase 68, Total Protein 5.5 L, Albumin 2.0 L, Globulin 3.5, Albumin/Globulin Ratio 0.6 L Assessment & Plan Assessment/Plan (1) Physical debility: (2) Aortic occlusion: (3) History of revascularization procedure of lower extremity: (4) History of fasciotomy: (5) Secondary rhabdomyolysis: (6) Acute blood loss anemia: (7) Thrombocytosis: (8) Chronic anticoagulation: (9) Clotting disorder: (10) Atherosclerotic heart disease of jena coronary artery without angina pectoris: (11) History of coronary angioplasty: (12) Ischemic cardiomyopathy: (13) History of coronary artery stent placement: (14) Diastolic dysfunction: (15) Acute ischemic right MCA stroke: (16) Left-sided weakness: (17) Left-sided neglect: (18) Cognitive dysfunction: (19) Essential hypertension: PLAN: PLAN PT for gait stability OT for ADL's ST for evaluation/tx for cognitive dysfunction Analgesics as needed. Will schedule medications in preparation for all dressing changes and change the dressings in the late afternoon so as not to interfere with therapy. Bowel protocol Fall precautions Assess for Anxiety/Depression Increase the Protonix to 40 mg BID for GERD. He has persistent Nausea and epigastric pain and required transfusion at so will check a hemoccult stool Bridge the Coumadin and Lovenox until the INR is > 2 for 48 hours and then DC the Lovenox. AM lab including CMP, CBC, Mag and Phos Follow up with Dr. Munoz or cardiology post DC. He still needs to follow up with neurology.......did not see a neurologist prior to being admitted for the aortic occlusion. He has an appt to see Velasquez Marks APRN, CNP at [facility] on 05/22/21 at 0845. He also has an appt with Dr. Ariza on 07/28/21 at 1615 PM Etiology of the hypercoagulability is still unknown. Will request the hypercoagulable labs from . Will need additional W/U following DC from rehab. Malignancy has not been ruled out. Appts: 1. Dr. Jose Raul Rodriguez/vascular surgery - May 28 at 10:00 @ [facility] 2. Dr. Jennifer Rg - vascular medicine Virtual appt on 05/21/21 @ [address] Kennedy/vascular surgery - pt to call in 3 weeks to schedule an appt 4. Vascular lab - 05/28/21 @ 0900 at [place] prior to the appt with the vascular surgeon 5. Velasquez Marks CNP at [facility] neurological [facility] on 06/01/[address] at [address] Ariza at [facility] on 07/28/21 at 1615 Unit Exclusion This patient is an acute care inpatient being housed in the excluded unit because of capacity issues related to the disaster or emergency.: Yes Charges/Coding Visit Charges Inpatient E&M: 18550 Init Hosp L3
[2021-05-06 13:30] LABS: CRP 7.86 mg/L (0.0-3.0); Erythrocyte Sedimentation Rate 18 mm/hr (0-20)
[2021-05-06] MEDS: oxyCODONE 5 MG Tablet 10 MG PO (14:37)
--- NOTE | 2021-05-06 14:54 | PCM.RU.PYE ---
Admission Information Primary Diagnosis:: Debility due to stroke in March 2021 from which he did not fully recover + recent aortoiliac occlusion requiring thrombectomy, PTCA of the R PT artery and 4 compartment fasciotomies + rhabdomyolysis Status Changes from Prescreening?: No changes Identified Actual Problem List:: Skin Intergrity, Pain, ALteration in Cmfrt, Alteration in Sleep, Mobility Impaired, Self Care Deficit, Know.Dfct/Disease Process, Know.Dfct of Medicaitons and Alteration-Leisure Activ. Potential Problem List:: DVT, Bleeding, Infection, UTI, Aspiration, Falls, Skin Integrity and Depression Risk of Complications DVT: ANGIE Woody and - (He is on Coumadin and Lovenox bridge at admission ) Bleeding: Monitor Lab Values, Nursing to Teach Precautions for anti-coagulation therapy., Wound, if applicable, to be assessed every shift. and Stroke patients assessed for lethargy or change in status. Infection: Clinical Staff to Monitor for S/S of infection: and S/S of infection include fever, redness, warmth, etc. Urinary Tract Infection: Monitor for frequency, burning, discomfort, or incontinence. and Nursing will obtain urine sample for urinalysis and C&S when ordered. Aspiration: Clinical staff will monitor for coughing, drooling, congestion., Speech will evaluate swallowing and dsyphasia. and Nursing will monitor patient swallowing during meals. Falls: Patient will be evaluated for Fall Precautions and Patient will be placed on Fall Precautions as indicated per protocol. Skin Breakdown: Nursing will assess skin daily using assessment tool. and Nursing will place on Skin Breakdown Precautions as indicated. Pain: Clinical staff will assess patient's pain level per protocol., Medications will be given, if needed, and the pain level reassessed. and Other methods: Massage, distraction, decrease stimulus, etc. used PRN. Plan of Care Patient requires physician specializing in physical medicine and rehab oversight to provide close medical supervision of rehab issues including: Pain Management, Sleep Problems, Bowel and Bladder, Medical and co-morbidity Management, DVT prophylaxis, Rehabilitation Leadership and Coordination of treatment team Patient needs Physical Therapy: For a minimum of 1 hour and At least 5 out of 7 days Patient needs Physical Therapy to improve:: Mobility, Strengthening, Transfers, Stretching, ROM, Endurance, Stairs, Gait and Balance Patient needs Occupational Therapy: For a minimum of 1 hour and At least 5 out of 7 days Patient needs Occupational Therapy to improve ADL's incl.: Eating, Grooming, Bathing, Dressing, Toileting, Toilet transfers, Community Reintegration, Higher functioning activities, Household tasks, Adaptive Equipment, Splinting and Other activities as determined Patient requires speech therapy: For a minimum of 1 hour and At least 5 out of 7 days Patient requires speech therapy for: Swallowing, Cognition, Language Skills and Compensatory Strategies Patient requires 24/7 Rehabilitation Nursing for: Pain Issues, Identifying and preventing risk factors, Monitoring and reporting current medical conditions, Assisting with ambulation, transfer, and all ADL's, Teaching patients about disease process and medications, Family teaching, Providing safe environment, Bowel and Bladder Issues, Skin integrity and Medication Management Patient needs Party Plan Sales Unit Advisor/ Case Management for: Discharge Planning, Arranging Home Equipment or Services and Family Interventions Patient needs Dietary and Nutrition Services for: Adequate Nutrition, Nutritional Supplements and Nutritional Education Goals Patient will remain: free from falls and or injury at time of discharge. Patient will perform bed mobility at: MOD I level of assist. Patient will complete transfers from bed to chair at: MOD I level of assist. Patient will ambulate: 100 feet and with LRD Patient will complete upper body dressing at: MOD I level of assist. Patient will complete lower body dressing at: MOD I level of assist. Patient will complete toileting at: MOD I level of assist. Patient will perform bathing at: MOD I level of assist. Patient will complete grooming at: MOD I level of assist. Patient will complete home management skills at: MOD I level of assist. Patient will achieve: - (1 curb step and 5 regular steps with 1 HR @ CGA) Patient will have pain level of: of 3 or less Patient's skin will: remain intact Patient will receive: adequate nutrition. Discharge Planning Pt Prognosis for Sig. Practical Improv. w/in Reasonable Time: Good Estimated Length of stay (days): 21
[2021-05-06 20:06] VITALS: BP 110/60; PULSE 80; RESP 18; TEMP 36.3; O2SAT 98
[2021-05-06] MEDS: Atorvastatin Calcium 40 MG Tablet PO (22:21)
[2021-05-06] MEDS: Divalproex (ER) 500 MG Tablet PO (22:21)
[2021-05-07 05:56] LABS: International Normalized Ratio 1.9; Prothrombin Time (Protime)PT. 20.9 SECONDS (11.7-14.9)
[2021-05-07] MEDS: Acetaminophen 325 MG Tablet 975 MG PO ×2 (06:24→15:03)
[2021-05-07] MEDS: oxyCODONE 5 MG Tablet PO ×3 (06:43→22:48)
[2021-05-07 06:50] VITALS: O2SAT 98
[2021-05-07 07:43] VITALS: BP 112/67; PULSE 78; RESP 12; TEMP 36.3; O2SAT 98
[2021-05-07 07:54] VITALS: BP 112/67; PULSE 78
[2021-05-07] MEDS: Metoprolol(XL)Succ 25 MG Tablet PO (07:54)
[2021-05-07] MEDS: Senna/Docusate Sodium 1 Tablet 2 TABLET PO ×2 (07:54→22:49)
[2021-05-07] MEDS: Clopidogrel Bisulfate 75 MG Tablet PO (07:54)
[2021-05-07] MEDS: Montelukast 10 MG Tablet PO (07:54)
[2021-05-07] MEDS: Lisinopril 10 MG Tablet PO (07:54)
[2021-05-07] MEDS: Enoxaparin 100 MG/ML Syringe 90 MG SC ×2 (07:55→22:49)
[2021-05-07] MEDS: Gabapentin 100 MG Capsule PO ×3 (07:55→17:14)
[2021-05-07] MEDS: Pantoprazole Sodium 40 MG Tablet PO ×2 (07:55→22:49)
--- NOTE | 2021-05-07 10:49 | PCM.PN.BLA ---
Progress Note Afebrile VSS Maintaining appropriate oxygen saturation on RA Discussed with nursing - no problems that need addressed Reviewed the PT/OT/ST notes Medication list reviewed. He took only 2 doses of oxycodone yesterday and has had 1 dose this morning. I discussed the appearance of the wounds with the ostomy nurse and since the wounds are fairly superficial and the granulation tissue is > 90% on both sides will not place a wound vac at this time but, will change the dressings from W/D to hydrogel covered with Adaptic to keep the wound moist once a day. This should cut down on the pain with the dressing changes. All of the lab requested yesterday from was reviewed. Unfortunately none of the hypercoagulable labs were included in what they sent. The INR today is subtherapeutic at 1.9. He continues to c/o pain in the neck, left shoulder and all over. He is not taking the Oxycodone as often as he could because he does not want to get dependent. Denies cephalgia. He was not OOB for 2 weeks prior to presenting to rehab and he had rhabdomyolysis. He has had neck pain for a few years but, it has escalated in the past year. Denies CP, SOB, lightheadedness, diarrhea. Still c/o stomach pain. Denies heartburn. He stopped drinking coffee after he was discharged in March. No wt loss. Stable since his last admission. Physical Exam Const alert and oriented x3 General Appearance: cooperative Neck Neck Narrative: The trapezius muscles are soft....no pain with massaging the muscles. No guarding. Able to flex and extend the neck. Some restriction in SB and rotation. General: normal visual inspection and trachea midline; Negative for lymphadenopathy Resp normal respiratory effort and clear to auscultation bilaterally Effort and Inspection: able to speak in complete sentences Cardio regular rate, regular rhythm, no murmurs and no gallops GI normal to inspection, nondistended, normoactive bowel sounds GI Narrative: Some discomfort with palpation of the epigastric area but, no guarding. Skin General Skin Exam: no breakdown Wounds: wounds noted Wound Narrative: The medial incision inferior pole is not filling in as well as the superior pole and the tissue is a little more pale. < 5% slough at the wound margins. No odor and no purulent drainage. no caio-wound erythema. Less swelling in the foot today. Neuro oriented x3 Neuro Narrative: slow improvement in therapy. He is very weak. Still with Left side neglect. Assessment & Plan Assessment/Plan (1) Neck pain: (2) Acute ischemic right MCA stroke: (3) Thrombocytosis: (4) History of revascularization procedure of lower extremity: (5) Acute blood loss anemia: (6) Chronic anticoagulation: (7) Cognitive dysfunction: (8) Physical debility: PLAN: 1. soft collar when doing therapy 2. K pad to the posterior neck 3. compounded arthritis cream to the posterior neck and the Left shoulder. 4. review the bone windows on the CTA of the neck he had in March with Dr. De León. 5. Get plain XRAYS of the C spine.....he has had several falls at home. No tells me that he was mostly in bed at home. He was even eating lying down and not motivated to do therapy. Personality has changed. Very forgetful. 6. Continue PT/OT/ST 7. Wants to hve plastic surgery at [facility] rather than going back up to [place] - will discuss with Dr. Perez 8. start Effexor XR 75 mg daily for pain control and depression. 9. Adjust the Coumadin. continue the Lovenox until he has a therapeutic INR 48 hours in a row and then can DC the Lovenox. Visit Charges Inpatient E&M: 38799 Subs Hosp L2
[2021-05-07] MEDS: diazePAM 2 MG Tablet PO (15:03)
[2021-05-07] MEDS: Arthritis Pain Compound 60 CLICK TUBE TOPICAL ×2 (15:04→22:51)
[2021-05-07] MEDS: HYDROmorphone 0.5 MG/0.5 ML SYRINGE IV (16:26)
[2021-05-07] MEDS: 0.9% Saline Lock 10 ML Syringe IV ×2 (16:26→23:10)
--- NOTE | 2021-05-07 17:43 | RAD_ITS ---
EXAM: XR CERVICAL SPINE, 2 OR 3 VIEWS CLINICAL INDICATION: pain -- had several falls at home TECHNIQUE: Frontal and lateral views of the cervical spine. This report was created using [employer] technology. COMPARISON: None. FINDINGS: VERTEBRAE: The odontoid process is obscured by the overlying hard palate on the open mouth view. Therefore, it is not fully evaluated by plain film. Preserved vertebral body height. No acute fracture. No spondylolisthesis. Preservation of the normal cervical lordosis. No significant facet arthropathy. DISC SPACES: Unremarkable. Disc spaces are maintained. SOFT TISSUES: Unremarkable. No prevertebral soft tissue widening. LUNG APICES: Clear. RAD/Cerv Spine 2 or 3 Views IMPRESSION: The odontoid process is obscured by the overlying hard palate on the open mouth view. Therefore, it is not fully evaluated by plain film. Electronically Signed: Austin Mcgovern MD at 20:16 EST , Service support ,
[2021-05-07 19:47] VITALS: BP 118/66; PULSE 88; RESP 14; TEMP 36.6; O2SAT 99
[2021-05-07] MEDS: Atorvastatin Calcium 40 MG Tablet PO (22:50)
[2021-05-07] MEDS: Divalproex (ER) 500 MG Tablet PO (22:50)
[2021-05-07] MEDS: Clotrimazole 1 APPLIC Tube TOPICAL (22:50)
[2021-05-08] VITALS (7 sets, daily range): BP systolic 91–126; BP diastolic 57–71; PULSE 72–80; RESP 16; TEMP 36.4–36.6; O2SAT 99; BMI 28.8
[2021-05-08] MEDS: Arthritis Pain Compound 60 CLICK TUBE TOPICAL ×3 (04:58→21:27)
[2021-05-08] MEDS: oxyCODONE 5 MG Tablet PO (04:58)
[2021-05-08 08:11] LABS: International Normalized Ratio 1.8; Prothrombin Time (Protime)PT. 20.5 SECONDS (11.7-14.9)
[2021-05-08] MEDS: Clotrimazole 1 APPLIC Tube TOPICAL ×2 (08:25→21:27)
[2021-05-08] MEDS: Senna/Docusate Sodium 1 Tablet 2 TABLET PO ×2 (08:26→21:28)
[2021-05-08] MEDS: Metoprolol(XL)Succ 25 MG Tablet PO (08:26)
[2021-05-08] MEDS: Venlafaxine XR 75 MG Capsule PO (08:26)
[2021-05-08] MEDS: Montelukast 10 MG Tablet PO (08:26)
[2021-05-08] MEDS: Gabapentin 100 MG Capsule PO ×2 (08:27→12:38)
[2021-05-08] MEDS: Clopidogrel Bisulfate 75 MG Tablet PO (08:27)
[2021-05-08] MEDS: Pantoprazole Sodium 40 MG Tablet PO ×2 (08:27→21:28)
[2021-05-08] MEDS: Enoxaparin 100 MG/ML Syringe 90 MG SC ×2 (08:27→21:28)
[2021-05-08] MEDS: Lisinopril 10 MG Tablet PO (08:29)
--- NOTE | 2021-05-08 12:37 | PN_ITS ---
Progress Note Afebrile VSS Maintaining appropriate oxygen saturation on RA Oral intake is good Discussed with nursing - continues to c/o nausea and neck pain. also c/o some lightheadedness today. Reviewed the PT/OT/ST notes - still has not attempted to walk/bear weight on the RLE. Medication list reviewed. I reviewed the bone windows on the CTA of the neck done in March with the radiologist. He has foraminal stenosis on the left......this is the likely cause of the pain in the left shoulder he was c/o yesterday. Physical Exam Const oriented x3 and no apparent distress Constitutional Narrative: Lying in bed. Resp normal respiratory effort and clear to auscultation bilaterally Effort and Inspection: able to speak in complete sentences Cardio regular rate, regular rhythm, no murmurs and no gallops Cardio Narrative: No ectopy GI normal to inspection, nondistended, normoactive bowel sounds, soft to palpation and non-tender Extremity Extremity Narrative: edema of the RLE. No edema of the LLE. The wounds are stable and healing well......may not need grafting. May be a candidate for [place]? Will have him follow up in the [facility]. If he does need a graft Dr. Perez is willing to do the surgery. Would have to transition him to heparin or Lovenox prior to surgery and DC 6-12 hours prior to scheduled surgery and then keep him in the hospital until he is therapeutic on anticoagulation again.......he is too high risk for additional thrombotic events if he is off anticoagulation. Assessment & Plan Assessment/Plan (1) Neural foraminal stenosis of cervical spine: (2) Neck pain: (3) History of fasciotomy: (4) Acute blood loss anemia: (5) Chronic anticoagulation: (6) Physical debility: (7) Cognitive dysfunction: (8) Left-sided weakness: PLAN: 1. Increase the Gabapentin to 300 mg TID 2. check orthostatics now 3. HH and BMP in the AM 4. decrease the dose of the Lisinopril to 7.5 mg daily Visit Charges Inpatient E&M: 65175 Subs Hosp L2
[2021-05-08] MEDS: 0.9% Saline Lock 10 ML Syringe IV ×2 (12:39→21:37)
[2021-05-08] MEDS: diazePAM 2 MG Tablet PO (15:16)
[2021-05-08] MEDS: Gabapentin 300 MG Capsule PO (15:16)
[2021-05-08] MEDS: HYDROmorphone 0.5 MG/0.5 ML SYRINGE IV (15:48)
[2021-05-08] MEDS: Atorvastatin Calcium 40 MG Tablet PO (21:27)
[2021-05-08] MEDS: Divalproex (ER) 500 MG Tablet PO (21:27)
[2021-05-09] MEDS: Arthritis Pain Compound 60 CLICK TUBE TOPICAL ×3 (05:09→20:00)
[2021-05-09] MEDS: Enoxaparin 100 MG/ML Syringe 90 MG SC (07:46)
[2021-05-09] MEDS: Montelukast 10 MG Tablet PO (07:48)
[2021-05-09] MEDS: Pantoprazole Sodium 40 MG Tablet PO ×2 (07:48→20:00)
[2021-05-09] MEDS: Clopidogrel Bisulfate 75 MG Tablet PO (07:48)
[2021-05-09] MEDS: Gabapentin 300 MG Capsule PO ×3 (07:48→16:48)
[2021-05-09] MEDS: Venlafaxine XR 75 MG Capsule PO (07:49)
[2021-05-09] MEDS: Senna/Docusate Sodium 1 Tablet 2 TABLET PO (07:50)
[2021-05-09 08:00] VITALS: BP 99/64
[2021-05-09] MEDS: oxyCODONE 5 MG Tablet PO ×4 (08:02→21:20)
[2021-05-09 08:42] LABS: Hematocrit 27.4 % (40-54); Hemoglobin 8.9 g/dL (13.0-16.5)
[2021-05-09 08:50] LABS: International Normalized Ratio 2.8
[2021-05-09 09:05] LABS: Anion Gap 6 (5-15); BUN 17 mg/dL (7-18); Calcium,Total 8.6 mg/dL (8.5-10.1); Chloride 106 mmol/L (98-107); Creatinine, Serum 0.85 mg/dL (0.70-1.30); EST Glomerular Filtration Rate 102 mL/min (>60); Est Glom Filt Rate - Afr Amer 123 mL/min (>60); Estimated Creatinine Clearance 106.28 ml/min; Glucose 118 mg/dL (74-106); Sodium Level 138 mmol/L (136-145)
[2021-05-09 09:30] VITALS: BP 109/75; PULSE 82; RESP 16; TEMP 36.4; O2SAT 97
[2021-05-09] MEDS: Acetaminophen 325 MG Tablet 975 MG PO (09:42)
[2021-05-09] MEDS: Lisinopril 2.5 MG Tablet 7.5 MG PO (09:44)
[2021-05-09 09:45] VITALS: PULSE 80
[2021-05-09] MEDS: Clotrimazole 1 APPLIC Tube TOPICAL ×2 (09:45→20:01)
[2021-05-09] MEDS: Metoprolol(XL)Succ 25 MG Tablet PO (09:45)
[2021-05-09] MEDS: diazePAM 2 MG Tablet PO (12:13)
[2021-05-09] MEDS: HYDROmorphone 0.5 MG/0.5 ML SYRINGE IV (13:56)
[2021-05-09] MEDS: 0.9% Saline Lock 10 ML Syringe IV (13:56)
[2021-05-09 15:17] VITALS: BMI 28.8
[2021-05-09 19:50] VITALS: BP 92/68; PULSE 82; RESP 18; TEMP 36.7; O2SAT 95; BMI 28.8
[2021-05-09] MEDS: Atorvastatin Calcium 40 MG Tablet PO (20:01)
[2021-05-09] MEDS: Divalproex (ER) 500 MG Tablet PO (20:01)
--- NOTE | 2021-05-09 23:11 | NURSING ---
1952 during clinical findings pt reports that his rt groin was hurting and that it started this hs rn aware of pts new pain and will continue to monitor. rt foot and toes are warm to the touch with toes mobile, with good capillary refill. mild edema noted to the foot and toes. pt is able to lift leg with out difficulty, with minimal pain .
--- NOTE | 2021-05-09 23:54 | NURSING ---
Reviewed and agree with APPRAISER assessment.
[2021-05-10] MEDS: Acetaminophen 325 MG Tablet 975 MG PO (01:30)
[2021-05-10] MEDS: Arthritis Pain Compound 60 CLICK TUBE TOPICAL ×3 (06:00→21:09)
[2021-05-10] MEDS: oxyCODONE 5 MG Tablet PO ×2 (06:12→16:59)
[2021-05-10 06:53] LABS: International Normalized Ratio 3.7; Prothrombin Time (Protime)PT. 36.1 SECONDS (11.7-14.9)
[2021-05-10 08:00] VITALS: BP 90/62; PULSE 69; RESP 16; TEMP 36.4; O2SAT 98
[2021-05-10] MEDS: Gabapentin 300 MG Capsule PO ×3 (08:42→16:55)
[2021-05-10 08:47] VITALS: BP 82/57; PULSE 78
[2021-05-10] MEDS: Venlafaxine XR 75 MG Capsule PO (08:47)
[2021-05-10] MEDS: Pantoprazole Sodium 40 MG Tablet PO ×2 (08:47→21:10)
[2021-05-10] MEDS: Clopidogrel Bisulfate 75 MG Tablet PO (08:47)
[2021-05-10] MEDS: Montelukast 10 MG Tablet PO (08:47)
[2021-05-10] MEDS: Clotrimazole 1 APPLIC Tube TOPICAL ×2 (08:49→21:09)
[2021-05-10] MEDS: diazePAM 2 MG Tablet PO (09:48)
[2021-05-10] MEDS: HYDROmorphone 0.5 MG/0.5 ML SYRINGE IV (10:51)
[2021-05-10 13:51] VITALS: BMI 28.8
[2021-05-10 20:45] VITALS: BP 110/78; PULSE 93; RESP 16; TEMP 36.6; O2SAT 97
[2021-05-10] MEDS: Divalproex (ER) 500 MG Tablet PO (21:09)
[2021-05-10] MEDS: 0.9% Saline Lock 10 ML Syringe IV (21:19)
[2021-05-10] MEDS: Atorvastatin Calcium 40 MG Tablet PO (21:55)
[2021-05-11 01:10] VITALS: BMI 28.8
[2021-05-11 03:19] VITALS: BMI 28.8
[2021-05-11] MEDS: Arthritis Pain Compound 60 CLICK TUBE TOPICAL ×3 (05:09→20:49)
[2021-05-11 05:17] LABS: International Normalized Ratio 3.1; Prothrombin Time (Protime)PT. 31.1 SECONDS (11.7-14.9)
[2021-05-11 07:39] VITALS: BP 119/50; PULSE 62; RESP 16; TEMP 36.2; O2SAT 95
[2021-05-11] MEDS: Clotrimazole 1 APPLIC Tube TOPICAL ×2 (08:09→20:48)
[2021-05-11 08:12] VITALS: PULSE 62
[2021-05-11] MEDS: Clopidogrel Bisulfate 75 MG Tablet PO (08:12)
[2021-05-11] MEDS: Pantoprazole Sodium 40 MG Tablet PO ×2 (08:12→20:48)
[2021-05-11] MEDS: Gabapentin 300 MG Capsule PO ×3 (08:12→16:57)
[2021-05-11] MEDS: Montelukast 10 MG Tablet PO (08:12)
[2021-05-11] MEDS: Metoprolol(XL)Succ 25 MG Tablet PO (08:12)
[2021-05-11] MEDS: oxyCODONE 5 MG Tablet PO (08:13)
[2021-05-11] MEDS: Lisinopril 2.5 MG Tablet 7.5 MG PO (08:13)
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
[2021-05-11] MEDS: Venlafaxine XR 75 MG Capsule PO (12:09)
[2021-05-11] MEDS: diazePAM 2 MG Tablet PO (13:11)
[2021-05-11] MEDS: HYDROmorphone 0.5 MG/0.5 ML SYRINGE IV (13:39)
[2021-05-11] MEDS: 0.9% Saline Lock 10 ML Syringe IV ×2 (13:42→21:14)
--- NOTE | 2021-05-11 13:52 | CASEMGMT ---
Social Work Met with patient to follow up on DC plan. Pt and IDT agree pt is not ready to DC home at this time. No' works and cannot care for pt's level of assistance at this time. The goal is for pt to gain further independence prior to discharging. In the case insurance issues DC prior to safe DC home, provided SNF list for pt to choose facilities for SW to refer to. Explained to pt insurance can choose not to cover SNF stay - in that case pt cannot pay privately. SW to order needed DME and ongoing therapy at home. Will await outcome of insurance update today. SW to continue to follow. Sharmila Colby, DRAW FIRE OPERATOR MARKETING ANALYTICS LEAD
--- NOTE | 2021-05-11 14:35 | WOUNDNOTE ---
wound photo: right medial lower leg
--- NOTE | 2021-05-11 14:35 | WOUNDNOTE ---
wound photo: right lateral lower leg
[2021-05-11 15:25] VITALS: BMI 28.8
[2021-05-11 19:40] VITALS: BP 91/56; PULSE 68; RESP 16; TEMP 36.8; O2SAT 98
[2021-05-11] MEDS: predniSONE 20 MG Tablet 60 MG PO (20:47)
[2021-05-11] MEDS: Atorvastatin Calcium 40 MG Tablet PO (20:49)
[2021-05-11] MEDS: Divalproex (ER) 500 MG Tablet PO (20:49)
[2021-05-12] MEDS: Arthritis Pain Compound 60 CLICK TUBE TOPICAL ×3 (05:58→20:59)
[2021-05-12] MEDS: Clotrimazole 1 APPLIC Tube TOPICAL ×2 (05:59→20:59)
[2021-05-12 07:53] VITALS: BP 93/62; PULSE 82; RESP 16; TEMP 36.4; O2SAT 98
[2021-05-12] MEDS: Senna/Docusate Sodium 1 Tablet 2 TABLET PO (08:34)
[2021-05-12 08:35] VITALS: PULSE 82
[2021-05-12] MEDS: Venlafaxine XR 75 MG Capsule PO (08:35)
[2021-05-12] MEDS: oxyCODONE 5 MG Tablet PO (08:35)
[2021-05-12] MEDS: Metoprolol(XL)Succ 25 MG Tablet PO (08:35)
[2021-05-12] MEDS: Gabapentin 300 MG Capsule PO ×3 (08:35→16:56)
[2021-05-12] MEDS: predniSONE 20 MG Tablet 60 MG PO (08:35)
[2021-05-12] MEDS: Clopidogrel Bisulfate 75 MG Tablet PO (08:36)
[2021-05-12] MEDS: Pantoprazole Sodium 40 MG Tablet PO ×2 (08:36→21:00)
[2021-05-12] MEDS: Montelukast 10 MG Tablet PO (08:36)
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
[2021-05-12 13:07] LABS: International Normalized Ratio 3.3; Prothrombin Time (Protime)PT. 32.5 SECONDS (11.7-14.9)
[2021-05-12] MEDS: Acetaminophen 325 MG Tablet 975 MG PO ×2 (13:53→21:00)
[2021-05-12 16:39] VITALS: BMI 28.8
[2021-05-12] MEDS: diazePAM 2 MG Tablet PO (16:55)
[2021-05-12] MEDS: HYDROmorphone 0.5 MG/0.5 ML SYRINGE IV (17:30)
[2021-05-12] MEDS: 0.9% Saline Lock 10 ML Syringe IV (17:31)
[2021-05-12 19:32] VITALS: BP 103/65; PULSE 99; RESP 16; TEMP 36.8; O2SAT 98
[2021-05-12 21:00] VITALS: PULSE 99; RESP 16; O2SAT 98; BMI 28.8
[2021-05-12] MEDS: Atorvastatin Calcium 40 MG Tablet PO (21:01)
[2021-05-12] MEDS: Divalproex (ER) 500 MG Tablet PO (21:02)
--- NOTE | 2021-05-13 03:35 | NURSING ---
Reviewed and agree with PERSONAL FINANCIAL COUNSELOR documentation and charting.
[2021-05-13] MEDS: oxyCODONE 5 MG Tablet PO ×2 (05:55→14:16)
[2021-05-13] MEDS: Clotrimazole 1 APPLIC Tube TOPICAL ×2 (05:55→21:17)
[2021-05-13] MEDS: Arthritis Pain Compound 60 CLICK TUBE TOPICAL ×3 (05:55→21:17)
[2021-05-13 06:03] LABS: Prothrombin Time (Protime)PT. 39.9 SECONDS (11.7-14.9)
[2021-05-13] MEDS: Acetaminophen 325 MG Tablet 975 MG PO ×3 (06:24→21:15)
[2021-05-13 06:42] LABS: International Normalized Ratio 4.2
[2021-05-13 07:27] VITALS: BP 91/55; PULSE 76; RESP 16; TEMP 36.2; O2SAT 94
[2021-05-13] MEDS: Clopidogrel Bisulfate 75 MG Tablet PO (07:57)
[2021-05-13] MEDS: Pantoprazole Sodium 40 MG Tablet PO ×2 (07:57→21:17)
[2021-05-13] MEDS: Venlafaxine XR 75 MG Capsule PO (07:57)
[2021-05-13] MEDS: Gabapentin 300 MG Capsule PO ×3 (07:57→16:01)
[2021-05-13 07:58] VITALS: PULSE 76
[2021-05-13] MEDS: Metoprolol(XL)Succ 25 MG Tablet PO (07:58)
[2021-05-13] MEDS: Montelukast 10 MG Tablet PO (07:58)
--- NOTE | 2021-05-13 10:09 | PCM.PN.BLA ---
Progress Note AF VSS - the BP is on the low side but, he s asymptomatic and denies lightheadedness. Good intake Maintaining appropriate oxygen saturation on RA No bleeding form the mouth, nose or anus. No bruising. INR is 4.2 today.......likely due to the interaction between Effexor and Warfarin.......rather than to continue to adjustdown will DC the Effexor and start Remeon Hold the Warfarin today and recheck the PT/INR in the AM. Have hime eat a salad with lunch and supper today. HRRR Lungs -CTA No shoulder pain today and the neck is better as well. 1. coagulopathy 2. chronic anticoagulation with Warfarin 3. INR is too high today. Will have him eat a salad today with lunch and supper. 4. Check INR again in the AM and do not restart Warfarin until the INR is <3 5. DC Effexor and start Remeron 15 mg at HS tonight. Visit Charges Inpatient E&M: 08982 Subs Hosp L1
[2021-05-13] MEDS: predniSONE 20 MG Tablet 60 MG PO (12:05)
[2021-05-13 14:47] VITALS: BMI 28.8
[2021-05-13] MEDS: diazePAM 2 MG Tablet PO (16:01)
[2021-05-13] MEDS: HYDROmorphone 0.5 MG/0.5 ML SYRINGE IV (18:14)
[2021-05-13] MEDS: 0.9% Saline Lock 10 ML Syringe IV ×2 (18:14→21:14)
[2021-05-13 19:19] VITALS: BP 121/63; PULSE 74; RESP 16; TEMP 36.6; O2SAT 97
[2021-05-13] MEDS: Mirtazapine 15 MG Tablet PO (21:17)
[2021-05-13] MEDS: Divalproex (ER) 500 MG Tablet PO (21:18)
[2021-05-13] MEDS: Atorvastatin Calcium 40 MG Tablet PO (21:18)
[2021-05-13 21:27] VITALS: BMI 28.8
[2021-05-13 22:00] VITALS: PULSE 79; RESP 16; O2SAT 96
[2021-05-14] MEDS: Clotrimazole 1 APPLIC Tube TOPICAL ×2 (05:45→20:53)
[2021-05-14] MEDS: Acetaminophen 325 MG Tablet 975 MG PO ×3 (05:45→20:52)
[2021-05-14] MEDS: Arthritis Pain Compound 60 CLICK TUBE TOPICAL ×3 (05:46→20:54)
[2021-05-14] MEDS: oxyCODONE 5 MG Tablet PO ×2 (06:38→12:48)
[2021-05-14 06:54] LABS: International Normalized Ratio 3.4; Prothrombin Time (Protime)PT. 33.2 SECONDS (11.7-14.9)
[2021-05-14 07:38] VITALS: BP 109/73; PULSE 68; RESP 16; TEMP 36.2; O2SAT 95
[2021-05-14] MEDS: Gabapentin 300 MG Capsule PO ×3 (07:53→18:10)
[2021-05-14 07:54] VITALS: PULSE 68
[2021-05-14] MEDS: Pantoprazole Sodium 40 MG Tablet PO ×2 (07:54→20:53)
[2021-05-14] MEDS: Clopidogrel Bisulfate 75 MG Tablet PO (07:54)
[2021-05-14] MEDS: Montelukast 10 MG Tablet PO (07:54)
[2021-05-14] MEDS: Metoprolol(XL)Succ 25 MG Tablet PO (07:54)
[2021-05-14] MEDS: predniSONE 20 MG Tablet 60 MG PO (07:54)
--- NOTE | 2021-05-14 11:21 | PCM.PN.BLA ---
Progress Note Castillo was seen on team rounds today. His fianc?e was present in the room. All questions were answered to their satisfaction. Afebrile VSS-blood pressure has improved with discontinuation of lisinopril. Last evening the blood pressure was 121/63 and this morning it is 109/73. He denies lightheadedness. Maintaining appropriate oxygen saturation on RA Oral intake is adequate Weight is down 2 pounds in the past week. Discussed with nursing - no problems that need addressed Reviewed the PT/OT/ST notes - ST feels his memory is actually not that impaired but, he does not attend well. He did not do well in school and tells me he has ADD. He has never been medicated. He has been very motivated this week and has really made some progress with therapy. Medication list reviewed. All lab was personally reviewed. The INR today is 3.4, down from 4.2 yesterday. Coumadin was held yesterday and will give 2 mg today and recheck the INR in the AM. The Prednisone has worked very well and he denies neck pain and L shoulder pain today. He denies CP, SOB, palpitations, BENTLEY. The pain in the left leg is no longer inhibiting performance in therapy since he has been taking the Oxycodone prior to therapy. He had a hard time sleeping last night.....more likely than not due to high dose Prednisone. Physical Exam Const alert, oriented x3 and no apparent distress Constitutional Narrative: He often does not allow other people to finish a sentence before he is talking and he is not attending to what is being said. General Appearance: cooperative Resp clear to auscultation bilaterally Cardio regular rate, regular rhythm, no murmurs and no gallops Cardio Narrative: no ectopy GI normal to inspection, nondistended, normoactive bowel sounds, soft to palpation and non-tender Extremity no pedal edema Extremity Narrative: Calf tenderness only on the R due to the fasciotomy scars. Peripheral Pulses: Yes pulses 2+ throughout Skin Wounds: wounds noted Wound Narrative: The incisions on the R leg are healing. There is 100% granulation tissue BL and no caio-wound erythema or warmth to touch. There is no purulent DC. The wounds are almost even with the surrounding skin now. The ankle edema is better. Assessment & Plan Assessment/Plan (1) Neural foraminal stenosis of cervical spine: (2) Neck pain: (3) History of fasciotomy: (4) Clotting disorder: (5) Chronic anticoagulation: (6) Physical debility: (7) Attention and concentration deficit: PLAN: 1. Will try to improve attention with addition of Wellbutrin XL to drug regimen. Avoid stimulants due to cardiac and cerebrovascular disease. DC Remeron and add PRN Ambien at HS for insomnia while on Prednisone 2. Lab ordered for tomorrow 3. Give 2 mg Warfarin today and recheck PT/INR in the AM 4. Continue therapy. He is making good progress and I think we will be able to get him home at [place] from rehab instead of and ECF with another 10-14 days. Visit Charges Inpatient E&M: 99118 Subs Hosp L2
--- NOTE | 2021-05-14 13:53 | CASEMGMT ---
Social Work IDT met with patient and no' for Team meeting. Discussed patient's progress in PT/OT/ST and nursing. Pt progressing well. Having increased motivation. identified possible ADD and started on medication to assist with inattention and comprehension. Explained [facility] insurance with [facility]D 05/18 and continued stay is not guaranteed. No' requested [facility] SNF list - provided. Explained insurance may not cover SNF stay, in which case pt would DC home, but would still like an alternative plan in place, if it is needed. No' to notify this worker of SNF choices to refer to. If pt to DC home, SW to order HHC and DME needs. SW to continue to follow. Sharmila Colby, BAKERY ASSISTANT CLINICAL RN LIAISON
[2021-05-14] MEDS: buPROPion (XL) 150 MG TABLET.XL PO (13:56)
[2021-05-14] MEDS: diazePAM 2 MG Tablet PO (15:26)
[2021-05-14 16:31] VITALS: BMI 28.8
[2021-05-14] MEDS: HYDROmorphone 0.5 MG/0.5 ML SYRINGE IV (16:54)
[2021-05-14] MEDS: Jantoven 2 MG Tablet PO (18:10)
[2021-05-14 19:20] VITALS: BP 120/77; PULSE 89; RESP 18; TEMP 37.1; O2SAT 97
[2021-05-14] MEDS: Divalproex (ER) 500 MG Tablet PO (20:54)
[2021-05-14] MEDS: Zolpidem Tartrate 5 MG Tablet PO (20:54)
[2021-05-14] MEDS: Atorvastatin Calcium 40 MG Tablet PO (20:54)
[2021-05-15] MEDS: oxyCODONE 5 MG Tablet PO ×3 (05:33→17:49)
[2021-05-15] MEDS: Clotrimazole 1 APPLIC Tube TOPICAL ×2 (05:34→21:28)
[2021-05-15] MEDS: Acetaminophen 325 MG Tablet 975 MG PO ×3 (05:34→21:30)
[2021-05-15] MEDS: Arthritis Pain Compound 60 CLICK TUBE TOPICAL ×3 (05:35→21:29)
[2021-05-15 05:43] LABS: Hematocrit 27.4 % (40-54); Hemoglobin 8.6 g/dL (13.0-16.5); Mean Corp Hgb Conc 31.4 g/dL (32-36); Mean Corpuscular Hgb 31.4 pg (27.0-32.0); Mean Platelet Vol. 8.4 fl (6.2-12.0); Platelet Count 452 K/mm3 (150-450); RBC Distribution Width CV 15.1 % (11.6-14.6); RBC Distribution Width SD 54.2 fl (35.1-43.9); Red Blood Count 2.74 M/mm3 (4.6-6.2); White Blood Count 9.3 K/mm3 (4.4-11.0)
[2021-05-15 06:22] LABS: Anion Gap 5 (5-15); BUN 23 mg/dL (7-18); Calcium,Total 8.5 mg/dL (8.5-10.1); Chloride 108 mmol/L (98-107); Creatinine, Serum 0.92 mg/dL (0.70-1.30); EST Glomerular Filtration Rate 93 mL/min (>60); Est Glom Filt Rate - Afr Amer 113 mL/min (>60); Estimated Creatinine Clearance 98.19 ml/min; Glucose 89 mg/dL (74-106); Potassium 3.9 mmol/L (3.5-5.1); Sodium Level 142 mmol/L (136-145)
[2021-05-15 07:40] VITALS: BP 115/67; PULSE 62; RESP 12; TEMP 36.7; O2SAT 98
[2021-05-15] MEDS: Gabapentin 300 MG Capsule PO ×3 (08:00→17:49)
[2021-05-15 08:01] VITALS: PULSE 62
[2021-05-15] MEDS: Pantoprazole Sodium 40 MG Tablet PO ×2 (08:01→21:31)
[2021-05-15] MEDS: Montelukast 10 MG Tablet PO (08:01)
[2021-05-15] MEDS: buPROPion (XL) 150 MG TABLET.XL PO (08:01)
[2021-05-15] MEDS: Metoprolol(XL)Succ 25 MG Tablet PO (08:01)
[2021-05-15] MEDS: predniSONE 20 MG Tablet 50 MG PO (08:01)
[2021-05-15] MEDS: Clopidogrel Bisulfate 75 MG Tablet PO (08:01)
--- NOTE | 2021-05-15 11:16 | PCM.PN.BLA ---
Progress Note Afebrile Vital signs stable Maintaining appropriate oxygen saturation on room air Good oral intake Reviewed the PT/OT notes. All lab was personally reviewed. The white blood cell count is within normal limits at 9.3. Hemoglobin is stable at 8.6. Platelet count is still mildly elevated at 452,000. The INR is 2.7 today. The BUN is 23 with a creatinine of 0.92. Stool is Hemoccult positive. He is on a PPI BID for GERD. The epigastric pain he had been having has resolved. Denies BENTLEY, lightheadedness, CP, SOB, palpitations. The neck pain and the Left shoulder pain are much better since the steroids. Physical Exam Const alert, oriented x3 and no apparent distress General Appearance: cooperative and comfortable Resp clear to auscultation bilaterally Cardio regular rate and regular rhythm Cardio Narrative: no ectopy GI normal to inspection, nondistended, normoactive bowel sounds, soft to palpation and non-tender GI Narrative: BS's are not hyperactive. Has had no diarrhea and the stool is brown Extremity Extremity Narrative: the swelling in the L leg has been decreasing. The fasciotomies are ramirez and there is no caio-incisional erythema, no purulent discharge and no odor. The base of the wound is 100% granulating and there is evidence of new epithelialization at the margins of both wounds. Skin General Skin Exam: no breakdown Rashes: no rashes Assessment & Plan Assessment/Plan (1) Depression: (2) Neural foraminal stenosis of cervical spine: (3) Acute ischemic right MCA stroke: (4) History of fasciotomy: (5) Neck pain: (6) History of revascularization procedure of lower extremity: (7) Clotting disorder: PLAN: 1. continue the current drug regimen - he is currently on a Prednisone taper 2. Continue Aquacel AG with adaptic to the wounds on the RLE 3. Recheck the HH in a few days 4. If the HH drops while on Protonix 40 mg BID will need to have endoscopy to determine the source of the hemoccult + stool because he must remain on an anticoagulant. Although I do not know the clotting disorder he has had a CVA, AR and an aortic occlusion in the past 2 months and he needs to be on an anticoagulant. He had the aortic occlusion while on DAPT 5. Continue therapy Visit Charges Inpatient E&M: 10519 Subs Hosp L2
[2021-05-15 11:17] LABS: International Normalized Ratio 2.7; Prothrombin Time (Protime)PT. 27.5 SECONDS (11.7-14.9)
[2021-05-15] MEDS: diazePAM 2 MG Tablet PO (14:11)
[2021-05-15] MEDS: HYDROmorphone 0.5 MG/0.5 ML SYRINGE IV (14:54)
[2021-05-15 17:00] VITALS: BMI 28.8
[2021-05-15 20:23] VITALS: BP 133/80; PULSE 82; RESP 16; TEMP 36.9; O2SAT 96
[2021-05-15] MEDS: Zolpidem Tartrate 5 MG Tablet PO (21:27)
[2021-05-15] MEDS: 0.9% Saline Lock 10 ML Syringe IV (21:28)
[2021-05-15] MEDS: Divalproex (ER) 500 MG Tablet PO (21:29)
[2021-05-15] MEDS: Atorvastatin Calcium 40 MG Tablet PO (21:31)
[2021-05-16 03:35] VITALS: BMI 28.8
[2021-05-16] MEDS: Clotrimazole 1 APPLIC Tube TOPICAL ×2 (06:35→20:43)
[2021-05-16 06:36] LABS: International Normalized Ratio 2.7; Prothrombin Time (Protime)PT. 27.8 SECONDS (11.7-14.9)
[2021-05-16] MEDS: Arthritis Pain Compound 60 CLICK TUBE TOPICAL ×3 (06:36→20:44)
[2021-05-16] MEDS: Acetaminophen 325 MG Tablet 975 MG PO ×3 (06:36→20:42)
[2021-05-16] MEDS: oxyCODONE 5 MG Tablet PO ×3 (06:51→20:47)
[2021-05-16 07:46] VITALS: BP 105/73; PULSE 64; RESP 16; TEMP 36.6; O2SAT 94
[2021-05-16] MEDS: predniSONE 20 MG Tablet 50 MG PO (08:14)
[2021-05-16] MEDS: Gabapentin 300 MG Capsule PO ×3 (08:14→18:06)
[2021-05-16 08:16] VITALS: PULSE 64
[2021-05-16] MEDS: Metoprolol(XL)Succ 25 MG Tablet PO (08:16)
[2021-05-16] MEDS: buPROPion (XL) 150 MG TABLET.XL PO (08:17)
[2021-05-16] MEDS: Pantoprazole Sodium 40 MG Tablet PO ×2 (08:17→20:43)
[2021-05-16] MEDS: Montelukast 10 MG Tablet PO (08:17)
[2021-05-16] MEDS: Clopidogrel Bisulfate 75 MG Tablet PO (08:18)
[2021-05-16] MEDS: diazePAM 2 MG Tablet PO (13:32)
[2021-05-16 14:12] VITALS: BMI 28.8
[2021-05-16] MEDS: 0.9% Saline Lock 10 ML Syringe IV ×2 (14:33→20:42)
[2021-05-16] MEDS: HYDROmorphone 0.5 MG/0.5 ML SYRINGE IV (14:34)
[2021-05-16 19:25] VITALS: BP 114/68; PULSE 77; RESP 18; TEMP 36.3; O2SAT 96
[2021-05-16] MEDS: Atorvastatin Calcium 40 MG Tablet PO (20:43)
[2021-05-16] MEDS: Divalproex (ER) 500 MG Tablet PO (20:43)
[2021-05-16] MEDS: Zolpidem Tartrate 5 MG Tablet PO (20:44)
[2021-05-17] MEDS: Acetaminophen 325 MG Tablet 975 MG PO ×3 (05:16→21:13)
[2021-05-17] MEDS: oxyCODONE 5 MG Tablet PO ×3 (05:16→21:14)
[2021-05-17] MEDS: Clotrimazole 1 APPLIC Tube TOPICAL ×2 (05:17→21:12)
[2021-05-17] MEDS: Arthritis Pain Compound 60 CLICK TUBE TOPICAL ×3 (05:17→21:10)
[2021-05-17] MEDS: predniSONE 20 MG Tablet 50 MG PO (07:29)
[2021-05-17 07:30] VITALS: PULSE 77
[2021-05-17] MEDS: Pantoprazole Sodium 40 MG Tablet PO ×2 (07:30→21:12)
[2021-05-17] MEDS: Metoprolol(XL)Succ 25 MG Tablet PO (07:30)
[2021-05-17] MEDS: Montelukast 10 MG Tablet PO (07:30)
[2021-05-17] MEDS: buPROPion (XL) 150 MG TABLET.XL PO (07:31)
[2021-05-17] MEDS: Clopidogrel Bisulfate 75 MG Tablet PO (07:31)
[2021-05-17] MEDS: Gabapentin 300 MG Capsule PO ×3 (07:31→16:31)
[2021-05-17] MEDS: diazePAM 2 MG Tablet PO (07:47)
[2021-05-17 07:59] VITALS: BP 100/68; PULSE 77; RESP 16; TEMP 36.7; O2SAT 99
[2021-05-17] MEDS: 0.9% Saline Lock 10 ML Syringe IV (09:13)
[2021-05-17 09:16] LABS: Prothrombin Time (Protime)PT. 30.5 SECONDS (11.7-14.9)
[2021-05-17] MEDS: HYDROmorphone 0.5 MG/0.5 ML SYRINGE IV (09:22)
--- NOTE | 2021-05-17 11:35 | PCM.PN.BLA ---
Progress Note Afebrile VSS Maintaining appropriate oxygen saturation on RA Oral intake is good Discussed with nursing - no problems that need addressed Reviewed the PT/OT/ST notes Medication list reviewed. INR is 3 today. 2.7 yesterday Castillo states his pain is well controlled and he is sleeping well. Appetite is good. He has no complaints today. He denies neck pain, cephalgia, Left shoulder pain. Physical Exam Const alert, oriented x3 and no apparent distress Constitutional Narrative: He is less anxious than he was and the speech is less pressured. He is not constantly interrupting and trying to talk over me. Seems calm. General Appearance: cooperative, comfortable, well kempt and well developed Resp clear to auscultation bilaterally Resp Narrative: Denies craving cigarettes Cardio regular rate, regular rhythm, no murmurs and no gallops GI normal to inspection, nondistended, normoactive bowel sounds, soft to palpation and non-tender Extremity no calf tenderness Skin General Skin Exam: no breakdown Assessment & Plan Assessment/Plan (1) Attention and concentration deficit: PLAN: Seems to be improving with Wellbutrin and this will also help with the depression due to recent hospitalizations, stroke, PR, occlusion of the aorta with compartment syndrome and fasciotomy RLE (2) Neural foraminal stenosis of cervical spine: PLAN: Continue the Gabapentin and the steroid taper (3) Neck pain: PLAN: resolved with Prednisone (4) History of fasciotomy: PLAN: Healing very well. I do not think he is going to need plastic surgery. He is going to follow up in the wound care center (5) History of revascularization procedure of lower extremity: (6) Secondary rhabdomyolysis: (7) Clotting disorder: PLAN: Continue to adjust the Warfarin to keep the INR between 2.5-3. (8) Heme positive stool: PLAN: Continue Protonix 40 mg p.o. twice daily. He denies abdominal pain or nausea at this time. Check an H&H in the a.m. (9) Depression: PLAN: Continue Wellbutrin Visit Charges Inpatient E&M: 11412 Subs Hosp L2
[2021-05-17 12:52] VITALS: BMI 28.8
[2021-05-17 19:16] VITALS: BP 128/83; PULSE 70; RESP 18; TEMP 36.8; O2SAT 96
[2021-05-17] MEDS: Zolpidem Tartrate 5 MG Tablet PO (21:10)
[2021-05-17] MEDS: Divalproex (ER) 500 MG Tablet PO (21:11)
[2021-05-17] MEDS: Atorvastatin Calcium 40 MG Tablet PO (21:12)
[2021-05-18 02:41] VITALS: BMI 28.8
[2021-05-18] MEDS: Acetaminophen 325 MG Tablet 975 MG PO ×3 (05:16→21:04)
[2021-05-18] MEDS: oxyCODONE 5 MG Tablet PO ×3 (05:17→16:05)
[2021-05-18 06:11] LABS: International Normalized Ratio 3.2
[2021-05-18] MEDS: Arthritis Pain Compound 60 CLICK TUBE TOPICAL ×3 (06:55→21:03)
[2021-05-18] MEDS: Clotrimazole 1 APPLIC Tube TOPICAL ×2 (06:56→21:04)
[2021-05-18 07:40] VITALS: BP 102/66; PULSE 78; RESP 18; TEMP 36.6; O2SAT 97
[2021-05-18] MEDS: predniSONE 20 MG Tablet 40 MG PO (08:18)
[2021-05-18] MEDS: Gabapentin 300 MG Capsule PO ×3 (08:18→17:14)
[2021-05-18] MEDS: Clopidogrel Bisulfate 75 MG Tablet PO (08:18)
[2021-05-18] MEDS: Pantoprazole Sodium 40 MG Tablet PO ×2 (08:18→21:04)
[2021-05-18 08:19] VITALS: PULSE 78
[2021-05-18] MEDS: Montelukast 10 MG Tablet PO (08:19)
[2021-05-18] MEDS: buPROPion (XL) 150 MG TABLET.XL PO (08:19)
[2021-05-18] MEDS: Metoprolol(XL)Succ 25 MG Tablet PO (08:19)
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
[2021-05-18 11:15] LABS: Hematocrit 32.7 % (40-54)
--- NOTE | 2021-05-18 14:08 | CASEMGMT ---
Social Work Discussed with Team pt's progress. Pt progressing well and Team agreeable pt would be safe to DC home if he continues to make improvements. Spoke with pt and updated he does not need SNF. Pt happy. SW to order needed therapy and DME. Will continue to follow. Sharmila Colby, CEMENTER BIT T[employer]PER
[2021-05-18 17:00] VITALS: BMI 28.8
--- NOTE | 2021-05-18 17:48 | NURSING ---
Reviewed and agree with LPNs charting and documentation
[2021-05-18 19:14] VITALS: BP 110/73; PULSE 79; RESP 17; TEMP 36.6; O2SAT 97
[2021-05-18 20:51] VITALS: BMI 28.8
[2021-05-18 20:52] VITALS: PULSE 75; RESP 15
[2021-05-18] MEDS: Zolpidem Tartrate 5 MG Tablet PO (21:03)
[2021-05-18] MEDS: Atorvastatin Calcium 40 MG Tablet PO (21:04)
[2021-05-18] MEDS: Divalproex (ER) 500 MG Tablet PO (21:04)
[2021-05-19] MEDS: Arthritis Pain Compound 60 CLICK TUBE TOPICAL ×3 (05:37→21:07)
[2021-05-19] MEDS: Clotrimazole 1 APPLIC Tube TOPICAL ×2 (05:37→21:07)
[2021-05-19] MEDS: Acetaminophen 325 MG Tablet 975 MG PO ×3 (05:37→21:08)
[2021-05-19 06:07] LABS: International Normalized Ratio 3.1; Prothrombin Time (Protime)PT. 31.4 SECONDS (11.7-14.9)
[2021-05-19 07:17] VITALS: BP 127/63; PULSE 75; RESP 16; TEMP 36.3; O2SAT 97
[2021-05-19 07:37] VITALS: BP 127/63; PULSE 75
[2021-05-19] MEDS: Clopidogrel Bisulfate 75 MG Tablet PO (07:37)
[2021-05-19] MEDS: Pantoprazole Sodium 40 MG Tablet PO ×2 (07:37→21:08)
[2021-05-19] MEDS: Gabapentin 300 MG Capsule PO ×3 (07:37→16:05)
[2021-05-19] MEDS: Metoprolol(XL)Succ 25 MG Tablet PO (07:37)
[2021-05-19] MEDS: predniSONE 20 MG Tablet 40 MG PO (07:37)
[2021-05-19] MEDS: Montelukast 10 MG Tablet PO (07:37)
[2021-05-19] MEDS: buPROPion (XL) 150 MG TABLET.XL PO (07:38)
[2021-05-19] MEDS: oxyCODONE 5 MG Tablet PO ×2 (10:42→16:06)
--- NOTE | 2021-05-19 11:38 | WOUNDNOTE ---
wound photo: right lateral lower leg
--- NOTE | 2021-05-19 11:38 | WOUNDNOTE ---
wound photo: right medial lower leg
[2021-05-19 14:39] VITALS: BMI 28.8
[2021-05-19 20:51] VITALS: BP 104/71; PULSE 71; RESP 16; TEMP 36.8; O2SAT 95
[2021-05-19 20:54] VITALS: BMI 28.8
[2021-05-19 20:58] VITALS: PULSE 77; RESP 16; O2SAT 96
[2021-05-19] MEDS: Zolpidem Tartrate 5 MG Tablet PO (21:06)
[2021-05-19] MEDS: Atorvastatin Calcium 40 MG Tablet PO (21:07)
[2021-05-19] MEDS: Divalproex (ER) 500 MG Tablet PO (21:07)
[2021-05-20] MEDS: oxyCODONE 5 MG Tablet PO ×2 (06:16→13:12)
[2021-05-20] MEDS: Arthritis Pain Compound 60 CLICK TUBE TOPICAL ×2 (06:19→13:12)
[2021-05-20] MEDS: Acetaminophen 325 MG Tablet 975 MG PO ×2 (06:19→13:12)
[2021-05-20] MEDS: Clotrimazole 1 APPLIC Tube TOPICAL (06:20)
[2021-05-20 07:34] VITALS: BP 106/76; PULSE 66; RESP 16; TEMP 36.3; O2SAT 97
[2021-05-20] MEDS: Gabapentin 300 MG Capsule PO ×2 (08:01→11:39)
[2021-05-20] MEDS: predniSONE 20 MG Tablet 40 MG PO (08:02)
[2021-05-20] MEDS: Montelukast 10 MG Tablet PO (08:02)
[2021-05-20] MEDS: buPROPion (XL) 150 MG TABLET.XL PO (08:02)
[2021-05-20] MEDS: Clopidogrel Bisulfate 75 MG Tablet PO (08:02)
[2021-05-20] MEDS: Pantoprazole Sodium 40 MG Tablet PO (08:02)
[2021-05-20 08:03] VITALS: BP 106/76; PULSE 66
[2021-05-20] MEDS: Metoprolol(XL)Succ 25 MG Tablet PO (08:03)
--- NOTE | 2021-05-20 09:53 | PCM.DC ---
Discharge Instructions Diet Discharge Diet: Low fat / Low cholesterol and - (No added salt......try to keep the salt intake around 2-4 grams a day. No caffeine. ) Activity Discharge Activity: May Not Drive, May Shower and - (Use a walker or a cane when ambulating, hyacinth when you are outside the house. It will help with balance and prevent falls.) May resume sexual activity in: No Restrictions Weight Bearing Status: Full weight bearing Lifting Restrictions: No more than 5-10 lbs Keep extremity elevated above heart level: Right Leg Dressing / Incision Call your doctor if your incision/area has: Continuous Slow Oozing, Sudden Increased Bleeding, Increased Pain/ Swelling, Increased Redness and Foul Smelling Discharge Call your doctor if you observe: Fever of 101 or Higher, Coldness, Increased Pain, Fainting spells, Chest pain, Increased palpitations (irregular heartbeat) and Uncontrolled pain Change Dressing in: 1 day Remove Dressing in: 1 day Cleanse incision/area with: Soap & Water and Keep Dressing Clean & Dry Additional Dressing/Incision Instructions:: Cleanse the wounds daily with soap and water or saline. Pat the area around the wound dry. Apply the dressing. Change once daily. Follow Up Care Please Follow Up With: Kristie Magdaleno MD When: within 7-10 days post DC Test Results: Test results from this visit will be discussed in further detail at your follow-up appointment, if applicable. 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 You have done GREAT. We appreciate your cooperation and your motivation. A LOT has happened in the past few months. First a stroke, followed by a heart attack and an angioplasty, followed by a total occlusion of the aorta which is the largest artery in the abdomen and extending into the legs. You R leg was without oxygen for > 6 hours and the muscle cells started to causing a lot of swelling and pain. You had to have incisions in the muscles in the lower R leg to relieve the pressure. WOW! You are now on a blood thinner called Warfarin to prevent any further clots. Patients on Warfarin have to have regular lab tests to check the clotting time. We check a test called an INR. The INR must be kept between 2 and 3.5. Less than 2 and you are at risk for making more clots. Over 3.5 you are at risk for bleeding (from the gums, nose, GI tract, and into the head. You should avoid activities where you could possibly hit your hit. That means no brody diving, hang gliding, skate boarding, football, bungee jumping, etc. Warfarin interacts with many other drugs that can either inhibit the warfarin and make the INR too low OR potentiate the Warfarin and make the bleeding time too high putting you at risk for bleeding. Even over the counter drugs can do this. If you have ANY doubt about a new medication interfering with the Warfarin ASK the PHARMACIST AT YOUR DRUGSTORE. 2. I do not know why your blood clots more easily than it should. Dr. Jennifer Rg from vascular medicine is going to help figure that out. You have a virtual appt with her on your phone or laptop on 05/21/21 at 8 AM. This appt is VERY IMPORTANT. Do NOT miss it. 3. There are neurologists closer to where you live than [place] so if you do not want to drive to [place] to follow up with neurology we can try someone closer. You will also need to follow up with a transportation museum helper. This will likely not be often. The heart Group here at the hospital is good and you could follow up with them if you desire or pick a transportation museum helper you would like to see close to where you live. 4. Blood clotting disorders can come from a disease you inherited but, they can also come from a cancer that we have not yet discovered.........do NOT blow this off.......we have to find out why your blood is clotting so easily. 5. The pain in the neck and the L shoulder is coming from a pinched nerve in your neck. You will need to at some point see a orthopedic surgeon or a neurosurgeon if you need surgery to fix it. You should not have surgery for the next 3-6 months if at all possible. You must first heal from all the problems you have had in the past 2-3 months. There are 2 pain management doctors in [place]. Dr. Henderson and Dr. Arauz. They may be able to help you. 6. You have attention deficit. We have started you on a medication called Wellbutrin that seems to be helping you focus and pay attention better. You also seem calmer. I am keeping you on this medication at [facility] because being able to focus is important when you have to follow up with other doctors and keep appts and be able to remember what they say to you. 7. You are on a lot of medication. They are all necessary to keep you functioning at your best and keep you from having more blood clots, strokes, heart attacks. Do NOT stop any medication without talking to Dr. Magdaleno. 8. I think the wounds are going to heal without surgery.......this is great news because we will not have to stop your WARFARIN SO YOU CAN HAVE SURGERY....THIS COULD PUT YOU AT RISK FOR ANOTHER CLOT. You are going to be following up in the wound care center here in [place]. You will be seen by Rae Zhou who is a physicians endodontic assistant who works with Dr. Perez who is the plastic surgeon here. She is very good and she may want to cover the wound with actual skin from a donor....there will be no cutting involved. You just lay the skin on the wound and secure it with glue. I have worked in the wound care center in the past and used this product and it works great to heal wounds faster. 8. I am glad to have had more time with you this admission Joaquín. I have enjoyed getting to know you better and seeing you do so well. If you have any questions after you leave wound care please do not hesitate to call me. Office [phone] . Be well my friend and hang in there.......we have to find out why you are clotting and this may take some time. In the meantime you are protected by Warfarin. Discharge Orders/Prescriptions Prescriptions: New gabapentin 300 mg Capsule 300 mg PO TIDCM Qty: 90 RF: 0 pantoprazole 40 mg Tablet,Delayed Release (Dr/Ec) 40 mg PO BID Qty: 60 RF: 0 metoprolol succinate 25 mg Tablet Extended Release 24 Hr 25 mg PO DAILY Qty: 30 RF: 0 Arthritis Pain Compound 3 click topical TID Qty: 0 RF: 0 clopidogrel 75 mg Tablet 75 mg PO DAILY Qty: 30 RF: 0 bupropion HCl 150 mg Tablet Extended Release 24 Hr 150 mg PO DAILY Qty: 30 RF: 0 warfarin 2 mg tablet See Rx Instructions .ROUTE .COMPLEX Qty: 53 RF: 0 prednisone 10 mg tablet See Rx Instructions .ROUTE .COMPLEX Qty: 27 RF: 0 oxycodone 10 mg tablet 10 mg PO Q4H PRN (Reason: pain) 7 Days Qty: 35 RF: 0 Continued divalproex 500 mg tablet extended release 24 hr 500 mg PO QHS Qty: 30 RF: 0 montelukast 10 mg Tablet 10 mg PO DAILY 30 Days Qty: 30 RF: 1 Discontinued methocarbamol 750 mg Tablet 750 mg PO Q8H PRN (Reason: muscle relaxer, strain) 30 Days Qty: 90 RF: 0 pantoprazole 40 mg Tablet,Delayed Release (Dr/Ec) 40 mg PO DAILY 30 Days Qty: 30 RF: 1 lisinopril 10 mg Tablet 10 mg PO DAILY 30 Days Qty: 30 RF: 1 nicotine 21 mg/24 hr Patch 24 Hour 1 patch TRANSDERMAL DAILY 14 Days Qty: 14 RF: 0 metoprolol succinate 25 mg Capsule,Sprinkle,Er 24hr 25 mg PO DAILY 30 Days Qty: 30 RF: 1 aspirin 81 mg tablet,chewable 81 mg PO BREAKFAST RF: 0 gabapentin 100 mg capsule 100 mg PO TIDCM RF: 0 Brilinta 90 mg tablet 90 mg PO BID RF: 0 No Action atorvastatin 40 mg Tablet 40 mg PO DAILY 30 Days Qty: 30 RF: 0 Referrals / Follow Up: Kristie Magdaleno MD [Primary Care Provider] - 05/27/21 11:20 am Kym Zhou NP, [employer] [Nurse Practitioner] - 06/01/21 10:00 am ( ) Disposition Disposition (needs filled in before D/C Order can be placed): Home, Self Care
--- NOTE | 2021-05-20 11:33 | PCM.DC.SUM ---
Providers Date of Admission: 05/05/21 Primary Care Physician: Dr. 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 depositor Routine Reason For Visit: DEBILITY Diagnosis Discharge Diagnosis (1) Physical debility: Status: Acute Code(s): R53.81 - Other malaise (2) Aortic occlusion: Status: Acute Code(s): I70.0 - Atherosclerosis of aorta (3) History of revascularization procedure of lower extremity: Status: Chronic Code(s): Z98.62 - Peripheral vascular angioplasty status (4) History of fasciotomy: Status: Acute Code(s): Z98.890 - Other specified postprocedural states (5) Secondary rhabdomyolysis: Status: Acute Code(s): M62.82 - Rhabdomyolysis (6) Thrombocytosis: Status: Acute Code(s): D75.839 - Thrombocytosis, unspecified (7) Clotting disorder: Status: Suspected Code(s): D68.9 - Coagulation defect, unspecified (8) Chronic anticoagulation: Status: Acute Code(s): Z79.01 - penitentiary (current) use of anticoagulants (9) Heme positive stool: Status: Acute Code(s): R19.5 - Other fecal abnormalities (10) Depression: Status: Acute Code(s): F32.A - Depression, unspecified (11) Attention and concentration deficit: Status: Acute Code(s): R41.840 - Attention and concentration deficit (12) Neural foraminal stenosis of cervical spine: Status: Acute Code(s): M48.02 - Spinal stenosis, cervical region (13) Neck pain: Status: Acute Code(s): M54.2 - Cervicalgia (14) Radicular pain in left arm: Status: Acute Code(s): M79.2 - Neuralgia and neuritis, unspecified (15) Acute blood loss anemia: Status: Acute Code(s): D62 - Acute posthemorrhagic anemia (16) Acute ischemic right MCA stroke: Status: Acute Code(s): I63.511 - Cerebral infarction due to unspecified occlusion or stenosis of right middle cerebral artery (17) Left-sided weakness: Status: Acute Code(s): R53.1 - Weakness (18) Left-sided neglect: Status: Acute Code(s): 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 (19) Cognitive dysfunction: Status: Acute Code(s): F09 - Unspecified mental disorder due to known physiological condition (20) History of coronary artery stent placement: Status: Chronic Code(s): Z95.5 - Presence of coronary angioplasty implant and graft (21) Diastolic dysfunction: Status: Acute Code(s): I51.89 - Other ill-defined heart diseases (22) Ischemic cardiomyopathy: Status: Acute Code(s): I25.5 - Ischemic cardiomyopathy (23) Essential hypertension: Status: Chronic Code(s): I10 - Essential (primary) hypertension (24) Atherosclerotic heart disease of [place] coronary artery without angina pectoris: Status: Chronic Code(s): I25.10 - Atherosclerotic heart disease of [place] coronary artery without angina pectoris (25) History of coronary angioplasty: Status: Acute Code(s): Z98.61 - Coronary angioplasty status Plan: 1. Discharge to home with OP PT/OT/ST on 05/20/21 2. Follow up with vascular medicine at [place] on 05/21/21 - virtual visit 3. Will need follow up with neurology, cardiology, vascular surgery Medications at Discharge Home Medications Arthritis Pain Compound 3 click TOPICAL TID #0 05/20/21 atorvastatin 40 mg PO DAILY 30 Days #30 tab 05/20/21 bupropion HCl 150 mg PO DAILY #30 tab 05/20/21 clopidogrel 75 mg PO DAILY #30 tab 05/20/21 divalproex 500 mg PO QHS #30 tab 05/20/21 gabapentin 300 mg PO TIDCM #90 cap 05/20/21 metoprolol succinate 25 mg PO DAILY #30 tab 05/20/21 montelukast 10 mg PO DAILY 30 Days #30 tab 05/20/21 oxycodone 10 mg PO Q4H PRN 7 Days #35 tab 05/20/21 pantoprazole 40 mg PO BID #60 tab 05/20/21 prednisone See Rx Instructions .ROUTE .COMPLEX #27 tab 05/20/21 warfarin See Rx Instructions .ROUTE .COMPLEX #53 tab 05/20/21 Hospital Course Operations - (On 04/21/21 he had a revasularization for an aortic occlusion followed by a 4 compartment thrombectomy at [facility]. ) Procedures None Summary of Care Provided Minutes Spent on Discharge: 50 Hospital Course: ANNEMARIE YOUNCE, is a 46 YO M who is known to me from a previous admission for ischemic CVA in the R MCA distribution in March of 2021 for which he had a thrombectomy at [facility]. He also had a loop recorder inserted at [facility]. While still in rehab on 03/28/21 he had a NSTEMI and was transferred to an acute monitored hospital bed. 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 He underwent thrombectomy/angioplasty of the LAD. The previous stent to the RCA was patent. He was also noted to have a 50% stenosis of the circ at the time of catheterization. ECHO showed a 45% EF with apical wall motion abnormality. He was discharged home rather than to rehab, at his request, on 03/30/21 on Brilinta and ASA. Appts were scheduled for him with neurology, cardiology and his PCP, Christine Magdaleno MD. On 04/20/21 he had Nausea and lightheadedness in the evening and the next morning he experienced severe pain in the RLE which progressed to inability to move the R foot and distal R leg. He presented to an outside ED and was found to have critical arterial ischemia of the RLE due to occlusion of the aortic bifurcation with clot. He was emergently transferred to [facility] and underwent emergency surgery for revascularization of the RLE. He had extensive thrombectomy and also had a PTCA of the R PT artery and a 4 compartment fasciotomy. Post op course was complicated by ARF due to rhabdomyolysis (this has since resolved), acute blood loss anemia requiring transfusion and hyperkalemia (resolved). He was seen by PT/OT and continues to have Left side weakness and L facial droop from the R MCA CVA in March of 2021. In addition he has some weakness of the RLE due to rhabdomyolysis and has healing fasciotomies. PT/OT recommended acute rehab and Annemarie chose to return to [facility] acute rehab. Annemarie was very cooperative with therapy during this admission to rehab. He has been diagnosed with Attention Deficit in the past but, has never been medicated. He had been getting by but, the recent stroke exacerbated his ability to attend to what was being said to him and he was not able to follow instructions. Because he had CAD and Cerebrovascular disease a stimulant medication was out of the question. We started Wellbutrin and he is much calmer, does not interrupt when others are talking and his depression is improving. He was quite tearful when he first arrived on rehab. Orthostasis was a problem early on but, this resolved with DC of Lisinopril. The BP at DC from the rehab unit was 106/76 and he denied lightheadedness. The HGB was up to 10 from 8.4 at admission to rehab. INR 1 day prior to DC was 3.1. He did have a + hemoccult stool while in rehab and he was c/o heartburn and epigastric pain. Protonix was increased to 40 mg BID and the epigastric pain and heartburn resolved. Another problem was persistent c/o neck pain and pain in the L shoulder. This impaired his ability to do OT. 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 Gabapentin was increased but the pain persisted and he was started on a course of Prednisone. The neck and shoulder pain completely resolved. He was discharged on a taper. the wounds on the distal R leg from the fasciotomies are healing. The swelling has greatly improved and the wounds are ramirez. The wounds are now even with the skin and a wound vac was not needed. I believe they will heal without surgery and this is the goal sin e the Warfarin would have to be stopped to have surgery. He is going to follow up in the Wound Care Center at [facility] for ongoing wound care. He may benefit from application of [place] to heal the wounds quicker and get them covered. This can be discussed in wound care with him. If a graft is necessary Dr. Perez is agreeable to doing the surgery at [place]. Annemarie did very well in therapy. Prior to DC he was ambulating with a quad cane and compensating for the R foot drop without dragging his toe. He did the TUG test in 17.46 sec and the goal was to do it in less than 35 sec. he was able to a send/descend 5 steps of various height at contact-guard assist with 1 handrail and a quad cane. He was mod I with eating and grooming himself and required only minimal assistance for bathing. He is able to dress his upper body and requires only minimal assistance to dress his lower body. He is standby assist for toileting and toilet transfer. He is contact-guard assist for tub/shower transfer. He had no difficulty with swallowing at discharge and was tolerating a regular texture diet with thin liquids. He was independently utilizing his memory log book and has made continued progress in ability to attend without tangential interjection. He is increasingly aware of his attention deficits and the impact this has on working memory and recall. He agrees that the Wellbutrin has helped him to focus. WE still do not know the etiology of the clotting disorder. He has a virtual appt with Dr. Jennifer Rg on 05/21/[address] Rg works in vascular medicine and has evaluated Annemarie when he was at [facility]. He was told he does not have an inherited clotting disorder and there is still a concern over occult malignancy as the etiology of the clotting disorder. The importance of following up with hematology/vascular medicine, cardiology, neurology and with Dr. Paul was discussed on several occasions during his admission. He will need to have a follow up with Dr. Magdaleno in the next week. I am giving him a requisition for a PT/INR on Tuesday05/22/21 and will address the results and adjust the Warfarin as needed until he has his appt with Dr. Magdaleno. Physical Exam Const alert, oriented x3, no apparent distress and well nourished General Appearance: cooperative and comfortable HEENT moist oral mucous membranes HEENT Narrative: Many dental caries and missing teeth. No conjunctival irritation and no scleral icterus. Eyes PERRL and EOMs intact bilaterally Eyes Narrative: No visual field cuts Neck no JVD and no carotid bruits Resp normal respiratory effort and clear to auscultation bilaterally Effort and Inspection: Negative for tachypneic or uses accessory muscles Cardio regular rate, regular rhythm, S1 normal heart sound, S2 normal heart sound, no murmurs, no rub and no gallops Cardio Narrative: No ectopy GI normal to inspection, nondistended, normoactive bowel sounds, soft to palpation and non-tender GI Narrative: No guarding with palpation Extremity no calf tenderness Extremity Narrative: He has some edema in the R calf and the R foot/toes but, it has improved quite a lot since admission to rehab. General Extremity: Negative for clubbing or cyanosis Skin Skin Narrative: The fasciotomy wounds on the medial and lateral side of the distal R LE are healing. There is no caio-wound erythema. No purulent DC , no odor, and no increased warmth to touch. There is 100% granulation tissue and good epithelialization at the margins of the wound. No islands of new epithelium yet. The wounds have contracted significantly since admission. The wounds are level with the skin now. Did not require a wound vac and the vac was very painful for him at the previous hospital. General Skin Exam: no breakdown and dry skin Rashes: no rashes Wounds: wounds noted Neuro CN's II-XII intact bilaterally Neuro Narrative: No extinction, He has drift with the LUE. No visual field cuts and the left side neglect has mostly resolved. Coordination / Balance: [id number] test normal and [id number] test normal Speech: speech normal Psych Psych Narrative: No tangential interjections while I am talking with him. He is calmer and he is no longer tearful. He is happy with his progress and feels he is much better off than when he left the hospital in March. Motivation is much better Appearance: appropriate Attitude: No agitated Thought Content: No suicidality, No homicidality and No hallucination(s) Weight / BMI Weight Weight: 193 lb 5.526 oz Body Mass Index (BMI) 28.8 ABG / Lab / Microbiology Data Result Diagrams: 05/18/21 11:10 05/15/21 05:23 Microbiology: Microbiology 05/08/21 09:50 Stool Stool Occult Blood ([place]) - Final Occult Blood Positive D/C Instructions Discharge Diet: Low fat / Low cholesterol and - (No added salt......try to keep the salt intake around 2-4 grams a day. No caffeine. ) May resume sexual activity in: No Restrictions Weight Bearing Status: Full weight bearing Keep extremity elevated above heart level: Right Leg Call your doctor if your incision/area has: Continuous Slow Oozing, Sudden Increased Bleeding, Increased Pain/ Swelling, Increased Redness and Foul Smelling Discharge Call your doctor if you observe: Fever of 101 or Higher, Coldness, Increased Pain, Fainting spells, Chest pain, Increased palpitations (irregular heartbeat) and Uncontrolled pain Cleanse incision/area with: Soap & Water and Keep Dressing Clean & Dry Additional Dressing/Incision Instructions: Cleanse the wounds daily with soap and water or saline. Pat the area around the wound dry. Apply the dressing. Change once daily. Pending Tests Upon Discharge: none Please Follow Up With: Kristie Magdaleno MD When: within 7-10 days post DC Meaningful Use Info Meaningful Use Diagnoses (Choose all that apply): None applicable Discharge Plan Admission Admit Date/Time: 05/05/21 17:55 Primary Reason for Your Visit: Debility due to aortic occlusion with revascularization and RLE fasciotomy Attending Provider: Shalini Stanley Primary Care Provider: Kristie Magdaleno Instructions Patient Instructions: What to Know When Taking?Warfarin Additional Instructions / Restrictions: 1. You have done GREAT. We appreciate your cooperation and your motivation. A LOT has happened in the past few months. First a stroke, followed by a heart attack and an angioplasty, followed by a total occlusion of the aorta which is the largest artery in the abdomen and extending into the legs. You R leg was without oxygen for > 6 hours and the muscle cells started to causing a lot of swelling and pain. You had to have incisions in the muscles in the lower R leg to relieve the pressure. WOW! You are now on a blood thinner called Warfarin to prevent any further clots. Patients on Warfarin have to have regular lab tests to check the clotting time. We check a test called an INR. The INR must be kept between 2 and 3.5. Less than 2 and you are at risk for making more clots. Over 3.5 you are at risk for bleeding (from the gums, nose, GI tract, and into the head. You should avoid activities where you could possibly hit your hit. That means no brody diving, hang gliding, skate boarding, football, bungee jumping, etc. Warfarin interacts with many other drugs that can either inhibit the warfarin and make the INR too low OR potentiate the Warfarin and make the bleeding time too high putting you at risk for bleeding. Even over the counter drugs can do this. If you have ANY doubt about a new medication interfering with the Warfarin ASK the PHARMACIST AT YOUR DRUGSTORE. 2. I do not know why your blood clots more easily than it should. Dr. Jennifer Rg from vascular medicine is going to help figure that out. You have a virtual appt with her on your phone or laptop on 05/21/21 at 8 AM. This appt is VERY IMPORTANT. Do NOT miss it. 3. There are neurologists closer to where you live than [place] so if you do not want to drive to [place] to follow up with neurology we can try someone closer. You will also need to follow up with a aerotriangulation specialist. This will likely not be often. The heart Group here at the [facility] is good and you could follow up with them if you desire or pick a aerotriangulation specialist you would like to see close to where you live. 4. Blood clotting disorders can come from a disease you inherited but, they can also come from a cancer that we have not yet discovered.........do NOT blow this off.......we have to find out why your blood is clotting so easily. 5. The pain in the neck and the L shoulder is coming from a pinched nerve in your neck. You will need to at some point see a orthopedic surgeon or a neurosurgeon if you need surgery to fix it. You should not have surgery for the next 3-6 months if at all possible. You must first heal from all the problems you have had in the past 2-3 months. There are 2 pain management doctors in [place]. Dr. Henderson and Dr. Arauz. They may be able to help you. 6. You have attention deficit. We have started you on a medication called Wellbutrin that seems to be helping you focus and pay attention better. You also seem calmer. I am keeping you on this medication at [place] because being able to focus is important when you have to follow up with other doctors and keep appts and be able to remember what they say to you. 7. You are on a lot of medication. They are all necessary to keep you functioning at your best and keep you from having more blood clots, strokes, heart attacks. Do NOT stop any medication without talking to Dr. Magdaleno. 8. I think the wounds are going to heal without surgery.......this is great news because we will not have to stop your WARFARIN SO YOU CAN HAVE SURGERY....THIS COULD PUT YOU AT RISK FOR ANOTHER CLOT. You are going to be following up in the wound care center here in [place]. You will be seen by Rae Zhou who is a physicians assistant office manager who works with Dr. Perez who is the plastic surgeon here. She is very good and she may want to cover the wound with actual skin from a donor....there will be no cutting involved. You just lay the skin on the wound and secure it with glue. I have worked in the wound care center in the past and used this product and it works great to heal wounds faster. 8. I am glad to have had more time with you this admission Joaquín. I have enjoyed getting to know you better and seeing you do so well. If you have any questions after you leave wound care please do not hesitate to call me. Office [phone] . Be well my friend and hang in there.......we have to find out why you are clotting and this may take some time. In the meantime you are protected by Warfarin. Discharge Orders/Prescriptions Prescriptions: New gabapentin 300 mg Capsule 300 mg PO TIDCM Qty: 90 RF: 0 pantoprazole 40 mg Tablet,Delayed Release (Dr/Ec) 40 mg PO BID Qty: 60 RF: 0 metoprolol succinate 25 mg Tablet Extended Release 24 Hr 25 mg PO DAILY Qty: 30 RF: 0 Arthritis Pain Compound 3 click topical TID Qty: 0 RF: 0 clopidogrel 75 mg Tablet 75 mg PO DAILY Qty: 30 RF: 0 bupropion HCl 150 mg Tablet Extended Release 24 Hr 150 mg PO DAILY Qty: 30 RF: 0 warfarin 2 mg tablet See Rx Instructions .ROUTE .COMPLEX Qty: 53 RF: 0 prednisone 10 mg tablet See Rx Instructions .ROUTE .COMPLEX Qty: 27 RF: 0 oxycodone 10 mg tablet 10 mg PO Q4H PRN (Reason: pain) 7 Days Qty: 35 RF: 0 Continued divalproex 500 mg tablet extended release 24 hr 500 mg PO QHS Qty: 30 RF: 0 montelukast 10 mg Tablet 10 mg PO DAILY 30 Days Qty: 30 RF: 1 atorvastatin 40 mg Tablet 40 mg PO DAILY 30 Days Qty: 30 RF: 0 Discontinued methocarbamol 750 mg Tablet 750 mg PO Q8H PRN (Reason: muscle relaxer, strain) 30 Days Qty: 90 RF: 0 pantoprazole 40 mg Tablet,Delayed Release (Dr/Ec) 40 mg PO DAILY 30 Days Qty: 30 RF: 1 lisinopril 10 mg Tablet 10 mg PO DAILY 30 Days Qty: 30 RF: 1 nicotine 21 mg/24 hr Patch 24 Hour 1 patch TRANSDERMAL DAILY 14 Days Qty: 14 RF: 0 metoprolol succinate 25 mg Capsule,Sprinkle,Er 24hr 25 mg PO DAILY 30 Days Qty: 30 RF: 1 aspirin 81 mg tablet,chewable 81 mg PO BREAKFAST RF: 0 gabapentin 100 mg capsule 100 mg PO TIDCM RF: 0 Brilinta 90 mg tablet 90 mg PO BID RF: 0 Referrals / Follow Up: Kristie Magdaleno MD [Primary Care Provider] - 05/27/21 11:20 am Kym Zhou NP, DEVELOPMENTAL SPECIALIST-C [Nurse Practitioner] - 06/01/21 10:00 am ( ) Disposition Disposition (needs filled in before D/C Order can be placed): Home, Self Care Charges/Coding Visit Charges Inpatient E&M: 48445 Disch Hosp
--- NOTE | 2021-05-20 11:34 | CASEMGMT ---
Social Work Insurance issued DC 05/20. Notified pt, no' and IDT. Agreeable to DC with outpatient therapy. Referred to [facility] and scheduled appts for PT/OT/ST. No DME needs. No' to transport pt home. Plan: DC home 05/20 with no' and family, [facility] outpatient PT/OT/ST Sharmila Colby, HUBER HARLEYW
[2021-05-20 14:30] VITALS: BP 107/73; PULSE 88; RESP 18; TEMP 36.2; O2SAT 96
== END 2021-05-20 14:35 | disposition home or self-care (01) | DRG 57 ==
PROVIDERS: Admitting Provider Internal Medicine; PCP Family Medicine; Visit Provider Internal Medicine
DX: I69.341 Monoplegia of lower limb following cerebral infarction affecting right dominant side (principal); I82.423 Acute embolism and thrombosis of iliac vein, bilateral; D68.9 Coagulation defect, unspecified; I69.354 Hemiplegia and hemiparesis following cerebral infarction affecting left non-dominant side; I70.0 Atherosclerosis of aorta; J44.9 Chronic obstructive pulmonary disease, unspecified; M19.012 Primary osteoarthritis, left shoulder; M48.00 Spinal stenosis, site unspecified; M54.10 Radiculopathy, site unspecified; I25.10 Atherosclerotic heart disease of native coronary artery without angina pectoris; I25.5 Ischemic cardiomyopathy; K21.9 Gastro-esophageal reflux disease without esophagitis; I10 Essential (primary) hypertension; I25.2 Old myocardial infarction; R19.5 Other fecal abnormalities; F32.A Depression, unspecified; Z87.891 Personal history of nicotine dependence; Z79.01 Long term (current) use of anticoagulants; Z79.899 Other long term (current) drug therapy; Z79.82 Long term (current) use of aspirin; R41.840 Attention and concentration deficit
CPT/HCPCS: 36415; 72040; 80048; 80053; 82274; 83735; 84100; 85014; 85018; 85025; 85027; 85610; 85652; 86140; 92507; 92523; 97110; 97112; 97116; 97129; 97130; 97162; 97166; 97530; 97535; 97542; 97802; 97803; 99406; A4216

== ENCOUNTER 2021-06-01 09:44 | Outpatient (RCR) | payer BC, SELFPAY ==
[2021-06-01 10:04] VITALS: BP 137/92; PULSE 85; TEMP 36.2; BMI 28.8
--- NOTE | 2021-06-01 11:42 | PCM.WC.HP ---
History of Present Illness Date of Service: 06/01/21 Chief Complaint: Right medial leg ulcer and right lateral leg ulcer. 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 He was emergently transferred to [facility] and underwent emergency surgery for revascularization of the RLE. He had extensive thrombectomy and also had a PTCA of the R PT artery and a 4 compartment fasciotomy. Post op course was complicated by ARF due to rhabdomyolysis (this has since resolved), acute blood loss anemia requiring transfusion and hyperkalemia (resolved). 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 He also had a loop recorder inserted at [facility]. While still in rehab on 03/28/21 he had a NSTEMI and was transferred to an acute monitored hospital bed. 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 He underwent thrombectomy/angioplasty of the LAD. The previous stent to the RCA was patent. He was also noted to have a 50% stenosis of the circ at the time of catheterization. ECHO showed a 45% EF with apical wall motion abnormality. Discharged home from rehab on 05/20/21. Wound care - Daily Silver alginate dressings will change to Fibracol + covered gauze daily. Double tubigrip for compression. He denies nausea and vomiting. He states his appetite is good. Progress of Wound: Right medial and right lateral leg ulcers are beefy pink. His right ankle is swollen from twisting it while walking on ice over a week ago. FORMERLY [facility], [facility]–1983 Medical History Acute ischemic right MCA stroke Acute non-ST elevation myocardial infarction (NSTEMI) Acute renal failure due to rhabdomyolysis Aortic occlusion Asthma Atherosclerotic heart disease of [place] coronary artery without angina pectoris Attention and concentration deficit CAD (coronary artery disease) COPD (chronic obstructive pulmonary disease) Diastolic dysfunction Essential hypertension GERD (gastroesophageal reflux disease) History of CVA (cerebrovascular accident) Ischemic cardiomyopathy Migraine Neck pain Renal cyst Secondary rhabdomyolysis Tobacco dependence Home Medications Arthritis Pain Compound 3 click TOPICAL TID #0 05/20/21 [Rx Last Taken Unknown] atorvastatin 40 mg PO DAILY 30 Days #30 tab 05/20/21 [Rx Last Taken Unknown] clopidogrel 75 mg PO DAILY #30 tab 05/20/21 [Rx Last Taken Unknown] divalproex 500 mg PO QHS #30 tab 05/20/21 [Rx Last Taken Unknown] gabapentin 300 mg PO TIDCM #90 cap 05/20/21 [Rx Last Taken Unknown] metoprolol succinate 25 mg PO DAILY #30 tab 05/20/21 [Rx Last Taken Unknown] montelukast 10 mg PO DAILY 30 Days #30 tab 05/20/21 [Rx Last Taken Unknown] oxycodone 10 mg PO Q4H PRN 7 Days #35 tab 05/20/21 [Rx Last Taken Unknown] pantoprazole 40 mg PO BID #60 tab 05/20/21 [Rx Last Taken Unknown] prednisone See Rx Instructions .ROUTE .COMPLEX #27 tab 05/20/21 [Rx Last Taken Unknown] warfarin See Rx Instructions .ROUTE .COMPLEX #53 tab 05/20/21 [Rx Last Taken Unknown] bupropion HCl 75 mg PO DAILY 06/01/21 [History Last Taken Unknown] clotrimazole [Lotrimin] 1 applic TOPICAL BID 06/01/21 [History Last Taken Unknown] oxycodone-acetaminophen [Percocet] 1 tab PO TID PRN 7 Days #21 tab 06/01/21 [Rx Last Taken Unknown] Allergy/AdvReac Type Severity Reaction Status Date / Time bee venom protein (honey bee) Allergy NEEDS Verified 03/15/21 08:18 FOLLOW-UP Family History Uncle CAD (coronary artery disease) Father Aneurysm Hypertension Mother Hypertension Other Myocardial infarction Surgical History History of cholecystectomy History of coronary angioplasty (03/30/21) History of coronary artery stent placement History of cosmetic plastic surgery History of fasciotomy History of revascularization procedure of lower extremity Social History (Reviewed 06/02/21 @ 11:50 by Kym Zhou TRANSVERSE ABDOMINAL MUSCLE SURGEON, TRANSVERSE ABDOMINAL MUSCLE SURGEON-C) adopted: No household members: significant other and children current occupational status: disabled 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 L 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 and neg history of recent travel: No sexually active: Yes Smoking Status: Former smoker quit date: 03/16/21 Tobacco: How many years used: 35 counseling given: provider counseling substance use type: does not use caffeine: Yes ROS Constitutional Constitutional: Denies fatigue or fever(s) ENT HEENT: Reports none Cardiovascular Cardiovascular: Reports leg edema; Denies chest pain or dyspnea Respiratory/Chest Respiratory/Chest: Reports none Gastrointestinal Gastrointestinal: Reports none Genitourinary Genitourinary: Reports none Integumentary Integumentary: Reports wounds Neurologic Neurologic: Reports as per HPI Psychiatric Psychiatric: Reports as per HPI Vital Signs Vital Signs Vital Signs: 06/01/21 10:04 Temperature 97.2 F L Temperature Source Temporal Pulse Rate 85 Blood Pressure 137/92 H Blood Pressure Mean 107 Blood Pressure Source Monitor Weight Weight: 195 lb Body Mass Index (BMI) 28.8 Physical Exam Const alert and oriented x3 General Appearance: cooperative HEENT normocephalic Resp normal respiratory effort, normal air movement and clear to auscultation bilaterally Cardio regular rate and regular rhythm GI normal to inspection, nondistended, normoactive bowel sounds, soft to palpation and non-tender Extremity normal capillary refill Extremity Narrative: +1 edema of right lower extremity. Peripheral Pulses: Yes dorsalis pedis pulses present Right Lower Extremity: ankle joint inspection, palpation and ROM (Right ankle with swelling, bruising that is resolving and pain with ambulation.) Skin Wound Narrative: Right medial leg and right lateral leg ulcers are beefy pink. Healing well with good granulation tissue. Neuro oriented x3 and CN's II-XII intact bilaterally Psych cooperative Debridement Note Debridement Note Wound debrided: lateral leg ulcer Laterality: Right Type of Debridement: Excisional debridement Anesthesia Used: 4% Lidocaine Solution and 5% Lidocaine Gel Depth: Down to and including healthy tissue and in the subcutaneous layer Percentage of wound debrided: 100 Instrument Used: 7mm curette Tissue Removed: Subcutaneous tissue and slough Severity: Fat Layer Exposed Amount of bleeding with debridement: Mild Bleeding Controlled with: Pressure and Compression and gauze Patient tolerated procedure: Patient tolerated procedure well Post-Debridement Measurements and Additional Note: Post-Debridement Measurements/Treatment MAGDALENA - Nurse 1 - General Ulcer Assessment Start: 06/01/21 10:03 Freq: Status: Active Protocol: RIVER Activity Type Activity Date Activity User E-Sign Co-Sign Detail Recorded Client Recorded Date Recorded By Document 06/01/21 10:04 KS [id number] 06/01/21 10:26 AK 06/01/21 10:04 - Today's Visit Information Type of service Initial Visit Arrival Mode Ambulatory,Cane Patient Identification Verified (Name & Yes ) Patient Requires Transmission-Based No Precautions Safety Precautions NA Height and Weight Height 5 ft 9 in Weight 195 lb Weight in Pounds 195.0 lbs Weight Measurement Method Standing Scale Body Mass Index (BMI) 28.8 BMI Classification Overweight BSA - [place] 2.04 Vital Signs Temperature (97.8 F-99.1 F) 97.2 F L Temperature Source Temporal Pulse Rate (60-100) 85 Pulse Location Monitor Blood Pressure (90/60-120/80) 137/92 H Blood Pressure Mean 107 Source Monitor History Since Last Visit- (Skip if this is Patient's initial visit) Have you changed medications since your No last visit? Any new allergies or adverse reactions No Had a fall/change in ADL's that may No increase risk of falls Signs or symptoms of abuse and/or No neglect since last visit Have you been in the hospital since your No last visit? Has dressing in place as prescribed Yes Has compression in place as prescribed Yes Has offloadiing in place as prescribed N/A Experienced any changes in pain level or No management Left Footwear Regular Shoe Right Footwear Regular Shoe Pain Scale: 0-10 Numeric Is Patient Pain Free? Yes - Nurse 1 - General Ulcer Measurement Start: 06/01/21 10:03 Freq: Status: Active Protocol: Activity Type Activity Date Activity User E-Sign Co-Sign Detail Recorded Client Recorded Date Recorded By Document 06/01/21 10:04 KASSI [id number] 06/01/21 10:26 [place] 06/01/21 10:04 Wound Center Nurse 1 #2 Right Lateral LE -Combined with other wound No -Current Size (cm) - Length 12 -Current Size (cm) - Width 2.6 -Current Size (cm) - Depth 0.2 -Total Square Cm 31.2 -Photo Taken No -Tunneling No -Undermining/Tunneling No -Circular Undermining No -Change in Wound Grade/Stage No -Exudate Amt Medium -Exudate Type Serosanguineous -Wound Margin Distinct, Outline Attached -Granulation Amt None Present (0 %) -Granulation Quality N/A -Slough/Fibrin Yes -Necrosis Amt Medium (34-66%) -Necrotic Tissue Type Adherent Slough -Structure Exposed N/A -Texture (Whitley-wound Skin Appearance) No Abnormality, Assessed -Moisture (Whitley-wound Skin Appearance) No Abnormality, Assessed -Color (Whitley-wound Skin Appearance) No Abnormality, Assessed -Temperature (Whitley-wound Skin No Abnormality Appearance) (Pt Warm) -Tenderness on Palpation (Whitley-wound No Skin Appearance) -Ulcer Cleansing Soap and Water -Foul Odor after Cleansing No -Anesthetic Used 4% Lidocaine Solution #1 R medial LE -Combined with other wound No -Current Size (cm) - Length 11.6 -Current Size (cm) - Width 2.4 -Current Size (cm) - Depth 0.2 -Total Square Cm 27.84 -Photo Taken No -Tunneling No -Undermining/Tunneling No -Circular Undermining No -Change in Wound Grade/Stage No -Exudate Amt Medium -Exudate Type Serosanguineous -Wound Margin Distinct, Outline Attached -Granulation Amt Large (67-100%) -Granulation Quality [place],Red -Slough/Fibrin No -Necrosis Amt Medium (34-66%) -Structure Exposed N/A -Texture (Whitley-wound Skin Appearance) No Abnormality, Assessed -Moisture (Whitley-wound Skin Appearance) No Abnormality, Assessed -Color (Whitley-wound Skin Appearance) No Abnormality, Assessed -Temperature (Whitley-wound Skin No Abnormality Appearance) (Pt Warm) -Tenderness on Palpation (Whitley-wound Yes Skin Appearance) -Ulcer Cleansing Soap and Water -Foul Odor after Cleansing No -Anesthetic Used 4% Lidocaine Solution Lower Limb Edema Present No Right Calf (cm) 35.2 Right Ankle (cm) 26 Left Calf (cm) 37 Left Ankle (cm) 25 WC - Nurse 2 - General Ulcer CM Notes Start: 06/01/21 10:03 Freq: Status: Active Protocol: Activity Type Activity Date Activity User E-Sign Co-Sign Detail Recorded Client Recorded Date Recorded By Document 06/01/21 10:44 JULIANE [id number] 06/01/21 11:00 JULIANE 06/01/21 10:44 Wound Center Nurse 2 #2 Right Lateral LE -Time 10:45 -Correct Patient Yes -Correct Side, Site, Position Yes -Correct Procedure Yes -Procedure Performed Yes -Type of Procedure Debridement -Clinical Debridement Subcutaneous -Tissue Removed Subcutaneous -Post Debridement (cm) - Length 11.7 -Post Debridement (cm) - Width 2.0 -Post Debridement (cm) - Depth 0.2 -Total Square (Post) (cm) 23.40 -Area of Debridement (cm) - Length 11.7 -Area of Debridement (cm) - Width 2.0 -Total Square (Area) (cm) 23.40 -Tunneling No -Undermining/Tunneling No -Circular Undermining No -Wound/Ulcer Outcome Not Healed -Ulcer Cleansing Rinsed/ Irrigated with Saline -Foul Odor after Cleansing No -Bioengineered Tissue No -Bleeding Controlled with Pressure -Offloading No -Treatment Response Procedure Tolerated Well -Debridement - Subq, 1st 20sq cm No -Debridement, SubQ, ea addt'l 20sq cm 1 or part thereof #1 R medial LE -Time 10:46 -Correct Patient Yes -Correct Side, Site, Position Yes -Correct Procedure Yes -Procedure Performed Yes -Type of Procedure Debridement -Clinical Debridement Subcutaneous -Tissue Removed Subcutaneous -Post Debridement (cm) - Length 10.0 -Post Debridement (cm) - Width 2.3 -Post Debridement (cm) - Depth 0.2 -Total Square (Post) (cm) 23.00 -Area of Debridement (cm) - Length 10.0 -Area of Debridement (cm) - Width 2.3 -Total Square (Area) (cm) 23.00 -Tunneling No -Undermining/Tunneling No -Circular Undermining No -Wound/Ulcer Outcome Not Healed -Ulcer Cleansing Rinsed/ Irrigated with Saline -Foul Odor after Cleansing No -Bioengineered Tissue No -Bleeding Controlled with Pressure -Offloading No -Treatment Response Procedure Tolerated Well -Debridement - Subq, 1st 20sq cm Yes -Debridement, SubQ, ea addt'l 20sq cm 1 or part thereof Pain Scale: 0-10 Numeric Is Patient Pain Free? Yes WC - Nurse 3 - General Ulcer D/C NN Start: 06/01/21 10:03 Freq: Status: Active Protocol: Activity Type Activity Date Activity User E-Sign Co-Sign Detail Recorded Client Recorded Date Recorded By Document 06/01/21 11:11 [facility] [id number] 06/01/21 11:14 [facility] 06/01/21 11:11 Wound Care Nurse 3 #2 Right Lateral LE -Ulcer Cleansing Rinsed/ Irrigated with Saline -Foul Odor after Cleansing No -Primary Dressing Applied Fibracol Plus 4x4 -Other Dressing abd -Primary Dressing Covered/Secured with Dry Gauze & Roll Gauze, Secured with Tape -Other Covering drsg per ak nursing teacher -Fibracol Plus 4x4 2 #1 R medial LE -Ulcer Cleansing Rinsed/ Irrigated with Saline -Foul Odor after Cleansing No -Primary Dressing Applied Fibracol Plus 4x4 -Other Dressing abd -Primary Dressing Covered/Secured with Dry Gauze & Roll Gauze, Secured with Tape,Other -Other Covering drsg per [place] nursing teacher -Fibracol Plus 4x4 0 Right -Tubular Bandage Double Layer -Size of Tubigrip Used Size E -Size E ($) 1 Treatment Response Procedure Tolerated Well Pain Scale: 0-10 Numeric Is Patient Pain Free? Yes WC - Visit Discharge Discharge Condition Stable Ambulatory Status Ambulatory,Cane Transportation Private Auto Additional Wound Wound debrided: medial leg ulcer Laterality: Right Type of Debridement: Excisional debridement Anesthesia Used: 4% Lidocaine Solution and 5% Lidocaine Gel Depth: Down to and including healthy tissue and in the subcutaneous layer Percentage of wound debrided: 100 Instrument Used: 7mm curette Tissue Removed: Subcutaneous tissue and slough Severity: Fat Layer Exposed Amount of bleeding with debridement: Mild Bleeding Controlled with: Pressure Patient tolerated procedure: Patient tolerated procedure well Charges/Coding Visit Charges Office Visits / Consults: 87920 OV L4 Est (25 modifier) Procedures Integumentary [id number]: [id number] Jeanne subq tissue 20 sq cm/< Add On Codes: [id number] Jeanne subq tissue add-on (x2) Assessment/Plan Assessment/Plan (1) Ulcer of right medial lower extremity with fat layer exposed: CODE(S): L97.812 - Non-pressure chronic ulcer of other part of right lower leg with fat layer exposed (2) Ulcer of right lower extremity with fat layer exposed: CODE(S): L97.912 - Non-pressure chronic ulcer of unspecified part of right lower leg with fat layer exposed (3) Other acute postprocedural pain: CODE(S): G89.18 - Other acute postprocedural pain (4) History of fasciotomy: CODE(S): Z98.890 - Other specified postprocedural states (5) Thrombocytosis: CODE(S): D75.839 - Thrombocytosis, unspecified (6) History of revascularization procedure of lower extremity: CODE(S): Z98.62 - Peripheral vascular angioplasty status (7) Clotting disorder: CODE(S): D68.9 - Coagulation defect, unspecified (8) History of CVA (cerebrovascular accident): CODE(S): Z86.73 - Personal history of transient ischemic attack (TIA), and cerebral infarction without residual deficits PLAN: Patient was seen and evaluated at the wound center today. A subcutaneous debridement was performed as documented above. He would benefit from an advanced wound healing product such as Epifix to help heal his medial leg ulcer. Wound care - Stop the silver alginate dressing and start Fibrocol + to both ulcer daily and cover with gauze. Double tubigrip for compression. Will order an x-ray of his right ankle due to pain and swelling he is experiencing when he is weightbearing. Will renew Percocet (21 tabs) for pain. PDMP reviewed. His Warfarin is managed by his PCP. He is seeing a forming machine upkeep mechanic to try and figure out his idiopathic clotting disorder. Follow up one week.
--- NOTE | 2021-06-01 11:45 | RAD_ITS ---
History: RT ANKLE PAIN SWELLING Right ankle 3 views: Findings. No acute fracture or dislocation. No joint space abnormality. Soft tissue swelling noted. Linear radiopaque foreign body noted along the plantar soft tissues consistent with a needle. IMPRESSION: Soft tisuue swelling. Plantar foreign body. at 1654 Reported and signed by: Ahmet Beltrán MD Electronically Signed: Ahmet Beltrán MD at 16:53 EST , RAD/Ankle min 3 Views
== END 2021-06-01 23:59 ==
LOC: WC 09:44
PROVIDERS: PCP Family Medicine; Visit Provider Nurse Practitioner Family
DX: L97.812 Non-pressure chronic ulcer of other part of right lower leg with fat layer exposed (principal); J44.9 Chronic obstructive pulmonary disease, unspecified; D68.9 Coagulation defect, unspecified; I25.10 Atherosclerotic heart disease of native coronary artery without angina pectoris; I10 Essential (primary) hypertension; I25.5 Ischemic cardiomyopathy; J45.909 Unspecified asthma, uncomplicated; M19.90 Unspecified osteoarthritis, unspecified site; G89.18 Other acute postprocedural pain; E66.3 Overweight; K21.9 Gastro-esophageal reflux disease without esophagitis; Z79.02 Long term (current) use of antithrombotics/antiplatelets; Z79.01 Long term (current) use of anticoagulants; Z79.52 Long term (current) use of systemic steroids; Z79.899 Other long term (current) drug therapy; I25.2 Old myocardial infarction; Z87.891 Personal history of nicotine dependence; Z95.5 Presence of coronary angioplasty implant and graft; Z86.73 Personal history of transient ischemic attack (TIA), and cerebral infarction without residual deficits; Z68.28 Body mass index [BMI] 28.0-28.9, adult; Z98.62 Peripheral vascular angioplasty status
CPT/HCPCS: 11042; 11045; 73610; 99214; G0463

== ENCOUNTER 2021-06-23 12:37 | Outpatient (CLI) | payer BC, SELFPAY ==
--- NOTE | 2021-06-23 12:43 | VDLE_ITS ---
Reason For Study: RLE ulceration, edema RIGHT LEFT CFV is compressible, spontaneous, phasic, CFV is compressible, spontaneous, phasic, competent and demonstrates normal competent, and demonstrates normal augmentation. augmentation. FV is compressible, spontaneous, phasic, FV is compressible, spontaneous, phasic, competent and demonstrates normal competent and demonstrates normal augmentation. augmentation. POP V is compressible, spontaneous, phasic, POP V is compressible, spontaneous, phasic, competent and demonstrates normal competent and demonstrates normal augmentation. augmentation. T/P Trunk is compressible. T/P Trunk is compressible. PTV is compressible. PTV is compressible. RT PerV is compressible. LT PerV is compressible. SFJ is competent and measures .87 cm. SFJ is competent and measures .62 cm. GSV proximal thigh measures .5 x .53 cm. GSV proximal thigh measures .36 x .39 cm. GSV at knee measures .45 x .49 cm. GSV at knee measures .18 x .2 cm. GSV INCOMPETENT throughout for greater than GSV INCOMPETENT throughout for greater than 0.5 seconds. 0.5 seconds. SSV proximal calf is competent and SSV proximal calf is competent and measures .25 x .27 cm. measures .28 x .35 cm. Hypoechoic area in the proximal thigh measuring 2.1 x 2.39 cm in short. Area is nonvascular. Procedure This is a venous duplex using B-mode, color flow and spectral Doppler. Exam performed in department. The exam was diagnostic. VL/Venous Duplex US - Lm Extrem Interpretation Summary Deep veins of the lower extremities are bilaterally patent and compressible seg mentally. There is no evidence of deep vein thrombosis on either side. Valvular competence appears in tact within the proximal deep venous systems bilaterally. The great saphenous veins appear bila terally patent and compressible segmentally. Sapheno-femoral junctions are bilaterally competent . Segmental valvular incompetence is noted within the great saphenous veins bilaterally. Small saphe nous veins are patent and competent bilaterally. A non-vascular, hypoechoic structure is noted in the right proximal thigh, measuring 2.1 cm x 2.39 cm. This may represent a hematoma or seroma. Cli nical correlation is advised. Ordering Physician: Kym Zhou Performed By: Julius Silva RVT
== END 2021-06-23 23:59 | disposition home or self-care (01) ==
LOC: CVS 12:41
PROVIDERS: PCP Family Medicine; Referring Provider Nurse Practitioner Family; Visit Provider Nurse Practitioner Family
DX: L97.919 Non-pressure chronic ulcer of unspecified part of right lower leg with unspecified severity (principal); R60.0 Localized edema
CPT/HCPCS: 93970

== ENCOUNTER 2021-06-29 09:45 | Outpatient (RCR) | payer BC, SELFPAY ==
[2021-06-02 00:49] VITALS: BP 137/92; PULSE 85; TEMP 36.2; BMI 28.8
[2021-06-08 10:04] VITALS: BP 135/93; PULSE 80; RESP 16; TEMP 36.5; BMI 28.8
--- NOTE | 2021-06-08 17:06 | PCM.WC.PN ---
History of Present Illness Date of Service: 06/08/21 Chief Complaint: Right medial leg ulcer and right lateral leg ulcer. 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 He was emergently transferred to [facility] and underwent emergency surgery for revascularization of the RLE. He had extensive thrombectomy and also had a PTCA of the R PT artery and a 4 compartment fasciotomy. Post op course was complicated by ARF due to rhabdomyolysis (this has since resolved), acute blood loss anemia requiring transfusion and hyperkalemia (resolved). 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 He also had a loop recorder inserted at [facility]. While still in rehab on 03/28/21 he had a NSTEMI and was transferred to an acute monitored hospital bed. 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 He underwent thrombectomy/angioplasty of the LAD. The previous stent to the RCA was patent. He was also noted to have a 50% stenosis of the circ at the time of catheterization. ECHO showed a 45% EF with apical wall motion abnormality. Discharged home from rehab on 05/20/21. Right ankle x-ray 06/01/21 showed no acute fracture or dislocation, no joint space abnormality, soft tissue swelling noted. Linear radiopaque foreign body noted along the plantar soft tissues consistent with a needle. Wound care - Daily Fibracol + covered gauze daily to both the medial and lateral right leg ulcers. Double tubigrip for compression. He denies nausea and vomiting. He states his appetite is good. Progress of Wound: Both right leg medial and lateral leg ulcers are smaller in size. Wound bed is beefy pink. Objective Data Objective Data Vital Signs: Vital Signs Temp Pulse Resp BP 97.7 F L 80 16 135/93 H 06/08/21 10:04 06/08/21 10:04 06/08/21 10:04 06/08/21 10:04 Oxygen Delivery Method Room Air Weight: 195 lb Body Mass Index (BMI) 28.8 Charges/Coding Procedures Integumentary 111xxx-113xx: [id number] Jeanne subq tissue 20 sq cm/< Add On Codes: 79103 Jeanne subq tissue add-on (x1) Physical Exam Const alert and oriented x3 General Appearance: cooperative HEENT normocephalic Resp normal respiratory effort Cardio regular rate Extremity normal capillary refill Extremity Narrative: +1 edema Skin Wound Narrative: Both right leg medial and lateral leg ulcers are smaller in size. Wound bed is beefy pink. Neuro CN's II-XII intact bilaterally Psych Appearance: grossly normal Debridement Note Debridement Note Wound debrided: medial leg ulcer Laterality: Right Type of Debridement: Excisional debridement Anesthesia Used: 5% Lidocaine Gel Depth: Down to and including healthy tissue and in the subcutaneous layer Percentage of wound debrided: 100 Instrument Used: 5mm curette Tissue Removed: Subcutaneous tissue and slough Severity: Fat Layer Exposed Amount of bleeding with debridement: Mild Bleeding Controlled with: Compression and gauze Patient tolerated procedure: Patient tolerated procedure well Post-Debridement Measurements and Additional Note: Post-Debridement Measurements/Treatment - Nurse 1 - General Ulcer Assessment Start: 06/08/21 10:04 Freq: Status: Active Protocol: RIVER Activity Type Activity Date Activity User E-Sign Co-Sign Detail Recorded Client Recorded Date Recorded By Document 06/08/21 10:04 [facility] [id number] 06/08/21 10:12 [facility] 06/08/21 10:04 - Today's Visit Information Type of service 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-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 ) Arrival Mode Ambulatory Transfer Assistance None Accompanied by Patient Identification Verified (Name & Yes ) Patient Requires Transmission-Based No Precautions Height and Weight Body Mass Index (BMI) 28.8 BMI Classification Overweight Vital Signs Temperature (97.8 F-99.1 F) 97.7 F L Temperature Source Temporal Pulse Rate (60-100) 80 Pulse Location Monitor Respiratory Rate (12-18) 16 Respiratory rate source Observation Oxygen Delivery Method Room Air Blood Pressure (90/60-120/80) 135/93 H Blood Pressure Mean (mm Hg) 107 Source Monitor Position Sitting Blood Pressure Location Right Arm History Since Last Visit- (Skip if this is Patient's initial visit) Have you changed medications since your No last visit? Any new allergies or adverse reactions No Had a fall/change in ADL's that may No increase risk of falls Signs or symptoms of abuse and/or No neglect since last visit Have you been in the hospital since your No last visit? Has dressing in place as prescribed Yes Has compression in place as prescribed Yes Has offloadiing in place as prescribed N/A Experienced any changes in pain level or No management Left Footwear Regular Shoe Right Footwear Regular Shoe Pain Scale: 0-10 Numeric Is Patient Pain Free? Yes WC - Nurse 1 - General Ulcer Measurement Start: 06/08/21 10:04 Freq: Status: Active Protocol: Activity Type Activity Date Activity User E-Sign Co-Sign Detail Recorded Client Recorded Date Recorded By Document 06/08/21 10:04 [facility] [id number] 06/08/21 10:12 [facility] 06/08/21 10:04 Wound Center Nurse 1 #2 Right Lateral LE -Combined with other wound No -Current Size (cm) - Length 10.5 -Current Size (cm) - Width 1.6 -Current Size (cm) - Depth 0.1 -Total Square Cm 16.80 -Epithelialization Small 1-33% -Tunneling No -Undermining/Tunneling No -Circular Undermining No -Exudate Amt Medium -Exudate Type Serosanguineous -Wound Margin Distinct, Outline Attached -Granulation Amt Large (67-100%) -Granulation Quality Red -Slough/Fibrin Yes -Necrosis Amt Small (1-33%) -Texture (Whitley-wound Skin Appearance) Assessed, Scarring -Moisture (Whitley-wound Skin Appearance) Assessed -Color (Whitley-wound Skin Appearance) Assessed -Temperature (Whitley-wound Skin No Abnormality Appearance) (Pt Warm) -Tenderness on Palpation (Whitley-wound No Skin Appearance) -Ulcer Cleansing Soap and Water -Foul Odor after Cleansing No -Anesthetic Used 4% Lidocaine Solution #1 R medial LE -Combined with other wound No -Current Size (cm) - Length 8.7 -Current Size (cm) - Width 1.5 -Current Size (cm) - Depth 0.1 -Total Square Cm 13.05 -Photo Taken No -Epithelialization Small 1-33% -Tunneling No -Undermining/Tunneling No -Circular Undermining No -Exudate Amt Large -Exudate Type Serosanguineous -Wound Margin Distinct, Outline Attached -Granulation Amt Large (67-100%) -Granulation Quality Red -Slough/Fibrin Yes -Necrosis Amt Small (1-33%) -Necrotic Tissue Type Adherent Slough -Texture (Whitley-wound Skin Appearance) Assessed, Scarring -Moisture (Whitley-wound Skin Appearance) Assessed -Color (Whitley-wound Skin Appearance) Assessed -Temperature (Whitley-wound Skin No Abnormality Appearance) (Pt Warm) -Tenderness on Palpation (Whitley-wound No Skin Appearance) -Ulcer Cleansing Soap and Water -Foul Odor after Cleansing No -Anesthetic Used 4% Lidocaine Solution Lower Limb Edema Present Yes Right Calf (cm) 40 Right Ankle (cm) 27 WC - Nurse 2 - General Ulcer CM Notes Start: 06/08/21 10:04 Freq: Status: Active Protocol: Activity Type Activity Date Activity User E-Sign Co-Sign Detail Recorded Client Recorded Date Recorded By Document 06/08/21 10:27 JULIANE [id number] 06/08/21 10:31 JULIANE 06/08/21 10:27 Wound Center Nurse 2 #2 Right Lateral LE -Time 10:27 -Correct Patient Yes -Correct Side, Site, Position Yes -Correct Procedure Yes -Procedure Performed Yes -Type of Procedure Debridement -Clinical Debridement Subcutaneous -Tissue Removed Subcutaneous -Post Debridement (cm) - Length 10.0 -Post Debridement (cm) - Width 1.7 -Post Debridement (cm) - Depth 0.1 -Total Square (Post) (cm) 17.00 -Area of Debridement (cm) - Length 10.0 -Area of Debridement (cm) - Width 1.7 -Total Square (Area) (cm) 17.00 -Tunneling No -Undermining/Tunneling No -Circular Undermining No -Wound/Ulcer Outcome Not Healed -Ulcer Cleansing Rinsed/ Irrigated with Saline -Foul Odor after Cleansing No -Bioengineered Tissue No -Bleeding Controlled with Pressure -Offloading No -Treatment Response Procedure Tolerated Well -Debridement - Subq, 1st 20sq cm Yes -Debridement, SubQ, ea addt'l 20sq cm 1 or part thereof #1 R medial LE -Time 10:28 -Correct Patient Yes -Correct Side, Site, Position Yes -Correct Procedure Yes -Procedure Performed Yes -Type of Procedure Debridement -Clinical Debridement Subcutaneous -Tissue Removed Subcutaneous -Post Debridement (cm) - Length 8.5 -Post Debridement (cm) - Width 1.4 -Post Debridement (cm) - Depth 0.1 -Total Square (Post) (cm) 11.90 -Area of Debridement (cm) - Length 8.5 -Area of Debridement (cm) - Width 1.4 -Total Square (Area) (cm) 11.90 -Tunneling No -Undermining/Tunneling No -Circular Undermining No -Wound/Ulcer Outcome Not Healed -Ulcer Cleansing Rinsed/ Irrigated with Saline -Foul Odor after Cleansing No -Bioengineered Tissue No -Bleeding Controlled with Pressure -Offloading No -Treatment Response Procedure Tolerated Well -Debridement - Subq, 1st 20sq cm No Pain Scale: 0-10 Numeric Is Patient Pain Free? Yes - Nurse 3 - General Ulcer D/C NN Start: 06/08/21 10:04 Freq: Status: Active Protocol: Activity Type Activity Date Activity User E-Sign Co-Sign Detail Recorded Client Recorded Date Recorded By Document 06/08/21 10:50 DL [id number] 06/08/21 10:52 DL 06/08/21 10:50 Wound Care Nurse 3 #2 Right Lateral LE -Ulcer Cleansing Wound Cleanser -Foul Odor after Cleansing No -Primary Dressing Applied Fibracol Plus 4x4 -Primary Dressing Covered/Secured with Dry Gauze & Roll Gauze, Secured with Tape -Fibracol Plus 4x4 1 #1 R medial LE -Foul Odor after Cleansing No -Other Dressing fibracol -Primary Dressing Covered/Secured with Dry Gauze & Roll Gauze, Secured with Tape Treatment Response Procedure Tolerated Well Pain Scale: 0-10 Numeric Is Patient Pain Free? Yes - Visit Discharge Discharge Condition Stable Ambulatory Status Ambulatory,Cane Transportation Private Auto Accompanied by Additional Wound Wound debrided: lateral leg ulcer Laterality: Right Type of Debridement: Excisional debridement Anesthesia Used: 5% Lidocaine Gel Depth: Down to and including healthy tissue and in the subcutaneous layer Percentage of wound debrided: 100 Instrument Used: 5mm curette Tissue Removed: Subcutaneous tissue and slough Severity: Fat Layer Exposed Amount of bleeding with debridement: Mild Bleeding Controlled with: Pressure Patient tolerated procedure: Patient tolerated procedure well Assessment/Plan Assessment/Plan (1) Ulcer of right lower extremity with fat layer exposed: CODE(S): L97.912 - Non-pressure chronic ulcer of unspecified part of right lower leg with fat layer exposed (2) Ulcer of right medial lower extremity with fat layer exposed: CODE(S): L97.812 - Non-pressure chronic ulcer of other part of right lower leg with fat layer exposed (3) Other acute postprocedural pain: CODE(S): G89.18 - Other acute postprocedural pain (4) History of fasciotomy: CODE(S): Z98.890 - Other specified postprocedural states (5) History of revascularization procedure of lower extremity: CODE(S): Z98.62 - Peripheral vascular angioplasty status (6) Clotting disorder: CODE(S): D68.9 - Coagulation defect, unspecified PLAN: Patient was seen and evaluated at the wound center today. A subcutaneous debridement was performed as documented above. He would benefit from an advanced wound healing product such as Epifix to help heal his medial leg ulcer. Wound care - Fibrocol + to both ulcer daily and cover with gauze. Double tubigrip for compression. Right ankle x-ray from 06/01/21 showed no fracture. Will see if any vascular studies have been done at [facility], if not, then we will order vascular and arterial studies. His Warfarin is managed by his PCP. He is seeing a financial writer to try and figure out his idiopathic clotting disorder. Follow up one week.
[2021-06-15 09:57] VITALS: BP 127/73; PULSE 76; RESP 16; TEMP 36.2; BMI 28.8
--- NOTE | 2021-06-15 11:03 | PCM.WC.PN ---
History of Present Illness Date of Service: 06/15/21 Chief Complaint: Right medial leg ulcer and right lateral leg ulcer. 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 He was emergently transferred to [facility] and underwent emergency surgery for revascularization of the RLE. He had extensive thrombectomy and also had a PTCA of the R PT artery and a 4 compartment fasciotomy. Post op course was complicated by ARF due to rhabdomyolysis (this has since resolved), acute blood loss anemia requiring transfusion and hyperkalemia (resolved). 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 He also had a loop recorder inserted at [facility]. While still in rehab on 03/28/21 he had a NSTEMI and was transferred to an acute monitored hospital bed. 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 He underwent thrombectomy/angioplasty of the LAD. The previous stent to the RCA was patent. He was also noted to have a 50% stenosis of the circ at the time of catheterization. ECHO showed a 45% EF with apical wall motion abnormality. Discharged home from rehab on 05/20/21. Right ankle x-ray 06/01/21 showed no acute fracture or dislocation, no joint space abnormality, soft tissue swelling noted. Linear radiopaque foreign body noted along the plantar soft tissues consistent with a needle. Wound care - Daily Fibracol + covered gauze daily to both the medial and lateral right leg ulcers. Double tubigrip for compression. He denies nausea and vomiting. He states his appetite is good. Progress of Wound: Both right leg medial and lateral leg ulcers are much improved, small in size, they are beefy pink. Objective Data Objective Data Vital Signs: Vital Signs Temp Pulse Resp BP 97.2 F L 76 16 127/73 H 06/15/21 09:57 06/15/21 09:57 06/15/21 09:57 06/15/21 09:57 Oxygen Delivery Method Room Air Weight: 195 lb Body Mass Index (BMI) 28.8 Charges/Coding Procedures Integumentary 111xxx-113xx: [id number] Jeanne subq tissue 20 sq cm/< Physical Exam Const alert and oriented x3 General Appearance: cooperative HEENT normocephalic Head and Scalp: atraumatic Resp normal respiratory effort Cardio regular rate Extremity Extremity Narrative: +1 bilateral lower leg edema. General Extremity: edema Skin Wound Narrative: Both right leg medial and lateral leg ulcers are much improved, small in size, they are beefy pink. Neuro CN's II-XII intact bilaterally Psych Appearance: grossly normal Debridement Note Debridement Note Wound debrided: Medial leg ulcer Laterality: Right Type of Debridement: Excisional debridement Anesthesia Used: 5% Lidocaine Gel Depth: Down to and including healthy tissue and in the subcutaneous layer Percentage of wound debrided: 100 Instrument Used: 5mm curette Tissue Removed: Subcutaneous tissue and slough Severity: Fat Layer Exposed Amount of bleeding with debridement: Mild Bleeding Controlled with: Pressure and Compression and gauze Patient tolerated procedure: Patient tolerated procedure well Post-Debridement Measurements and Additional Note: Post-Debridement Measurements/Treatment - Nurse 1 - General Ulcer Assessment Start: 06/08/21 10:04 Freq: Status: Active Protocol: RIVER Activity Type Activity Date Activity User E-Sign Co-Sign Detail Recorded Client Recorded Date Recorded By Document 06/08/21 10:04 [facility] [id number] 06/08/21 10:12 [facility] Document 06/15/21 09:57 [facility] [id number] 06/15/21 10:05 [facility] 06/08/21 06/15/21 10:04 09:57 - Today's Visit Information Type of service Follow-up Visit Follow-up Visit (Physician/ELECTRIC TOOL REPAIRER (Physician/ELECTRIC TOOL REPAIRER ) ) Arrival Mode Ambulatory Ambulatory Transfer Assistance None None Accompanied by Patient Identification Verified (Name & Yes Yes ) Patient Requires Transmission-Based No No Precautions Height and Weight Body Mass Index (BMI) 28.8 28.8 BMI Classification Overweight Overweight Vital Signs Temperature (97.8 F-99.1 F) 97.7 F L 97.2 F L Temperature Source Temporal Temporal Pulse Rate (60-100) 80 76 Pulse Location Monitor Monitor Respiratory Rate (12-18) 16 16 Respiratory rate source Observation Observation Oxygen Delivery Method Room Air Room Air Blood Pressure (90/60-120/80) 135/93 H 127/73 H Blood Pressure Mean (mm Hg) 107 91 Source Monitor Monitor Position Sitting Sitting Blood Pressure Location Right Arm Right Arm History Since Last Visit- (Skip if this is Patient's initial visit) Have you changed medications since your No No last visit? Any new allergies or adverse reactions No No Had a fall/change in ADL's that may No No increase risk of falls Signs or symptoms of abuse and/or No No neglect since last visit Have you been in the hospital since your No No last visit? Has dressing in place as prescribed Yes Yes Has compression in place as prescribed Yes Yes Has offloadiing in place as prescribed N/A N/A Experienced any changes in pain level or No No management Left Footwear Regular Shoe Regular Shoe Right Footwear Regular Shoe Regular Shoe Pain Scale: 0-10 Numeric Is Patient Pain Free? Yes Yes WC - Nurse 1 - General Ulcer Measurement Start: 06/08/21 10:04 Freq: Status: Active Protocol: Activity Type Activity Date Activity User E-Sign Co-Sign Detail Recorded Client Recorded Date Recorded By Document 06/08/21 10:04 [facility] [id number] 06/08/21 10:12 [facility] Document 06/15/21 09:57 [facility] [id number] 06/15/21 10:05 [facility] 06/08/21 06/15/21 10:04 09:57 Wound Center Nurse 1 #2 Right Lateral LE -Combined with other wound No No -Current Size (cm) - Length 10.5 10.2 -Current Size (cm) - Width 1.6 1.5 -Current Size (cm) - Depth 0.1 0.1 -Total Square Cm 16.80 15.30 -Photo Taken No -Epithelialization Small 1-33% Small 1-33% -Tunneling No No -Undermining/Tunneling No No -Circular Undermining No No -Exudate Amt Medium Medium -Exudate Type Serosanguineous Serosanguineous -Wound Margin Distinct, Distinct, Outline Outline Attached Attached -Granulation Amt Large (67-100%) Large (67-100%) -Granulation Quality Red Red -Slough/Fibrin Yes Yes -Necrosis Amt Small (1-33%) Small (1-33%) -Necrotic Tissue Type Adherent Slough -Texture (Whitley-wound Skin Appearance) Assessed, Assessed, Scarring Scarring -Moisture (Whitley-wound Skin Appearance) Assessed Assessed -Color (Whitley-wound Skin Appearance) Assessed Assessed, Erythema -Temperature (Whitley-wound Skin No Abnormality No Abnormality Appearance) (Pt Warm) (Pt Warm) -Tenderness on Palpation (Whitley-wound No Yes Skin Appearance) -Ulcer Cleansing Soap and Water Soap and Water -Foul Odor after Cleansing No No -Anesthetic Used 4% Lidocaine 4% Lidocaine Solution Solution #1 R medial LE -Combined with other wound No No -Current Size (cm) - Length 8.7 8.5 -Current Size (cm) - Width 1.5 1.2 -Current Size (cm) - Depth 0.1 0.1 -Total Square Cm 13.05 10.20 -Photo Taken No No -Epithelialization Small 1-33% Small 1-33% -Tunneling No No -Undermining/Tunneling No No -Circular Undermining No No -Exudate Amt Large Medium -Exudate Type Serosanguineous Serosanguineous -Wound Margin Distinct, Distinct, Outline Outline Attached Attached -Granulation Amt Large (67-100%) Large (67-100%) -Granulation Quality Red Red -Slough/Fibrin Yes Yes -Necrosis Amt Small (1-33%) Small (1-33%) -Necrotic Tissue Type Adherent Slough Adherent Slough -Texture (Whitley-wound Skin Appearance) Assessed, Assessed, Scarring Scarring -Moisture (Whitley-wound Skin Appearance) Assessed Assessed,Dry/ Scaly -Color (Whitley-wound Skin Appearance) Assessed Assessed -Temperature (Whitley-wound Skin No Abnormality No Abnormality Appearance) (Pt Warm) (Pt Warm) -Tenderness on Palpation (Whitley-wound No No Skin Appearance) -Ulcer Cleansing Soap and Water Soap and Water -Foul Odor after Cleansing No No -Anesthetic Used 4% Lidocaine 4% Lidocaine Solution Solution Lower Limb Edema Present Yes Yes Right Calf (cm) 40 40 Right Ankle (cm) 27 27 WC - Nurse 2 - General Ulcer CM Notes Start: 06/08/21 10:04 Freq: Status: Active Protocol: Activity Type Activity Date Activity User E-Sign Co-Sign Detail Recorded Client Recorded Date Recorded By Document 06/08/21 10:27 JULIANE [id number] 06/08/21 10:31 JULIANE Document 06/15/21 10:14 JULIANE [id number] 06/15/21 10:17 JF 06/08/21 06/15/21 10:27 10:14 Wound Center Nurse 2 #2 Right Lateral LE -Time 10:27 10:15 -Correct Patient Yes Yes -Correct Side, Site, Position Yes Yes -Correct Procedure Yes Yes -Procedure Performed Yes Yes -Type of Procedure Debridement Debridement -Clinical Debridement Subcutaneous Subcutaneous -Tissue Removed Subcutaneous Subcutaneous -Post Debridement (cm) - Length 10.0 9.0 -Post Debridement (cm) - Width 1.7 1.0 -Post Debridement (cm) - Depth 0.1 0.1 -Total Square (Post) (cm) 17.00 9.00 -Area of Debridement (cm) - Length 10.0 9.0 -Area of Debridement (cm) - Width 1.7 1.0 -Total Square (Area) (cm) 17.00 9.00 -Tunneling No No -Undermining/Tunneling No No -Circular Undermining No No -Wound/Ulcer Outcome Not Healed Not Healed -Ulcer Cleansing Rinsed/ Rinsed/ Irrigated with Irrigated with Saline Saline -Foul Odor after Cleansing No No -Bioengineered Tissue No No -Bleeding Controlled with Pressure Pressure -Offloading No -Type of Offloading Total Contact Cast (TCC) - Left ($) -Treatment Response Procedure Procedure Tolerated Well Tolerated Well -Debridement - Subq, 1st 20sq cm Yes Yes -Debridement, SubQ, ea addt'l 20sq cm 1 or part thereof #1 R medial LE -Time 10:28 10:15 -Correct Patient Yes Yes -Correct Side, Site, Position Yes Yes -Correct Procedure Yes Yes -Procedure Performed Yes Yes -Type of Procedure Debridement Debridement -Clinical Debridement Subcutaneous Subcutaneous -Tissue Removed Subcutaneous Subcutaneous -Post Debridement (cm) - Length 8.5 7.8 -Post Debridement (cm) - Width 1.4 1.0 -Post Debridement (cm) - Depth 0.1 0.1 -Total Square (Post) (cm) 11.90 7.80 -Area of Debridement (cm) - Length 8.5 7.8 -Area of Debridement (cm) - Width 1.4 1.0 -Total Square (Area) (cm) 11.90 7.80 -Tunneling No No -Undermining/Tunneling No No -Circular Undermining No No -Wound/Ulcer Outcome Not Healed Not Healed -Ulcer Cleansing Rinsed/ Rinsed/ Irrigated with Irrigated with Saline Saline -Foul Odor after Cleansing No No -Bioengineered Tissue No No -Bleeding Controlled with Pressure Pressure -Offloading No No -Treatment Response Procedure Procedure Tolerated Well Tolerated Well -Debridement - Subq, 1st 20sq cm No No Pain Scale: 0-10 Numeric Is Patient Pain Free? Yes Yes - Nurse 3 - General Ulcer D/C NN Start: 06/08/21 10:04 Freq: Status: Active Protocol: Activity Type Activity Date Activity User E-Sign Co-Sign Detail Recorded Client Recorded Date Recorded By Document 06/08/21 10:50 DL [id number] 06/08/21 10:52 DL Document 06/15/21 10:38 [facility] [id number] 06/15/21 10:39 BM 06/08/21 06/15/21 10:50 10:38 Wound Care Nurse 3 #2 Right Lateral LE -Ulcer Cleansing Wound Cleanser Rinsed/ Irrigated with Saline -Foul Odor after Cleansing No No -Primary Dressing Applied Fibracol Plus Fibracol Plus 4x4 4x4 -Primary Dressing Covered/Secured with Dry Gauze & Dry Gauze & Roll Gauze, Roll Gauze, Secured with Secured with Tape Tape,Other -Other Covering abd -Fibracol Plus 4x4 1 1 #1 R medial LE -Ulcer Cleansing Rinsed/ Irrigated with Saline -Foul Odor after Cleansing No No -Primary Dressing Applied Fibracol Plus 4x4 -Other Dressing fibracol -Primary Dressing Covered/Secured with Dry Gauze & Dry Gauze & Roll Gauze, Roll Gauze, Secured with Secured with Tape Tape,Other -Other Covering abd -Fibracol Plus 4x4 0 Right -Other pys own double layer tubi applied Treatment Response Procedure Procedure Tolerated Well Tolerated Well Pain Scale: 0-10 Numeric Is Patient Pain Free? Yes Yes - Visit Discharge Discharge Condition Stable Stable Ambulatory Status Ambulatory,Cane Ambulatory Transportation Private Auto Private Auto Accompanied by Additional Wound Wound debrided: Lateral leg ulcer Laterality: Right Type of Debridement: Excisional debridement Anesthesia Used: 5% Lidocaine Gel Depth: Down to and including healthy tissue and in the subcutaneous layer Percentage of wound debrided: 100 Instrument Used: 5mm curette Tissue Removed: Subcutaneous tissue and slough Severity: Fat Layer Exposed Amount of bleeding with debridement: Mild Bleeding Controlled with: Pressure and Compression and gauze Patient tolerated procedure: Patient tolerated procedure well Assessment/Plan Assessment/Plan (1) Ulcer of right lower extremity with fat layer exposed: CODE(S): L97.912 - Non-pressure chronic ulcer of unspecified part of right lower leg with fat layer exposed (2) Ulcer of right medial lower extremity with fat layer exposed: CODE(S): L97.812 - Non-pressure chronic ulcer of other part of right lower leg with fat layer exposed (3) Other acute postprocedural pain: CODE(S): G89.18 - Other acute postprocedural pain (4) History of fasciotomy: CODE(S): Z98.890 - Other specified postprocedural states (5) History of revascularization procedure of lower extremity: CODE(S): Z98.62 - Peripheral vascular angioplasty status (6) Clotting disorder: CODE(S): D68.9 - Coagulation defect, unspecified (7) Chronic anticoagulation: CODE(S): Z79.01 - detention (current) use of anticoagulants PLAN: Patient was seen and evaluated at the wound center today. A subcutaneous debridement was performed as documented above. He would benefit from an advanced wound healing product such as Epifix to help heal his medial leg ulcer. Wound care - Fibrocol + to both ulcer daily and cover with gauze. Double tubigrip for compression. Right ankle x-ray from 06/01/21 showed no fracture. He has vascular studies scheduled for June 23. His Warfarin is managed by his PCP. He is seeing a biofuels product development manager to try and figure out his idiopathic clotting disorder. Follow up 2 weeks.
[2021-06-29 09:45] VITALS: BP 129/95; PULSE 72; RESP 16; TEMP 36.5; BMI 28.8
--- NOTE | 2021-06-29 11:00 | RAD_ITS ---
HISTORY: SWELLING EXAMINATION/TECHNIQUE: XR Foot Min 3 Views: COMPARISON: 06/01/21 right ankle series FINDINGS: BONES/JOINTS: No acute fracture or dislocation. Preservation of the joint spaces. No sclerotic or destructive changes observed. SOFT TISSUES: Mild forefoot soft tissue swelling. No gas formations. Persistent linear radiodense foreign body in the plantar soft tissues at the level of the proximal first and second metatarsals. RAD/Foot min 3 Views IMPRESSION: No acute bony abnormality. Persistent radiodense foreign body in the plantar soft tissues consistent with a needle. at 1545 Reported and signed by: Harry Dominguez MD Electronically Signed: Harry Dominguez MD at 15:43 EST ,
--- NOTE | 2021-06-29 13:46 | PCM.WC.PN ---
History of Present Illness Date of Service: 06/29/21 Chief Complaint: Right medial leg ulcer and right lateral leg ulcer. 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 He was emergently transferred to [facility] and underwent emergency surgery for revascularization of the RLE. He had extensive thrombectomy and also had a PTCA of the R PT artery and a 4 compartment fasciotomy. Post op course was complicated by ARF due to rhabdomyolysis (this has since resolved), acute blood loss anemia requiring transfusion and hyperkalemia (resolved). 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 He also had a loop recorder inserted at [facility]. While still in rehab on 03/28/21 he had a NSTEMI and was transferred to an acute monitored hospital bed. 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 He underwent thrombectomy/angioplasty of the LAD. The previous stent to the RCA was patent. He was also noted to have a 50% stenosis of the circ at the time of catheterization. ECHO showed a 45% EF with apical wall motion abnormality. Discharged home from rehab on 05/20/21. Right ankle x-ray 06/01/21 showed no acute fracture or dislocation, no joint space abnormality, soft tissue swelling noted. Linear radiopaque foreign body noted along the plantar soft tissues consistent with a needle. Wound care - Daily moistened Fibracol + covered gauze daily to both the medial and lateral right leg ulcers. Double tubigrip topped with CASTILLO wrap for compression. He denies nausea and vomiting. He states his appetite is good. Progress of Wound: Both right leg medial and lateral leg ulcers are much improved, smaller in size, they are beefy pink. He is complaining about right foot pain. He states that it started when he twisted his ankle on the ice a month or so ago and his ankle xray was negative, but now he is having foot pain. Will obtain an x-ray of his right foot. Objective Data Objective Data Vital Signs: Vital Signs Temp Pulse Resp BP 97.7 F L 72 16 129/95 H 06/29/21 09:45 06/29/21 09:45 06/29/21 09:45 06/29/21 09:45 Oxygen Delivery Method Room Air Weight: 195 lb Body Mass Index (BMI) 28.8 Charges/Coding Procedures Integumentary 111xxx-113xx: [id number] Jeanne subq tissue 20 sq cm/< Physical Exam Const alert and oriented x3 General Appearance: cooperative HEENT normocephalic Head and Scalp: atraumatic Resp normal respiratory effort Cardio regular rate Extremity Extremity Narrative: +1 bilateral lower extremity edema. He has mild right foot edema. He is able to place weight on his foot. Skin Wound Narrative: Right medial leg ulcer and right lateral leg ulcer are beefy pink and healing well. Neuro CN's II-XII intact bilaterally Psych Appearance: grossly normal Debridement Note Debridement Note Wound debrided: medial leg ulcer Laterality: Right Type of Debridement: Excisional debridement Anesthesia Used: 5% Lidocaine Gel Depth: Down to and including healthy tissue and in the subcutaneous layer Percentage of wound debrided: 100 Instrument Used: 5mm curette Tissue Removed: Nonviable tissue and slough Severity: Fat Layer Exposed Amount of bleeding with debridement: Mild Bleeding Controlled with: Pressure Patient tolerated procedure: Patient tolerated procedure well Post-Debridement Measurements and Additional Note: Post-Debridement Measurements/Treatment - Nurse 1 - General Ulcer Assessment Start: 06/08/21 10:04 Freq: Status: Active Protocol: RIVER Activity Type Activity Date Activity User E-Sign Co-Sign Detail Recorded Client Recorded Date Recorded By Document 06/08/21 10:[address] [facility] [id number] 06/08/21 10:[address] [facility] Document 06/15/21 09:[address] [facility] [id number] 06/15/21 10:[address] [facility] Document 06/29/21 09:[address] [facility] [id number] 06/29/21 09:[address] [facility] 06/08/21 06/15/21 06/29/21 10:04 09:57 09:45 - Today's Visit Information Type of service Follow-up Visit Follow-up Visit Follow-up Visit (Physician/STRUCTURES ASSEMBLER (Physician/STRUCTURES ASSEMBLER (Physician/STRUCTURES ASSEMBLER ) ) ) Arrival Mode Ambulatory Ambulatory Ambulatory Transfer Assistance None None None Accompanied by Patient Identification Verified (Name & Yes Yes Yes ) Patient Requires Transmission-Based No No No Precautions Height and Weight Body Mass Index (BMI) 28.8 28.8 28.8 BMI Classification Overweight Overweight Overweight Vital Signs Temperature (97.8 F-99.1 F) 97.7 F L 97.2 F L 97.7 F L Temperature Source Temporal Temporal Temporal Pulse Rate (60-100) 80 76 72 Pulse Location Monitor Monitor Monitor Respiratory Rate (12-18) 16 16 16 Respiratory rate source Observation Observation Observation Oxygen Delivery Method Room Air Room Air Room Air Blood Pressure (90/60-120/80) 135/93 H 127/73 H 129/95 H Blood Pressure Mean (mm Hg) 107 91 106 Source Monitor Monitor Monitor Position Sitting Sitting Sitting Blood Pressure Location Right Arm Right Arm Left Arm History Since Last Visit- (Skip if this is Patient's initial visit) Have you changed medications since your No No No last visit? Any new allergies or adverse reactions No No No Had a fall/change in ADL's that may No No No increase risk of falls Signs or symptoms of abuse and/or No No No neglect since last visit Have you been in the hospital since your No No No last visit? Has dressing in place as prescribed Yes Yes Yes Has compression in place as prescribed Yes Yes Yes Has offloadiing in place as prescribed N/A N/A N/A Experienced any changes in pain level or No No No management Left Footwear Regular Shoe Regular Shoe Regular Shoe Right Footwear Regular Shoe Regular Shoe Regular Shoe Pain Scale: 0-10 Numeric Is Patient Pain Free? Yes Yes Yes WC - Nurse 1 - General Ulcer Measurement Start: 06/08/21 10:04 Freq: Status: Active Protocol: Activity Type Activity Date Activity User E-Sign Co-Sign Detail Recorded Client Recorded Date Recorded By Document 06/08/21 10:[address] [facility] [id number] 06/08/21 10:[address] [facility] Document 06/15/21 09:[address] [facility] [id number] 06/15/21 10:[address] [facility] Document 06/29/21 09:[address] [facility] [id number] 06/29/21 09:53 BMF 06/08/21 06/15/21 06/29/21 10:04 09:57 09:45 Wound Center Nurse 1 #2 Right Lateral LE -Combined with other wound No No No -Current Size (cm) - Length 10.5 10.2 9.5 -Current Size (cm) - Width 1.6 1.5 0.7 -Current Size (cm) - Depth 0.1 0.1 0.1 -Total Square Cm 16.80 15.30 6.65 -Date of Last Picture (Recall this 06/29/21 field) -Photo Taken No Yes -Epithelialization Small 1-33% Small 1-33% Medium 34-66% -Tunneling No No No -Undermining/Tunneling No No No -Circular Undermining No No No -Exudate Amt Medium Medium Medium -Exudate Type Serosanguineous Serosanguineous Serosanguineous -Wound Margin Distinct, Distinct, Distinct, Outline Outline Outline Attached Attached Attached -Granulation Amt Large (67-100%) Large (67-100%) Large (67-100%) -Granulation Quality Red Red Red -Slough/Fibrin Yes Yes Yes -Necrosis Amt Small (1-33%) Small (1-33%) Small (1-33%) -Necrotic Tissue Type Adherent Slough Adherent Slough -Texture (Whitley-wound Skin Appearance) Assessed, Assessed, Assessed, Scarring Scarring Scarring -Moisture (Whitley-wound Skin Appearance) Assessed Assessed Assessed,Dry/ Scaly -Color (Whitley-wound Skin Appearance) Assessed Assessed, Assessed Erythema -Temperature (Whitley-wound Skin No Abnormality No Abnormality No Abnormality Appearance) (Pt Warm) (Pt Warm) (Pt Warm) -Tenderness on Palpation (Whitley-wound No Yes No Skin Appearance) -Ulcer Cleansing Soap and Water Soap and Water Soap and Water -Foul Odor after Cleansing No No No -Anesthetic Used 4% Lidocaine 4% Lidocaine 4% Lidocaine Solution Solution Solution #1 R medial LE -Combined with other wound No No No -Current Size (cm) - Length 8.7 8.5 2 -Current Size (cm) - Width 1.5 1.2 0.3 -Current Size (cm) - Depth 0.1 0.1 0.1 -Total Square Cm 13.05 10.20 0.6 -Date of Last Picture (Recall this 06/29/21 field) -Photo Taken No No Yes -Epithelialization Small 1-33% Small 1-33% Small 1-33% -Tunneling No No No -Undermining/Tunneling No No No -Circular Undermining No No No -Exudate Amt Large Medium Medium -Exudate Type Serosanguineous Serosanguineous Serosanguineous -Wound Margin Distinct, Distinct, Distinct, Outline Outline Outline Attached Attached Attached -Granulation Amt Large (67-100%) Large (67-100%) Large (67-100%) -Granulation Quality Red Red Red -Slough/Fibrin Yes Yes No -Necrosis Amt Small (1-33%) Small (1-33%) None Present (0 %) -Necrotic Tissue Type Adherent Slough Adherent Slough -Texture (Whitley-wound Skin Appearance) Assessed, Assessed, Assessed, Scarring Scarring Scarring -Moisture (Whitley-wound Skin Appearance) Assessed Assessed,Dry/ Assessed,Dry/ Scaly Scaly -Color (Whitley-wound Skin Appearance) Assessed Assessed Assessed -Temperature (Whitley-wound Skin No Abnormality No Abnormality No Abnormality Appearance) (Pt Warm) (Pt Warm) (Pt Warm) -Tenderness on Palpation (Whitley-wound No No No Skin Appearance) -Ulcer Cleansing Soap and Water Soap and Water Soap and Water -Foul Odor after Cleansing No No No -Anesthetic Used 4% Lidocaine 4% Lidocaine 4% Lidocaine Solution Solution Solution Lower Limb Edema Present Yes Yes Yes Right Calf (cm) 40 40 41 Right Ankle (cm) 27 27 27 - Nurse 2 - General Ulcer CM Notes Start: 06/08/21 10:04 Freq: Status: Active Protocol: Activity Type Activity Date Activity User E-Sign Co-Sign Detail Recorded Client Recorded Date Recorded By Document 06/08/21 10:27 [id number] 06/08/21 10:31 Document 06/15/21 10:14 [id number] 06/15/21 10:17 Edit Result 06/15/21 10:14 JF (1) [id number] 06/16/21 06:35 PL Document 06/29/21 10:06 [id number] 06/29/21 10:10 (1) #2 Right Lateral LE - Type of Offloading Total Contact Cast => (TCC) - Left ($) => 06/08/21 06/15/21 06/29/21 10:27 10:14 10:06 Wound Center Nurse 2 #2 Right Lateral LE -Time 10:27 10:15 10:06 -Correct Patient Yes Yes Yes -Correct Side, Site, Position Yes Yes Yes -Correct Procedure Yes Yes Yes -Procedure Performed Yes Yes Yes -Type of Procedure Debridement Debridement Debridement -Clinical Debridement Subcutaneous Subcutaneous Subcutaneous -Tissue Removed Subcutaneous Subcutaneous Subcutaneous -Post Debridement (cm) - Length 10.0 9.0 7.5 -Post Debridement (cm) - Width 1.7 1.0 0.6 -Post Debridement (cm) - Depth 0.1 0.1 0.1 -Total Square (Post) (cm) 17.00 9.00 4.50 -Area of Debridement (cm) - Length 10.0 9.0 7.5 -Area of Debridement (cm) - Width 1.7 1.0 0.6 -Total Square (Area) (cm) 17.00 9.00 4.50 -Tunneling No No No -Undermining/Tunneling No No No -Circular Undermining No No No -Wound/Ulcer Outcome Not Healed Not Healed Not Healed -Ulcer Cleansing Rinsed/ Rinsed/ Rinsed/ Irrigated with Irrigated with Irrigated with Saline Saline Saline -Foul Odor after Cleansing No No No -Bioengineered Tissue No No No -Bleeding Controlled with Pressure Pressure Pressure -Offloading No No -Treatment Response Procedure Procedure Procedure Tolerated Well Tolerated Well Tolerated Well -Debridement - Subq, 1st 20sq cm Yes Yes No -Debridement, SubQ, ea addt'l 20sq cm 1 or part thereof #1 R medial LE -Time 10:28 10:15 10:07 -Correct Patient Yes Yes Yes -Correct Side, Site, Position Yes Yes Yes -Correct Procedure Yes Yes Yes -Procedure Performed Yes Yes Yes -Type of Procedure Debridement Debridement Debridement -Clinical Debridement Subcutaneous Subcutaneous Subcutaneous -Tissue Removed Subcutaneous Subcutaneous Subcutaneous -Post Debridement (cm) - Length 8.5 7.8 1.6 -Post Debridement (cm) - Width 1.4 1.0 0.5 -Post Debridement (cm) - Depth 0.1 0.1 0.1 -Total Square (Post) (cm) 11.90 7.80 0.80 -Area of Debridement (cm) - Length 8.5 7.8 1.6 -Area of Debridement (cm) - Width 1.4 1.0 0.5 -Total Square (Area) (cm) 11.90 7.80 0.80 -Tunneling No No No -Undermining/Tunneling No No No -Circular Undermining No No No -Wound/Ulcer Outcome Not Healed Not Healed Not Healed -Ulcer Cleansing Rinsed/ Rinsed/ Rinsed/ Irrigated with Irrigated with Irrigated with Saline Saline Saline -Foul Odor after Cleansing No No No -Bioengineered Tissue No No No -Bleeding Controlled with Pressure Pressure Pressure -Offloading No No No -Treatment Response Procedure Procedure Procedure Tolerated Well Tolerated Well Tolerated Well -Debridement - Subq, 1st 20sq cm No No Yes Pain Scale: 0-10 Numeric Is Patient Pain Free? Yes Yes Yes WC - Nurse 3 - General Ulcer D/C NN Start: 06/08/21 10:04 Freq: Status: Active Protocol: Activity Type Activity Date Activity User E-Sign Co-Sign Detail Recorded Client Recorded Date Recorded By Document 06/08/21 10:50 DL [id number] 06/08/21 10:52 DL Document 06/15/21 10:[address] [facility] [id number] 06/15/21 10:39 BM Document 06/29/21 10:[address] [facility] [id number] 06/29/21 10:42 BMF 06/08/21 06/15/21 06/29/21 10:50 10:38 10:39 Wound Care Nurse 3 #2 Right Lateral LE -Ulcer Cleansing Wound Cleanser Rinsed/ Rinsed/ Irrigated with Irrigated with Saline Saline -Foul Odor after Cleansing No No No -Primary Dressing Applied Fibracol Plus Fibracol Plus Other 4x4 4x4 -Other Dressing hydrogel today in clinic only -Primary Dressing Covered/Secured with Dry Gauze & Dry Gauze & Dry Gauze & Roll Gauze, Roll Gauze, Roll Gauze, Secured with Secured with Secured with Tape Tape,Other Tape -Other Covering abd abd -Fibracol Plus 4x4 1 1 #1 R medial LE -Ulcer Cleansing Rinsed/ Rinsed/ Irrigated with Irrigated with Saline Saline -Foul Odor after Cleansing No No No -Primary Dressing Applied Fibracol Plus Other 4x4 -Other Dressing fibracol hydrogel in clinic only -Primary Dressing Covered/Secured with Dry Gauze & Dry Gauze & Dry Gauze & Roll Gauze, Roll Gauze, Roll Gauze, Secured with Secured with Secured with Tape Tape,Other Tape,Other -Other Covering abd abd -Fibracol Plus 4x4 0 Right -Other pys own double applied pts own layer tubi double layer applied tubigrip Treatment Response Procedure Procedure Procedure Tolerated Well Tolerated Well Tolerated Well Pain Scale: 0-10 Numeric Is Patient Pain Free? Yes Yes Yes WC - Visit Discharge Discharge Condition Stable Stable Stable Ambulatory Status Ambulatory,Cane Ambulatory Ambulatory Transportation Private Auto Private Auto Private Auto Accompanied by Additional Wound Wound debrided: Lateral leg ulcer Laterality: Right Type of Debridement: Excisional debridement Anesthesia Used: 4% Lidocaine Solution and 5% Lidocaine Gel Depth: Down to and including healthy tissue and in the subcutaneous layer Percentage of wound debrided: 100 Instrument Used: 5mm curette Tissue Removed: Nonviable tissue and slough Severity: Limited To Skin Breakdown Amount of bleeding with debridement: Mild Bleeding Controlled with: Pressure Patient tolerated procedure: Patient tolerated procedure well Assessment/Plan Assessment/Plan (1) Ulcer of right lower extremity with fat layer exposed: CODE(S): L97.912 - Non-pressure chronic ulcer of unspecified part of right lower leg with fat layer exposed (2) Ulcer of right medial lower extremity with fat layer exposed: CODE(S): L97.812 - Non-pressure chronic ulcer of other part of right lower leg with fat layer exposed (3) History of revascularization procedure of lower extremity: CODE(S): Z98.62 - Peripheral vascular angioplasty status (4) Clotting disorder: CODE(S): D68.9 - Coagulation defect, unspecified (5) Chronic anticoagulation: CODE(S): Z79.01 - correction (current) use of anticoagulants PLAN: Patient was seen and evaluated at the wound center today. A subcutaneous debridement was performed as documented above. Wound care - Moistened Fibrocol + to both ulcer daily and cover with gauze. Double tubigrip for compression in place and Castillo wrap over the Tubigrip. He was approved for epi fix, but because he has had such a significant improvement in his ulcers, will hold off on using it at this time. Because he is coming planing of right foot pain, will order an x-ray of his right foot. His right ankle x-ray was negative last month. He states he has been having this right foot pain since he twisted his ankle. Right ankle x-ray from 06/01/21 showed no fracture. He had venous duplex ultrasound on 06/23/2021 Segmental valvular incompetence is noted within the great saphenous veins bilaterally. Small saphenous veins are patent and competent bilaterally. A non-vascular, hypoechoic structure is noted in the right proximal thigh, measuring 2.1 cm x 2.39 cm. This may represent a hematoma or seroma. Clinical correlation is advised. His Warfarin is managed by his PCP. He is seeing a tube builder to try and figure out his idiopathic clotting disorder. Follow up 2 weeks.
== END 2021-06-29 23:59 | disposition home or self-care (01) ==
LOC: WC 09:45
PROVIDERS: PCP Family Medicine; Visit Provider Nurse Practitioner Family
DX: L97.812 Non-pressure chronic ulcer of other part of right lower leg with fat layer exposed (principal); D68.9 Coagulation defect, unspecified; I25.2 Old myocardial infarction; M79.671 Pain in right foot; Z79.01 Long term (current) use of anticoagulants; Z79.02 Long term (current) use of antithrombotics/antiplatelets; Z79.899 Other long term (current) drug therapy; Z86.73 Personal history of transient ischemic attack (TIA), and cerebral infarction without residual deficits; Z98.62 Peripheral vascular angioplasty status
CPT/HCPCS: 11042; 11045; 29445; 73630

== ENCOUNTER 2021-07-13 09:47 | Outpatient (RCR) | payer MEDICAID, SELFPAY ==
[2021-06-30 00:37] VITALS: BP 129/95; PULSE 72; RESP 16; TEMP 36.5; BMI 28.8
[2021-07-13 09:52] VITALS: BP 137/86; PULSE 75; RESP 16; TEMP 36; BMI 28.8
--- NOTE | 2021-07-13 12:04 | PN.PCM_ITS ---
History of Present Illness Date of Service: 07/13/21 Chief Complaint: Right medial leg ulcer and right lateral leg ulcer. 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 He was emergently transferred to [facility] and underwent emergency surgery for revascularization of the RLE. He had extensive thrombectomy and also had a PTCA of the R PT artery and a 4 compartment fasciotomy. Post op course was complicated by ARF due to rhabdomyolysis (this has since resolved), acute blood loss anemia requiring transfusion and hyperkalemia (resolved). 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 He also had a loop recorder inserted at [facility]. While still in rehab on 03/28/21 he had a NSTEMI and was transferred to an acute monitored hospital bed. 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 He underwent thrombectomy/angioplasty of the LAD. The previous stent to the RCA was patent. He was also noted to have a 50% stenosis of the circ at the time of catheterization. ECHO showed a 45% EF with apical wall motion abnormality. Discharged home from rehab on 05/20/21. Right ankle x-ray 06/01/21 showed no acute fracture or dislocation, no joint space abnormality, soft tissue swelling noted. Linear radiopaque foreign body noted along the plantar soft tissues consistent with a needle. Wound care - Daily moistened Fibracol + topped with adaptic and covered gauze daily to the right lateral right leg ulcer. Massage the medial healed ulcer 1-2 times daily with lotion to help soften the scarring. Double tubigrip topped with JENNIFER wrap for compression. He denies nausea and vomiting. He states his appetite is good. Progress of Wound: Right medial ulcer is healed today. Right lateral ulcer is improved and smaller in size. Objective Data Objective Data Vital Signs: Vital Signs Temp Pulse Resp BP 96.8 F L 75 16 137/86 H 07/13/21 09:52 07/13/21 09:52 07/13/21 09:52 07/13/21 09:52 Oxygen Delivery Method Room Air Weight: 195 lb Body Mass Index (BMI) 28.8 Charges/Coding Procedures Integumentary 111xxx-113xx: 14717 Jeanne subq tissue 20 sq cm/< Physical Exam Const alert and oriented x3 General Appearance: cooperative HEENT normocephalic Resp normal respiratory effort Cardio regular rate Extremity normal capillary refill Extremity Narrative: +2 edema Skin Wound Narrative: Right medial leg ulcer is healed. Right lateral leg ulcer is smaller in size and healing well. Neuro CN's II-XII intact bilaterally Psych Appearance: grossly normal Debridement Note Debridement Note Wound debrided: lateral leg ulcer Laterality: Right Type of Debridement: Excisional debridement Depth: Down to and including healthy tissue and in the subcutaneous layer Percentage of wound debrided: 100 Instrument Used: 3mm curette Tissue Removed: Subcutaneous tissue and slough Severity: Fat Layer Exposed Bleeding Controlled with: Pressure Patient tolerated procedure: Patient tolerated procedure well Post-Debridement Measurements and Additional Note: Post-Debridement Measurements/Treatment - Nurse 1 - General Ulcer Assessment Start: 07/13/21 09:52 Freq: Status: Active Protocol: RIVER Activity Type Activity Date Activity User E-Sign Co-Sign Detail Recorded Client Recorded Date Recorded By Document 07/13/21 09:52 [facility] [id number] 07/13/21 09:59 [facility] 07/13/21 09:52 - Today's Visit Information Type of service Follow-up Visit (Physician/BUSINESS OPERATIONS ANALYST ) Arrival Mode Ambulatory Transfer Assistance None Accompanied by Patient Identification Verified (Name & Yes ) Patient Requires Transmission-Based No Precautions Height and Weight Body Mass Index (BMI) 28.8 BMI Classification Overweight Vital Signs Temperature (97.8 F-99.1 F) 96.8 F L Temperature Source Temporal Pulse Rate (60-100) 75 Pulse Location Monitor Respiratory Rate (12-18) 16 Respiratory rate source Observation Oxygen Delivery Method Room Air Blood Pressure (90/60-120/80) 137/86 H Blood Pressure Mean (mm Hg) 103 Source Monitor Position Sitting Blood Pressure Location Right Arm History Since Last Visit- (Skip if this is Patient's initial visit) Have you changed medications since your No last visit? Any new allergies or adverse reactions No Had a fall/change in ADL's that may No increase risk of falls Signs or symptoms of abuse and/or No neglect since last visit Have you been in the hospital since your No last visit? Has dressing in place as prescribed No Has compression in place as prescribed Yes Has offloadiing in place as prescribed N/A Experienced any changes in pain level or No management Left Footwear Regular Shoe Right Footwear Regular Shoe Pain Scale: 0-10 Numeric Is Patient Pain Free? Yes WC - Nurse 1 - General Ulcer Measurement Start: 07/13/21 09:52 Freq: Status: Active Protocol: Activity Type Activity Date Activity User E-Sign Co-Sign Detail Recorded Client Recorded Date Recorded By Document 07/13/21 09:52 [facility] [id number] 07/13/21 09:59 [facility] 07/13/21 09:52 Wound Center Nurse 1 #2 Right Lateral LE -Combined with other wound No -Current Size (cm) - Length 3 -Current Size (cm) - Width 0.5 -Current Size (cm) - Depth 0.1 -Total Square Cm 1.5 -Date of Last Picture (Recall this 07/13/21 field) -Photo Taken Yes -Epithelialization Medium 34-66% -Tunneling No -Undermining/Tunneling No -Circular Undermining No -Exudate Amt Small -Exudate Type Serosanguineous -Wound Margin Distinct, Outline Attached -Granulation Amt Small (1-33%) -Granulation Quality Mullins -Slough/Fibrin Yes -Necrosis Amt Medium (34-66%) -Necrotic Tissue Type Adherent Slough -Texture (Whitley-wound Skin Appearance) Assessed, Scarring -Moisture (Whitley-wound Skin Appearance) Assessed,Dry/ Scaly -Color (Whitley-wound Skin Appearance) Assessed -Temperature (Whitley-wound Skin No Abnormality Appearance) (Pt Warm) -Tenderness on Palpation (Whitley-wound No Skin Appearance) -Ulcer Cleansing Rinsed/ Irrigated with Saline -Foul Odor after Cleansing No -Anesthetic Used 4% Lidocaine Solution #1 R medial LE -Combined with other wound No -Current Size (cm) - Length 0.1 -Current Size (cm) - Width 0.1 -Current Size (cm) - Depth 0.1 -Total Square Cm 0.01 -Date of Last Picture (Recall this 07/13/21 field) -Photo Taken Yes -Epithelialization Large 67-100% -Tunneling No -Undermining/Tunneling No -Circular Undermining No -Exudate Amt Small -Exudate Type Serosanguineous -Wound Margin Distinct, Outline Attached -Texture (Whitley-wound Skin Appearance) Assessed, Scarring -Moisture (Whitley-wound Skin Appearance) Assessed,Dry/ Scaly -Color (Whitley-wound Skin Appearance) Assessed -Temperature (Whitley-wound Skin No Abnormality Appearance) (Pt Warm) -Tenderness on Palpation (Whitley-wound No Skin Appearance) -Ulcer Cleansing Rinsed/ Irrigated with Saline -Foul Odor after Cleansing No -Anesthetic Used 4% Lidocaine Solution Lower Limb Edema Present Yes Right Calf (cm) 43.7 Right Ankle (cm) 28 WC - Nurse 2 - General Ulcer CM Notes Start: 07/13/21 09:52 Freq: Status: Active Protocol: Activity Type Activity Date Activity User E-Sign Co-Sign Detail Recorded Client Recorded Date Recorded By Document 07/13/21 11:07 SETH [id number] 07/13/21 11:08 PL 07/13/21 11:07 Wound Center Nurse 2 #2 Right Lateral LE -Time 10:17 -Correct Patient Yes -Correct Side, Site, Position Yes -Correct Procedure Yes -Procedure Performed Yes -Type of Procedure Debridement -Clinical Debridement Subcutaneous -Tissue Removed Subcutaneous -Post Debridement (cm) - Length 3.7 -Post Debridement (cm) - Width 0.7 -Post Debridement (cm) - Depth 0.1 -Total Square (Post) (cm) 2.59 -Area of Debridement (cm) - Length 3.7 -Area of Debridement (cm) - Width 0.7 -Total Square (Area) (cm) 2.59 -Tunneling No -Undermining/Tunneling No -Circular Undermining No -Wound/Ulcer Outcome Not Healed -Ulcer Cleansing Rinsed/ Irrigated with Saline -Foul Odor after Cleansing No -Bioengineered Tissue No -Bleeding Controlled with Pressure -Treatment Response Procedure Tolerated Well -Debridement - Subq, 1st 20sq cm Yes #1 R medial LE -Procedure Performed No -Wound/Ulcer Outcome Healed- Epithelialized Pain Scale: 0-10 Numeric Is Patient Pain Free? Yes - Nurse 3 - General Ulcer D/C NN Start: 07/13/21 09:52 Freq: Status: Active Protocol: Activity Type Activity Date Activity User E-Sign Co-Sign Detail Recorded Client Recorded Date Recorded By Document 07/13/21 10:34 MEREDITH [id number] 07/13/21 10:36 KR 07/13/21 10:34 Wound Care Nurse 3 #2 Right Lateral LE -Ulcer Cleansing Rinsed/ Irrigated with Saline -Primary Dressing Applied Fibracol Plus 4x4,NonAdherent Contact Layer -Primary Dressing Covered/Secured with Dry Gauze, Secured with Tape -Fibracol Plus 4x4 1 #1 R medial LE -Ulcer Cleansing Rinsed/ Irrigated with Saline -Primary Dressing Applied NonAdherent Contact Layer -Primary Dressing Covered/Secured with Dry Gauze, Secured with Tape Right -Tubular Bandage Double Layer -Size of Tubigrip Used Size E -Size E ($) 2 Pain Scale: 0-10 Numeric Is Patient Pain Free? Yes Assessment/Plan Assessment/Plan (1) Ulcer of right lower extremity with fat layer exposed: CODE(S): L97.912 - Non-pressure chronic ulcer of unspecified part of right lower leg with fat layer exposed (2) Ulcer of right medial lower extremity with fat layer exposed: CODE(S): L97.812 - Non-pressure chronic ulcer of other part of right lower leg with fat layer exposed (3) History of revascularization procedure of lower extremity: CODE(S): Z98.62 - Peripheral vascular angioplasty status (4) Clotting disorder: CODE(S): D68.9 - Coagulation defect, unspecified (5) Chronic anticoagulation: CODE(S): Z79.01 - [facility] (current) use of anticoagulants PLAN: Patient was seen and evaluated at the wound center today. A subcutaneous debridement was performed as documented above. Wound care - Daily moistened Fibracol + topped with adaptic and covered gauze daily to the right lateral right leg ulcer. Massage the medial healed ulcer 1-2 times daily with lotion to help soften the scarring. Double tubigrip topped with JENNIFER wrap for compression. Because he is coming planing of right foot pain, ordered an x-ray of his right foot which was done 06/29/21 which showed No acute bony abnormality. Persistent radiodense foreign body in the plantar soft tissues consistent with a needle. Patient was referred to a pro shop attendant for his foot pain and the needle in his foot. Patient saw the pro shop attendant who stated that there is no reason to remove the needle. Right ankle x-ray from 06/01/21 showed no fracture. He had venous duplex ultrasound on 06/23/2021 Segmental valvular incompetence is noted within the great saphenous veins bilaterally. Small saphenous veins are patent and competent bilaterally. A non-vascular, hypoechoic structure is noted in the right proximal thigh, measuring 2.1 cm x 2.39 cm. This may represent a hematoma or seroma. Clinical correlation is advised. His Warfarin is managed by his PCP. He is seeing a finisher denture to try and figure out his idiopathic clotting disorder. Follow up 2 weeks.
== END 2021-07-30 23:59 | disposition home or self-care (01) ==
LOC: WC 09:47
PROVIDERS: PCP Family Medicine; Visit Provider Nurse Practitioner Family
DX: L97.812 Non-pressure chronic ulcer of other part of right lower leg with fat layer exposed (principal); L97.912 Non-pressure chronic ulcer of unspecified part of right lower leg with fat layer exposed; D68.9 Coagulation defect, unspecified; Z79.01 Long term (current) use of anticoagulants; Z79.02 Long term (current) use of antithrombotics/antiplatelets; Z79.52 Long term (current) use of systemic steroids; Z79.899 Other long term (current) drug therapy; I25.2 Old myocardial infarction; Z86.73 Personal history of transient ischemic attack (TIA), and cerebral infarction without residual deficits; Z98.62 Peripheral vascular angioplasty status
CPT/HCPCS: 11042